=== PATIENT | male | born 1980 | race Caucasian/White ===

== ENCOUNTER 2017-04-23 15:14 | Inpatient (IN) | payer SELFPAY ==
[~2017-04-23] VITALS: Ht 182.9 cm; Wt 106.6 kg
[2017-04-23] VITALS (19 sets, daily range): BP systolic 96–175; BP diastolic 49–75; PULSE 107–134; RESP 25–34; TEMP 98–99.9; O2SAT 85–100
[2017-04-23] MEDS ORDERED: BACT400T PO (15:24)
[2017-04-23] MEDS ORDERED: CLIN300C5 PO (15:24)
[2017-04-23] MEDS ORDERED: PROPOFOL 1000 MG/100 ML INJ 100 ML ONE (15:38)
[2017-04-23] MEDS: PROPOFOL 1000 MG/100 ML INJ 100 ML IV PRN ×4 (15:44→22:41)
[2017-04-23] MEDS ORDERED: SUCCINYLCHOLINE CHLORIDE 100 MG/5 ML SYRINGE IV PUSH ONE (15:45)
[2017-04-23] MEDS ORDERED: ETOMIDATE 20 MG/10 ML VIAL IV PUSH ONE (15:45)
[2017-04-23] MEDS ORDERED: SODIUM CHLOR 0.9% 1000 ML INJ 1,000 ML IV ONE ×4 (15:45→17:00)
[2017-04-23] MEDS ORDERED: VANCOMYCIN INJ 1,300 MG in SODIUM CHLORID 0.9% 500 ML INJ 500 ML IV ONE (15:45)
[2017-04-23] MEDS ORDERED: PIPERACIL-TAZO 3.375 GM PREMIX 50 ML IV ONE (15:45)
--- NOTE | 2017-04-23 16:02 | PD ---
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 Pt is very tachypneic and saturating at mid 80s on 100% nonrebreather. 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 Pt has been having abdominal pain as well with fever, vomiting. Has been having bilateral lower extremity edema for 2 weeks. Pt has been on bactrim and clindamycin for a foot infection. [facility] Social History Alcohol Use: Yes Tobacco Use: Yes Substance Use: Yes Allergies-Medications (Allergen,Severity, Reaction): Coded Allergies: No Known Allergies (Unverified , 04/23/17) Reported Meds & Prescriptions Reported Meds & Active Scripts Active Reported Bactrim (Sulfamethoxazole-Trimethoprim) 400-80 Mg Tab 1 Tab PO BID Clindamycin (Clindamycin HCl) 300 Mg Cap 300 Mg PO Q6H Review of Systems ROS Limitations: Clinical Condition Physical Exam Narrative GENERAL: 36yo in severe distress. SKIN: Focused skin assessment warm/dry. HEAD: Atraumatic. Normocephalic. EYES: Pupils equal and round. No scleral icterus. No injection or drainage. ENT: No nasal bleeding or discharge. Mucous membranes pink and moist. NECK: Trachea midline. No JVD. CARDIOVASCULAR: Regular rate and rhythm. No murmur appreciated. RESPIRATORY: + accessory muscle use. Slight end inspiratory wheezing. GASTROINTESTINAL: Abdomen soft, non-tender, nondistended. MUSCULOSKELETAL: +Bilateral lower extremity edema. NEUROLOGICAL: Awake and alert but in severe distress. Data Data Last Documented VS Vital Signs Date Time Temp Pulse Resp B/P (MAP) Pulse Ox O2 Delivery O2 Flow Rate FiO2 04/23/17 17:05 126 133/60 (84) 97 Ventilator 04/23/17 16:24 100 04/23/17 15:19 98.0 Orders Orders Propofol 1000 Mg/100 Ml Inj (Diprivan 10 (04/23/17 15:38) Chest, Single Ap (04/23/17 ) Blood Culture (04/23/17 15:36) Complete Blood Count With Diff (04/23/17 15:36) Comprehensive Metabolic Panel (04/23/17 15:36) Prothrombin Time / Inr (Pt) (04/23/17 15:36) Act Partial Throm Time (Ptt) (04/23/17 15:36) Troponin I (04/23/17 15:36) Propofol 1000 Mg/100 Ml Inj (Diprivan 10 (04/23/17 15:45) ^ Infusion (04/23/17 15:36) RASS (04/23/17 15:36) Neurological Rass Scale BESS.Q2H (04/23/17 15:36) Etomidate Inj (Amidate Inj) (04/23/17 15:45) Succinylcholine Inj (Quelicin Inj) (04/23/17 15:45) Urinary Catheter Insert/Apply (04/23/17 15:36) Lactic Acid Sepsis Protocol (04/23/17 15:36) Sodium Chlor 0.9% 1000 Ml Inj (Ns 1000 M (04/23/17 15:45) Vancomycin Inj (Vancomycin Inj) (04/23/17 15:45) Piperacil-Tazo 3.375 Gm Premix (Zosyn 3. (04/23/17 15:45) Arterial Blood Gas (Abg) (04/23/17 ) Precautions (04/23/17 16:02) Us Leg Venous Doppler Bilat (04/23/17 ) Neurological Rass Scale Q30MX2,Q2HX4,Q4H (04/23/17 16:25) Fentanyl Drip (Fentanyl Drip) (04/23/17 16:30) Fentanyl Drip (Fentanyl Drip) (04/23/17 16:39) Sodium Chlor 0.9% 1000 Ml Inj (Ns 1000 M (04/23/17 17:00) Sodium Chlor 0.9% 1000 Ml Inj (Ns 1000 M (04/23/17 17:00) Sodium Chlor 0.9% 1000 Ml Inj (Ns 1000 M (04/23/17 17:00) Elevate Head Of Bed (04/23/17 17:10) Chlorhexidine 0.12% Liq (Peridex 0.12% L (04/23/17 20:00) Resp Ventilation- Pressure (04/23/17 ) Restraints Non-Violent BESS.Q3H (04/23/17 17:10) Ventilator Weaning Readiness BESS.DAILY@0800 (04/23/17 17:10) Resp Spont Breath Trial (Sbt) (04/23/17 ) Propofol 1000 Mg/100 Ml Inj (Diprivan 10 (04/23/17 17:15) Neurological Rass Scale Q30MX2,Q2HX4,Q4H (04/23/17 17:10) Midazolam 100 Mg/100 Ml Inj (Versed Inj) (04/23/17 17:15) Neurological Rass Scale Q30MX2,Q2HX4,Q4H (04/23/17 17:10) Neurological Rass Scale Q30MX2,Q2HX4,Q4H (04/23/17 17:10) Fentanyl Drip (Fentanyl Drip) (04/23/17 17:15) Urinalysis - C+S If Indicated (04/23/17 17:14) Admit Order (Ed Use Only) (04/23/17 17:15) Labs Laboratory Tests Test 04/23/17 08:30 04/23/17 15:45 04/23/17 16:13 Nasal Screen MRSA (PCR) MRSA NOT DETECTED White Blood Count 37.5 TH/MM3 Red Blood Count 3.83 MIL/MM3 Hemoglobin 9.9 GM/DL Hematocrit 31.8 % Mean Corpuscular Volume 83.2 FL Mean Corpuscular Hemoglobin 25.9 PG Mean Corpuscular Hemoglobin Concent 31.1 % Red Cell Distribution Width 16.2 % Platelet Count 206 TH/MM3 Mean Platelet Volume 10.1 FL Neutrophils (%) (Auto) 83.6 % Lymphocytes (%) (Auto) 10.8 % Monocytes (%) (Auto) 4.6 % Eosinophils (%) (Auto) 0.2 % Basophils (%) (Auto) 0.8 % Neutrophils # (Auto) 31.4 TH/MM3 Lymphocytes # (Auto) 4.1 TH/MM3 Monocytes # (Auto) 1.7 TH/MM3 Eosinophils # (Auto) 0.1 TH/MM3 Basophils # (Auto) 0.3 TH/MM3 CBC Comment AUTO DIFF Differential Total Cells Counted 100 Neutrophils % (Manual) 83 % Band Neutrophils % 2 % Lymphocytes % 10 % Monocytes % 3 % Neutrophils # (Manual) 32.6 TH/MM3 Myelocytes 2 % Nucleated Red Blood Cells 1 /100 WBC Differential Comment FINAL DIFF MANUAL Platelet Estimate NORMAL Platelet Morphology Comment NORMAL Fabian Cells 1+ Keratocytes 1+ Prothrombin Time 20.7 SEC Prothromb Time International Ratio 1.8 RATIO Activated Partial Thromboplast Time 29.6 SEC Fibrinogen 59 mg/dL Urine Color YELLOW Urine Turbidity HAZY Urine pH 5.0 Urine Specific [place] 1.018 Urine Protein 30 mg/dL Urine Glucose (UA) 70 mg/dL Urine Ketones NEG mg/dL Urine Occult Blood MOD Urine Nitrite NEG Urine Bilirubin NEG Urine Urobilinogen LESS THAN 2.0 MG/DL Urine Leukocyte Esterase NEG Urine WBC 1 /hpf Urine Amorphous Sediment RARE Urine Bacteria RARE /hpf Urine Hyaline Casts 4 /lpf Urine Granular Casts 9 /lpf Urine Mucus FEW /lpf Microscopic Urinalysis Comment CULT NOT INDICATED Urine Eosinophils NONE SEEN /HPF Urine Random Creatinine 123.5 MG/DL Urine Random Sodium 7 MEQ/L Lactic Acid Level 13.7 mmol/L Blood Gas Puncture Site LT RADIAL Blood Gas Patient Temperature 98.6 Blood Gas HCO3 11 mmol/L Blood Gas Base Excess -15.7 mmol/L Blood Gas Oxygen Saturation 97 % Arterial Blood pH 7.19 Arterial Blood Partial Pressure CO2 30 mmHg Arterial Blood Partial Pressure O2 184 mmHG Arterial Blood Oxygen Content 13.0 Vol % Arterial Blood Carboxyhemoglobin 0.9 % Arterial Blood Methemoglobin 0.4 % Blood Gas Hemoglobin 9.2 G/DL Oxygen Delivery Device VENTILATOR Blood Gas Ventilator Setting AC 14/550/5+ Blood Gas Inspired Oxygen 100 % [facility] Medical Decision Making Medical Screen Exam Complete: Yes Emergency Medical Condition: Yes Differential Diagnosis PCP pneumonia vs. Septic emboli vs. Tuberculosis vs. ARDS Narrative Course 36yo M with history of IVDA was in severe respiratory distress and saturating at 80s on 100% nonrebreather. Unable to obtain access we emergently placed a right femoral central line placed and was able to give medication for intubation. Labs reviewed, leukocytosis at 37.5. H/H low at 9.9/31.8 likely secondary to severe sepsis. CMP was a recollect and has not resulted yet. Lactic acid elevated at 13.7. Pt received NS IVF and vancomycin and zosyn. CXR showed bihilar airspace infiltrates which can be seen in pulmonary edema, pneumonia (especially aspiration), or some inhalation injury. ET tube above ayaz. Bilateral lower ext without DVT. CT pulmonary was changed to CT chest with IV contrast to look for septic emboli. CTa/p also pending. Will not give contrast without creatinine result as pt is in severe sepsis. Discussed with Dr. Lemons and accepted to his service. Critical Care Narrative Aggregate critical care time was 50 minutes. Time to perform other separately billable procedures was not included in the critical care time. My time did not include minutes spent treating any other patients simultaneously or on activities that did not directly contribute to the patient's treatment. The services I provided to this patient were to treat and/or prevent clinically significant deterioration that could result in: respiratory distress and . I provided critical care services requiring my management, as noted below: Chart data review, documentation time, medication orders and management, vital sign assessments/reviewing monitor data, ordering and reviewing lab tests, ordering and interpreting/reviewing x-rays and diagnostic studies, care of the patient and discussion of the patient with the admitting physicians. Procedures Procedure Narrative The patient was put in optimal position for the procedure. Rapid sequence intubation was initiated by me using 20 milligrams of etomidate IV and 100 milligrams of succinylcholine IV. The patient was intubated with a 7.5 cuffed endotracheal tube. Tube placement was confirmed by visualization of the tube and balloon passing through the cords, capnometry and subsequent chest x-ray. Breath sounds were equal and well aerated bilaterally postintubation. No breath sounds over stomach. Patient tolerated procedure well. CENTRAL VENOUS LINE: The site was prepped with chlorhexidine and sterily draped. The deep vein was cannulated using normal Seldinger technique. A triple lumen central line was placed in the right femoral site and secured with simple interrupted suture. The site was sterilely dressed. The patient tolerated the procedure well. Diagnosis Primary Impression: Acute respiratory failure with hypoxia Admitting Information Admitting Physician Requests: Jenifer Rob DO Apr 23, 2017 16:01
--- NOTE | 2017-04-23 16:04 | RADRPT ---
EXAM DATE/TIME: 04/23/2017 15:43 [facility] COMPARISON: No previous studies available for comparison. INDICATIONS : Shortness of breath. MEDICAL HISTORY : Unobtainable. SURGICAL HISTORY : Unobtainable. ENCOUNTER: Initial ACUITY: 1 day PAIN SCORE: Non-responsive. LOCATION: Bilateral chest FINDINGS: A single view of the chest demonstrates bihilar infiltrates. Endotracheal tube is identified at the t horacic inlet. Nasogastric tube enters the stomach and extends off the inferior aspect of the image. Heart size is normal. Osseous structures are intact. CONCLUSION: 1. Bihilar airspace infiltrates which can be seen in pulmonary edema, pneumonia (especially aspiratio n) or some inhalation injuries. 2. Endotracheal tube appropriately positioned above the ayaz. Nasogastric tube enters the stomach a nd extends off the inferior aspect of the image Nam Amaya MD on April 23, 2017 at 15:58 Board Certified Radiologist. This report was verified electronically.
[2017-04-23 16:10] LABS: AUTOMATED NEUTROPHIL # 31.4 TH/MM3 (1.8-7.7); BASOPHIL # 0.3 TH/MM3 (0-0.2); BASOPHIL % 0.8 % (0.0-2.0); EOSINOPHIL # 0.1 TH/MM3 (0-0.4); EOSINOPHIL % 0.2 % (0.0-4.0); HEMATOCRIT 31.8 % (39.0-51.0); LYMPH % 10.8 % (9.0-44.0); LYMPHOCYTE # 4.1 TH/MM3 (1.0-4.8); MEAN CELL VOLUME 83.2 FL (80.0-100.0); MEAN CORPUSCULAR HEMOGLOBIN 25.9 PG (27.0-34.0); MEAN CORPUSCULAR HGB CONC 31.1 % (32.0-36.0); MONO % 4.6 % (0.0-8.0); NEUT % 83.6 % (16.0-70.0); PLATELET COUNT 206 TH/MM3 (150-450); RED BLOOD COUNT 3.83 MIL/MM3 (4.50-5.90); RED CELL DISTRIBUTION WIDTH 16.2 % (11.6-17.2); WHITE BLOOD COUNT 37.5 TH/MM3 (4.0-11.0)
[2017-04-23 16:14] LABS: HEMO FLAGS AUTO DIFF
[2017-04-23 16:18] LABS: BLOOD GAS BASE EXCESS -15.7 mmol/L (-2-2); BLOOD GAS CARBOXYHEMOGLOBIN 0.9 % (0-4); BLOOD GAS HCO3 11 mmol/L (22-26); BLOOD GAS METHEMOGLOBIN 0.4 % (0-2); BLOOD GAS O2 HGB SATURATION 97 % (90-100); BLOOD GAS PCO2 30 mmHg (38-42); BLOOD GAS PO2 184 mmHG (61-120); BLOOD GAS TOTAL HGB 9.2 G/DL (12.0-16.0); CRITICAL VALUE YES; OXYGEN DEVICE VENTILATOR; TEMP CORR TO 98.6
[2017-04-23 16:19] LABS: DRAW SITE LT RADIAL; FIO2 100 %; NUMBER OF ARTERIAL PUNCTURES 1; STAT YES; ULNAR PULSE PRESENT; VENT SETTINGS AC 14/550/5+
[2017-04-23 16:23] LABS: APTT (PATIENT) 29.6 SEC (24.3-30.1); INTERNATIONAL NORMALIZED RATIO 1.8 RATIO; PROTHROMBIN TIME - PATIENT 20.7 SEC (9.8-11.6)
[2017-04-23] MEDS ORDERED: fentaNYL DRIP 250 ML IV PRN (16:30)
[2017-04-23] MEDS ORDERED: fentaNYL DRIP 250 ML ONE (16:39)
--- NOTE | 2017-04-23 17:02 | RADRPT ---
EXAM DATE/TIME: 04/23/2017 16:26 [facility] COMPARISON: No previous studies available for comparison. INDICATIONS : Bilateral leg swelling. MEDICAL HISTORY : Alcohol use. Substance use. Tobacco use. SURGICAL HISTORY : None. ENCOUNTER: Initial ACUITY: 1 day PAIN SCORE: Non-responsive LOCATION: Bilateral legs. TECHNIQUE: Venous ultrasound of the left and right leg was performed from the inguinal ligament to the proximal calf. Real-time, color Doppler and spectral tracing, compression and augmentation techniques were us ed. FINDINGS: RIGHT LEG: There is normal compressibility of the deep venous system from the inguinal region to the proximal ca lf. No echogenic clot is seen in the lumen of the common femoral, femoral, popliteal, and posterior tibial veins. There is a normal response of the venous system to proximal and distal augmentation an d respiration. LEFT LEG: There is normal compressibility of the deep venous system from the inguinal region to the proximal ca lf. No echogenic clot is seen in the lumen of the common femoral, femoral, popliteal, and posterior tibial veins. There is a normal response of the venous system to proximal and distal augmentation an d respiration. CONCLUSION: No DVT is identified within either lower extremity. Lucian Cai MD on April 23, 2017 at 17:00 Board Certified Radiologist. This report was verified electronically.
[2017-04-23 17:08] LABS: BANDS 2 % (0-6); CORRECTED NUCLEATED RBC 1 /100 WBC (0-0); MYELOCYTES 2 % (0-0); NEUTROPHIL # MANUAL DIFF 32.6 TH/MM3 (1.8-7.7); POLYS (SEG NEUTROPHILS) 83 % (16-70); WBC DIFF SAMPLE 100
[2017-04-23 17:09] LABS: BURR CELLS 1+ (NORMAL); KERATOCYTES 1+ (NORMAL)
[2017-04-23 17:10] LABS: PLATELET ESTIMATE SMEAR NORMAL (NORMAL); PLATELET MORPHOLOGY NORMAL (NORMAL); SCAN/DIFF FINAL DIFF MANUAL
[2017-04-23] MEDS ORDERED: SODIUM CHLORIDE 0.9% FLUSH 10 ML FLUSH IV FLUSH PRN ×2 (17:15→17:30)
[2017-04-23] MEDS ORDERED: CHLORHEXIDINE GLUCONATE 2 % 1 PACK (2 CLOTHS) TOP PRN ×2 (17:15→17:30)
[2017-04-23] MEDS ORDERED: Vancomycin Consult Pharmacy 1 EA OTHER SCH (17:15)
[2017-04-23] MEDS ORDERED: MISCELLANEOUS NURSING INFORMATION XX SCH ×2 (17:15→17:30)
[2017-04-23] MEDS ORDERED: SODIUM CHLOR 0.9% 1000 ML INJ 1,000 ML IV SCH (17:19)
[2017-04-23] MEDS ORDERED: BISACODYL 10 MG SUPP RECTAL PRN (17:30)
[2017-04-23] MEDS ORDERED: SENNOSIDES 8.6 MG TAB PO PRN (17:30)
[2017-04-23] MEDS ORDERED: RESP: ALBUTEROL 2.5 MG/3 ML NEB (PRN) INH (17:30)
[2017-04-23] MEDS ORDERED: ACETAMINOPHEN 325 MG TAB PO PRN (17:30)
[2017-04-23] MEDS ORDERED: ONDANSETRON HCL 4 MG/2 ML VIAL IV PUSH PRN (17:30)
[2017-04-23] MEDS ORDERED: MAGNESIUM HYDROXIDE SUSP 30 ML CUP PO PRN (17:30)
[2017-04-23] MEDS ORDERED: LACTULOSE SYRUP 20 GM/30 ML CUP PO PRN (17:30)
[2017-04-23] MEDS ORDERED: MIDAZOLAM 100 MG/100 ML INJ 100 ML ONE (17:39)
--- NOTE | 2017-04-23 17:55 | HHI.HP ---
[facility] Critical Care Medicine Primary Care Physician No Primary Care Physician Admission Diagnosis Hypoxic respiratory failure Diagnosis: (1) Acute hypercapnic respiratory failure Diagnosis: Principal (2) IV drug abuse Diagnosis: Principal (3) Lactic acid acidosis Diagnosis: Principal (4) Anemia Diagnosis: Principal (5) Leukocytosis Diagnosis: Principal (6) Elevated troponin Diagnosis: Principal (7) Transaminitis Diagnosis: Principal (8) Hyponatremia Diagnosis: Principal (9) Hypoalbuminemia Diagnosis: Principal (10) Acute kidney injury Diagnosis: Principal (11) Hyperkalemia Diagnosis: Principal (12) Elevated INR Diagnosis: Principal Chief Complaint: Presents to [place] of acutely short of breath, nausea and vomiting Travel History International Travel<30 Days: No Contact w/Intl Traveler <30 Da: No Traveled to Known Affected Are: No History of Present Illness This is a 36-year-old male. He admission 04/23/2017. Past mesentery history is defined as prior IV drug use, Mycobacterium diagnosis untreated and bilateral lower extremity cellulitis. Today he presents to [place] ED in acute hypercapnic hypoxic respiratory distress. According to records, prior to intubation patient was on nonrebreather with saturations in the mid 80s. 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 Pt has been having abdominal pain as well with fever, vomiting. Has been having bilateral lower extremity edema for 2 weeks. Pt has been on Bactrim and clindamycin for a foot infection. Patient was intubated with a 7.5 ET tube after receiving 20 mg etomidate 100 mg succinylcholine. Patient has significant respiratory and anion gap metabolic acidosis on his ABG. Chest x-ray showed bilateral upper lobe infiltrates versus pneumonia versus edema versus other. Ultrasound bilateral lower extremities revealed no DVT. CT thorax currently ordered along with head, abdomen and pelvis. Patient had a significant leukocytosis of 37,000. Anemia with a hemoglobin 10. Also pertinent, Patient elevated creatinine around 2.2. Elevated potassium 5.7. Elevated transaminases. With an AST in the 1400s ALT in the 500s. Low sodium. Elevated troponin. EKG and T echocardiogram is currently pending. Patient did received piperacillin/tazobactam and vancomycin in the ED. 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 I attempted to contact me at . Voicemail Review of Systems ROS Limitations: Intubated Past Family Social History Allergies: Coded Allergies: No Known Allergies (Unverified , 04/23/17) Past Medical History IV drug use Past Surgical History None documented Reported Medications Bactrim (Sulfamethoxazole-Trimethoprim) 400-80 Mg Tab 1 Tab PO BID Clindamycin (Clindamycin HCl) 300 Mg Cap 300 Mg PO Q6H Active Ordered Medications Reviewed in EMR Family History Mother and father is currently unobtainable Social History Prior documentation of IV drug use noted. Positive tobacco. No alcohol Physical Exam Vital Signs Vital Signs Date Time Temp Pulse Resp B/P (MAP) Pulse Ox O2 Delivery O2 Flow Rate FiO2 04/23/17 17:34 121 131/63 (85) 100 Ventilator 04/23/17 17:22 100 100 04/23/17 17:05 126 133/60 (84) 97 Ventilator 04/23/17 16:27 124 137/62 (87) 100 Ventilator 04/23/17 16:24 100 100 04/23/17 16:13 129 144/65 (91) 100 Ventilator 04/23/17 15:54 93 100 04/23/17 15:36 124 166/75 (105) 97 Ventilator 04/23/17 15:28 125 161/68 (99) 92 Ventilator 04/23/17 15:27 100 04/23/17 15:19 98.0 134 175/74 (107) 85 Physical Exam GENERAL: 36-year-old male, critically ill currently orotracheally intubated SKIN: Warm and very wet. Well-perfused. HEAD: Atraumatic. Normocephalic. EYES: Pupils equal and round about 2 mm bilaterally and reactive. No scleral icterus. No injection or drainage. ENT: No nasal bleeding or discharge. Mucous membranes pink and moist. Oropharynx without erythema NECK: Trachea midline. No JVD. CARDIOVASCULAR: Tachycardic, RR. S1, S2. No S4. I do not appreciate a murmur RESPIRATORY: Positive accessory muscle use. Rhonchorous breath sounds are appreciated throughout lung. His anterior and posteriorly. GASTROINTESTINAL: Abdomen soft, non-tender, nondistended. Hypoactive bowel sounds appreciated MUSCULOSKELETAL: Extremities with 1+ bilateral lower extremity below the knee edema. No obvious deformities. NEUROLOGICAL: Patient is currently orotracheally intubated on propofol and fentanyl drips. Positive gag. Positive corneal reflex. Mouth is open. Withdraws to pain bilateral upper and lower extremities. Laboratory Laboratory Tests Test 04/23/17 15:45 04/23/17 16:13 04/23/17 17:20 04/23/17 17:31 White Blood Count 37.5 Red Blood Count 3.83 Hemoglobin 9.9 Hematocrit 31.8 Mean Corpuscular Volume 83.2 Mean Corpuscular Hemoglobin 25.9 Mean Corpuscular Hemoglobin Concent 31.1 Red Cell Distribution Width 16.2 Platelet Count 206 Mean Platelet Volume 10.1 Neutrophils (%) (Auto) 83.6 Lymphocytes (%) (Auto) 10.8 Monocytes (%) (Auto) 4.6 Eosinophils (%) (Auto) 0.2 Basophils (%) (Auto) 0.8 Neutrophils # (Auto) 31.4 Lymphocytes # (Auto) 4.1 Monocytes # (Auto) 1.7 Eosinophils # (Auto) 0.1 Basophils # (Auto) 0.3 CBC Comment AUTO DIFF Differential Total Cells Counted 100 Neutrophils % (Manual) 83 Band Neutrophils % 2 Lymphocytes % 10 Monocytes % 3 Neutrophils # (Manual) 32.6 Myelocytes 2 Nucleated Red Blood Cells 1 Differential Comment FINAL DIFF MANUAL Platelet Estimate NORMAL Platelet Morphology Comment NORMAL [place] Cells 1+ Keratocytes 1+ Prothrombin Time 20.7 Prothromb Time International Ratio 1.8 Activated Partial Thromboplast Time 29.6 Lactic Acid Level 13.7 Blood Gas Puncture Site LT RADIAL Blood Gas Patient Temperature 98.6 Blood Gas HCO3 11 Blood Gas Base Excess -15.7 Blood Gas Oxygen Saturation 97 Arterial Blood pH 7.19 Arterial Blood Partial Pressure CO2 30 Arterial Blood Partial Pressure O2 184 Arterial Blood Oxygen Content 13.0 Arterial Blood Carboxyhemoglobin 0.9 Arterial Blood Methemoglobin 0.4 Blood Gas Hemoglobin 9.2 Oxygen Delivery Device VENTILATOR Blood Gas Ventilator Setting AC 14/550/5+ Blood Gas Inspired Oxygen 100 Date/Time Source Procedure Growth Status 04/23/17 15:50 Blood Peripheral Aerobic Blood Culture Pending Received 04/23/17 15:50 Blood Peripheral Anaerobic Blood Culture Pending Received Result Diagram: 04/23/17 1545 Imaging Last Impressions Lower Extremity Ultrasound 04/23/17 0000 Signed Impressions: Service Date/Time: Sunday, April 23, 2017 16:26 - CONCLUSION: No DVT is identified within either lower extremity. Lucian Cai MD Chest X-Ray 04/23/17 0000 Signed Impressions: Service Date/Time: Sunday, April 23, 2017 15:43 - CONCLUSION: 1. Bihilar airspace infiltrates which can be seen in pulmonary edema, pneumonia ( especially aspiration) or some inhalation injuries. 2. Endotracheal tube appropriately positioned above the ayaz. Nasogastric tube enters the stomach and extends off the inferior aspect of the image Nam Amaya MD Septic Shock Reassessment Heart: Other Lungs: Other Skin: Warm, Moist Peripheral Pulses: Weak Right Radial Weak Left Radial Weak Right Popliteal Weak Left Popliteal Weak Right Dorsalis Pedis Weak Left Dorsalis Pedis Weak Right Posterior Tibial Weak Left Posterior Tibial Capillary Refill: Brisk, <2 seconds Caprini VTE Risk Assessment Caprini VTE Risk Assessment: Mod/High Risk (score >= 2) VTE Pharm Contraindication: Coagulopathy,INR elevated Caprini Risk Assessment Model Point Value = 1 Point Value = 2 Point Value = 3 Point Value = 5 Age 41-60 Minor surgery BMI > 25 kg/m2 Swollen legs Varicose veins or History of unexplained or recurrent spontaneous Oral contraceptives or hormone replacement Sepsis (< 1 month) Serious lung disease, including pneumonia (< 1 month) Abnormal pulmonary function Acute myocardial infarction Congestive heart failure (< 1 month) History of inflammatory bowel disease Medical patient at bed rest Age 61-74 Arthroscopic surgery Major open surgery (> 45 min) Laparoscopic surgery (> 45 min) Malignancy Confined to bed (> 72 hours) Immobilizing plaster cast Central venous access Age >= 75 History of VTE Family history of VTE Factor V Leiden Prothrombin [id number] Lupus anticoagulant Anticardiolipin antibodies Elevated serum homocysteine Heparin-induced thrombocytopenia Other congenital or acquired thrombophilia Stroke (< 1 month) Elective arthroplasty Hip, pelvis, or leg fracture Acute spinal cord injury (< 1 month) Prophylaxis Regimen Total Risk Factor Score Risk Level Prophylaxis Regimen 0-1 Low Early ambulation 2 Moderate Order ONE of the following: *Sequential Compression Device (SCD) *Heparin 5000 units SQ BID 3-4 Higher Order ONE of the following medications: *Heparin 5000 units SQ TID *Enoxaparin/Lovenox 40 mg SQ daily (WT < 150 kg, CrCl > 30 mL/min) *Enoxaparin/Lovenox 30 mg SQ daily (WT < 150 kg, CrCl > 10-29 mL/min) *Enoxaparin/Lovenox 30 mg SQ BID (WT < 150 kg, CrCl > 30 mL/min) AND/OR *Sequential Compression Device (SCD) 5 or more Highest Order ONE of the following medications: *Heparin 5000 units SQ TID (Preferred with Epidurals) *Enoxaparin/Lovenox 40 mg SQ daily (WT < 150 kg, CrCl > 30 mL/min) *Enoxaparin/Lovenox 30 mg SQ daily (WT < 150 kg, CrCl > 10-29 mL/min) *Enoxaparin/Lovenox 30 mg SQ BID (WT < 150 kg, CrCl > 30 mL/min) AND *Sequential Compression Device (SCD) Assessment and Plan Assessment and Plan Neuro/Psych: Acute toxic metabolic encephalopathy Patient is currently on propofol/fentanyl and midazolam drips for sedation/ analgesia while intubated Goal of RASS -[address] brain pending Urine drug screen, alcohol, slightly less, acetaminophen all pending Started on thiamine, folate and multivitamin with possible prior history of EtOH use. CV: Sinus tachycardia Severe sepsis with multiorgan failure Lactic acidosis Elevated troponin - likely demand ischemia type II secondary to sepsis Status post 5 L crystalloid in ED Currently normal saline at 84 cc an hour Currently not requiring vasopressors and/or anti-hypertensives Lactate 13.7-9. Trend until cleared Trend troponins every 8 hours 2 until clear. EKG/echo cardiac him to be followed up Resp: Acute hypoxic hypercapnic respiratory failure PRVC 16/500/1/5/100 Ventilator bundle Albuterol/ipratropium aerosols every 6 hours with albuterol aerosols every 2 hours as needed for dyspnea Spontaneous breathing trials when clinically indicated Today's chest x-ray revealed upper lobe infiltrate/pulmonary edema CT thorax pending GI: Elevated transaminases Hypoalbuminemia Patient is currently nothing by mouth Lansoprazole for GI prophylaxis Accurate sodium/senna 1 tablet twice a day for bowel regimen Follow-up on CT abdomen/pelvis rule out hepatic etiologies. CPK and hepatitis panels pending : Hutchins catheter has been placed for accurate I's and O's in a critically ill patient Endo: Sliding-scale insulin with Accu-Cheks to maintain euglycemia Novulon r every 6 hours/low regimen Check TSH Renal: Acute kidney injury Urine sodium, creatinine and eosinophils pending Status post 5 L crystalloid in the ED. CT abdomen/pelvis rule out hydronephrosis. Monitor urine output with Hutchins catheter Accurate I's and O's Heme: Leukocytosis Normocytic anemia Elevated INR Follow CBC daily. Follow trends Vitamin K 10 milligrams IV 1 now. Recheck coags in a.m. and fibrinogen ID: History of Mycobacterium exposure? Severe sepsis with history of IV drug use Patient is currently in vancomycin, cefepime, metronidazole and azithromycin Received 1 dose of vancomycin and piperacillin/tazobactam in ED Blood cultures 2, urine, sputum, influenza and urine pneumococcal and Legionella antigens all pending 2-D acute cardiac him rule out endocarditis Infectious disease was consulted MSK: PT evaluate and treat Dopplers bilateral extremity is negative for DVT FEN: Hyponatremia Hyperkalemia 1 g Calcium gluconate, 10 units insulin/one ampule D50 and Kayexalate 1. Recheck potassium with EKG 3 hours. Currently normal saline at 6 84 cc an hour Access - Utilize right femoral CVL day 1 placed in ED. Prophylaxis -GI -lansoprazole - DVT - SCD/holding pharmacological prophylaxis elevated INR of 1.8 Critical Care: The total critical care time was 35 minutes. Time to perform other separately billable procedures was not included in the critical care time. Code Status Full code Discussed Condition With , ED physician. Attempt to contact Dr. Figueroa at [phone]. No answer. Problem Qualifiers (1) Anemia: Qualified Codes: D64.9 - Anemia, unspecified (2) Leukocytosis: Qualified Codes: D72.829 - Elevated white blood cell count, unspecified Antony Lemons MD Apr 23, 2017 17:55
[2017-04-23] MEDS: ARTIFICIAL TEARS OPTH SOLN 15 ML BTL EACH EYE SCH (18:00)
[2017-04-23 18:01] LABS: LACTIC ACID GHOST NOT REPORTABLE
[2017-04-23 18:12] LABS: CALCIUM-PROTEIN CORRECTED 7.5 MG/DL (8.5-10.1); POTASSIUM 5.6 MEQ/L (3.5-5.1); TOTAL BILIRUBIN ADULT 0.9 MG/DL (0.2-1.0)
[2017-04-23] MEDS ORDERED: DEXTROSE 50% IN WATER 50 ML VIAL(D50) IV PUSH ONE (18:30)
[2017-04-23] MEDS ORDERED: CALCIUM GLUCONATE 10% 1 GM/10 ML VIAL SLOW IVP ONE (18:30)
[2017-04-23] MEDS ORDERED: CHLORHEXIDINE GLUCONATE 2 % 1 PACK (2 CLOTHS)(extra cloths) TOPICAL PRN (18:30)
[2017-04-23] MEDS ORDERED: SODIUM POLYSTYRENE SULFONATE SUSP 15 GM/60 ML CUP PO ONE (18:30)
[2017-04-23] MEDS ORDERED: SODIUM BICARBONATE 8.4% SOLN 50 MEQ/50 ML VIAL SLOW IVP ONE (18:30)
[2017-04-23] MEDS ORDERED: INSULIN HUMAN REGULAR 1,000 UNITS/10 ML VIAL IV PUSH ONE (18:30)
[2017-04-23 18:33] LABS: BACTERIA, URINE RARE /hpf; BLOOD, URINE MOD (NEG); COMMENT (UR) CULT NOT INDICATED; CULTURE IF INDICATED CULT NOT INDICATED; GLUCOSE,URINE 70 mg/dL (NEG); GRANULAR CAST, URINE 9 /lpf; HYALINE CAST, URINE 4 /lpf (RARE); KETONE, URINE NEG (NEG); MUCUS URINE FEW /lpf (OCC); NITRITE,URINE NEG (NEG); URINE COLOR YELLOW (YELLW/STRAW)
[2017-04-23] MEDS ORDERED: GLUCAGON 1 MG/ML VIAL OTHER PRN (18:45)
[2017-04-23] MEDS ORDERED: THIAMINE INJ 100 MG in SODIUM CHLORIDE 0.9% INJ 100 ML IV ONE (18:45)
[2017-04-23] MEDS ORDERED: PHYTONADIONE INJ 10 MG in SODIUM CHLORIDE 0.9% INJ 50 ML IV ONE (19:00)
[2017-04-23] MEDS ORDERED: AZITHROMYCIN INJ 500 MG in SODIUM CHLOR 0.9% 250 ML INJ 250 ML IV SCH (19:00)
[2017-04-23] MEDS ORDERED: PHARMACY ORDERED LAB ONE (19:15)
[2017-04-23] MEDS: fentaNYL DRIP 250 ML IV PRN (19:17)
[2017-04-23] MEDS: MIDAZOLAM 100 MG/100 ML INJ 100 ML IV PRN (19:17)
[2017-04-23 19:40] LABS: LACTIC ACID GHOST NOT REPORTABLE
[2017-04-23] MEDS ORDERED: SODIUM CHLORIDE 0.9% FLUSH 10 ML FLUSH IV FLUSH SCH (21:00)
[2017-04-23] MEDS ORDERED: HEPARIN SODIUM - SQ 10,000 UNITS/ML VIAL SQ SCH (21:00)
[2017-04-23] MEDS: RESP: ALBUTEROL 2.5 MG/IPRATROPIUM 0.5 MG NEB (SCH) INH (21:25)
--- NOTE | 2017-04-23 22:03 | RADRPT ---
EXAM DATE/TIME: 04/23/2017 21:50 [facility] COMPARISON: No previous studies available for comparison. INDICATIONS : Altered mental status. RADIATION DOSE: 62.48 CTDIvol (mGy) ; Tabletop CT Head MEDICAL HISTORY : Non-responsive. SURGICAL HISTORY : Non-responsive. ENCOUNTER: Initial ACUITY: 1 day PAIN SCALE: Non-responsive LOCATION: cranial TECHNIQUE: Multiple contiguous axial images were obtained of the head. Using automated exposure control and adj ustment of the mA and/or kV according to patient size, radiation dose was kept as low as reasonably a chievable to obtain optimal diagnostic quality images. DICOM format image data is available electro nically for review and comparison. FINDINGS: CEREBRUM: Ventricles are normal. There is ill-defined area of low density, likely edema in the left parietal hi gh convexity measuring approximately 2.6 cm. It is primarily in the subcortical white matter but may also involve the aleman matter. Otherwise, no of midline shift, mass lesion, hemorrhage or acute infarc tion. No extra-axial fluid collections are seen. POSTERIOR FOSSA: The cerebellum and brainstem demonstrate no acute finding.. The 4th ventricle is midline. The cereb ellopontine angle is unremarkable. EXTRACRANIAL: Visualized sinuses are clear. SKULL: The calvaria is intact. No evidence of skull fracture. CONCLUSION: Abnormal area of low density in the left parietal high convexity primarily in the subcortical white m atter. It most likely represents an area of vasogenic edema but cytotoxic edema associated with ische tash could have a similar appearance. When patient condition permits consider further characterization with MRI. Lucian Cai MD on April 23, 2017 at 21:57 Board Certified Radiologist. This report was verified electronically.
--- NOTE | 2017-04-23 22:15 | RADRPT ---
EXAM DATE/TIME: 04/23/2017 21:54 [facility] COMPARISON: No previous studies available for comparison. INDICATIONS : Abdominal pain prior to intubation. ORAL CONTRAST: No oral contrast ingested. RADIATION DOSE: 20.32 CTDIvol (mGy) ; Combined studies - Thorax/Abdomen/Pelvis MEDICAL HISTORY : Non-responsive. SURGICAL HISTORY : Non-responsive. ENCOUNTER: Initial ACUITY: 1 day PAIN SCALE: Non-responsive LOCATION: Bilateral abdomen TECHNIQUE: Volumetric scanning of the abdomen and pelvis was performed. Using automated exposure control and ad justment of the mA and/or kV according to patient size, radiation dose was kept as low as reasonably achievable to obtain optimal diagnostic quality images. DICOM format image data is available electro nically for review and comparison. FINDINGS: LOWER LUNGS: Please refer to chest CT report for description of the supradiaphragmatic findings. LIVER: Liver measures 21.3 cm in length. No focal lesion is seen on this noncontrast exam. There is no dilat ion of the biliary tree. No calcified gallstones. SPLEEN: Normal size without lesion. PANCREAS: No gross abnormality. KIDNEYS: Normal in size and shape. There is no mass, stone, or hydronephrosis. ADRENAL GLANDS: Within normal limits. VASCULAR: There is no aortic aneurysm. There is a right common femoral line in place with distal tip in the rig ht common iliac vein. There is a small amount of air within the right common femoral vein. BOWEL/MESENTERY: The stomach, small bowel, and colon demonstrate no acute abnormality. There is no free intraperitone al air or fluid. Nasogastric tube distal tip is in the distal stomach. ABDOMINAL WALL: Within normal limits. RETROPERITONEUM: There is no lymphadenopathy. BLADDER: Hutchins catheter is present within the urinary bladder. Air is present. REPRODUCTIVE: Within normal limits. INGUINAL: There is no lymphadenopathy or hernia. There is mild inflammation in the right inguinal region adjace nt to the femoral venous line with mild hemorrhage adjacent to the right external iliac vessels. MUSCULOSKELETAL: No acute abnormality. CONCLUSION: 1. No acute finding is identified within the abdomen or pelvis on this noncontrast examination. 2. There are expected changes associated with the right femoral venous line including surrounding inf lammation and mild hemorrhage. 3. Mild hepatomegaly. 4. Please refer to chest CT report for description of the supradiaphragmatic findings. Lucian Cai MD on April 23, 2017 at 22:06 Board Certified Radiologist. This report was verified electronically.
--- NOTE | 2017-04-23 22:23 | RADRPT ---
EXAM DATE/TIME: 04/23/2017 21:54 [facility] COMPARISON: No previous studies available for comparison. INDICATIONS : Respiratory distress. RADIATION DOSE: 20.32 CTDIvol (mGy) ; Combined studies - Thorax/Abdomen/Pelvis MEDICAL HISTORY : Non-responsive. SURGICAL HISTORY : Non-responsive. ENCOUNTER: Initial ACUITY: 1 day PAIN SCALE: Non-responsive LOCATION: chest TECHNIQUE: Volumetric scanning of the chest was performed. Using automated exposure control and adjustment of t he mA and/or kV according to patient size, radiation dose was kept as low as reasonably achievable to obtain optimal diagnostic quality images. DICOM format image data is available electronically for r eview and comparison. Follow-up recommendations for detected pulmonary nodules are based at a minimum on nodule size and pa tient risk factors according to Fleischner Society Guidelines. FINDINGS: LUNGS: There is severe airspace consolidation bilaterally in a batwing type configuration involving both the upper and lower lung zones. There are also areas of since new septal thickening and groundglass atte nuation. Atelectasis is present in both lower lobes adjacent to the pleural effusions. No pneumothora x is present. PLEURAE: There is a moderate size right and small left simple appearing pleural effusion. MEDIASTINUM: The heart and great vessels demonstrate no acute abnormality on this noncontrast examination. There is no mediastinal or hilar lymphadenopathy. AXILLAE: Within normal limits. No lymphadenopathy. MUSCULOSKELETAL: No acute abnormality. MISCELLANEOUS: Please refer to abdomen and pelvis CT report for description of the subdiaphragmatic findings. CONCLUSION: 1. Severe airspace consolidation bilaterally in a distribution favoring severe pulmonary edema as the etiology. 2. Moderate size right and small left pleural effusion. Lucian Cai MD on April 23, 2017 at 22:19 Board Certified Radiologist. This report was verified electronically.
[2017-04-23] MEDS: CHLORHEXIDINE 0.12% (ORAL KIT) 15 ML CUP MT SCH (22:39)
[2017-04-23] MEDS: metroNIDAZOLE 500 MG INJ 100 ML IV SCH (22:39)
[2017-04-23] MEDS: SODIUM CHLORIDE 0.9% FLUSH 10 ML FLUSH IV FLUSH SCH (22:40)
[2017-04-23] MEDS: DOCUSATE SODIUM 50 MG/SENNA 8.6 MG TAB PO SCH (22:40)
[2017-04-23 22:44] LABS: POTASSIUM 5.4 MEQ/L (3.5-5.1)
[2017-04-23 22:50] LABS: MAGNESIUM 2.6 MG/DL (1.5-2.5)
[2017-04-23] MEDS: CEFEPIME INJ 2,000 MG in SODIUM CHLORIDE 0.9% INJ 100 ML IV SCH (23:04)
[2017-04-23 23:20] LABS: CKMB 15.7 NG/ML (0.5-3.6)
[2017-04-24] VITALS (26 sets, daily range): BP systolic 76–150; BP diastolic 28–70; PULSE 104–116; RESP 24–31; TEMP 99–101; O2SAT 91–100
[2017-04-24] MEDS: RESP: ALBUTEROL 2.5 MG/IPRATROPIUM 0.5 MG NEB (SCH) INH ×6 (00:45→20:00)
[2017-04-24 01:14] LABS: ACETAMINOPHEN LESS THAN 2.0 MCG/ML (10.0-30.0); ALCOHOL LESS THAN 3 MG/DL (0-5); AMYLASE 136 U/L (25-115); BETA-HYDROXYBUTYRATE 0.16 MMOL/L (0.00-0.39)
[2017-04-24] MEDS ORDERED: SODIUM BICARBONATE 8.4% INJ 150 MEQ in DEXTROSE 5% IN WATE 1000ML INJ 1,000 ML IV SCH ×2 (02:00)
[2017-04-24] MEDS: CHLORHEXIDINE GLUCONATE 2 % 1 PACK (2 CLOTHS)(taper/protocol) TOPICAL SCH (02:29)
[2017-04-24] MEDS: CHLORHEXIDINE GLUCONATE 2 % 1 PACK (2 CLOTHS) TOP SCH (02:29)
[2017-04-24] MEDS: CEFEPIME INJ 2,000 MG in SODIUM CHLORIDE 0.9% INJ 100 ML IV SCH ×3 (03:22→21:15)
[2017-04-24] MEDS: metroNIDAZOLE 500 MG INJ 100 ML IV SCH (03:23)
[2017-04-24] MEDS ORDERED: CHLORHEXIDINE GLUCONATE 2 % 1 PACK (2 CLOTHS) TOP SCH (04:00)
[2017-04-24] MEDS ORDERED: VANCOMYCIN INJ 1,800 MG in SODIUM CHLORID 0.9% 500 ML INJ 500 ML IV SCH (04:00)
[2017-04-24 04:30] LABS: BASOPHIL # 0.1 TH/MM3 (0-0.2); BASOPHIL % 0.3 % (0.0-2.0); HEMATOCRIT 24.7 % (39.0-51.0); LYMPH % 7.6 % (9.0-44.0); LYMPHOCYTE # 1.8 TH/MM3 (1.0-4.8); MEAN CELL VOLUME 82.1 FL (80.0-100.0); MEAN CORPUSCULAR HEMOGLOBIN 26.5 PG (27.0-34.0); MEAN CORPUSCULAR HGB CONC 32.3 % (32.0-36.0); MONO % 5.9 % (0.0-8.0); NEUT % 86.2 % (16.0-70.0); PLATELET COUNT 135 TH/MM3 (150-450); RED BLOOD COUNT 3.01 MIL/MM3 (4.50-5.90); WHITE BLOOD COUNT 23.3 TH/MM3 (4.0-11.0)
[2017-04-24 04:46] LABS: HEMO FLAGS AUTO DIFF
[2017-04-24 04:52] LABS: INTERNATIONAL NORMALIZED RATIO 2.4 RATIO; PROTHROMBIN TIME - PATIENT 27.1 SEC (9.8-11.6)
[2017-04-24] MEDS: PROPOFOL 1000 MG/100 ML INJ 100 ML IV PRN ×3 (05:06→21:25)
[2017-04-24 05:34] LABS: BLOOD GAS BASE EXCESS -18.6 mmol/L (-2-2); BLOOD GAS CARBOXYHEMOGLOBIN 0.4 % (0-4); BLOOD GAS HCO3 8 mmol/L (22-26); BLOOD GAS METHEMOGLOBIN 1.2 % (0-2); BLOOD GAS O2 HGB SATURATION 95 % (90-100); BLOOD GAS OXYGEN CONTENT 11.5 Vol % (12.0-20.0); BLOOD GAS PCO2 21 mmHg (38-42); BLOOD GAS PO2 134 mmHg (61-120); BLOOD GAS TOTAL HGB 8.4 G/DL (12.0-16.0); TEMP CORR TO 98.6
[2017-04-24 05:35] LABS: CRITICAL VALUE YES; OXYGEN DEVICE VENTILATOR
[2017-04-24 05:36] LABS: BICARBONATE 14.6 MEQ/L (21.0-32.0); MAGNESIUM 2.4 MG/DL (1.5-2.5); POTASSIUM 6.3 MEQ/L (3.5-5.1); TOTAL BILIRUBIN ADULT 1.3 MG/DL (0.2-1.0)
[2017-04-24 05:36] LABS: DRAW SITE RT FEMORAL; FIO2 40 %; NUMBER OF ARTERIAL PUNCTURES 1; STAT NO; VENT SETTINGS PRVC/AC
[2017-04-24] MEDS: INSULIN NovoLIN REGULAR SUPPLEMENTAL SCALE SQ SCH ×4 (05:44→17:46)
[2017-04-24 05:45] LABS: BANDS 2 % (0-6); MYELOCYTES 3 % (0-0); NEUTROPHIL # MANUAL DIFF 21.7 TH/MM3 (1.8-7.7); POLYS (SEG NEUTROPHILS) 88 % (16-70); WBC DIFF SAMPLE 100
[2017-04-24 05:46] LABS: BURR CELLS 1+ (NORMAL); OVALOCYTES 1+ (NORMAL); PLATELET ESTIMATE SMEAR LOW (NORMAL); PLATELET MORPHOLOGY NORMAL (NORMAL); SCAN/DIFF FINAL DIFF MANUAL
[2017-04-24] MEDS: DEXTROSE 50% IN WATER 50 ML VIAL(D50) IV PUSH PRN ×2 (05:51→06:22)
[2017-04-24 05:53] LABS: CALCIUM-PROTEIN CORRECTED 6.6 MG/DL (8.5-10.1)
[2017-04-24] MEDS ORDERED: SODIUM CHLOR 0.9% 1000 ML INJ 2,000 ML IV ONE (06:00)
[2017-04-24] MEDS: NOREPINEPHRINE 4 MG/D5W 250 ML IV PRN ×2 (06:17→16:09)
[2017-04-24] MEDS ORDERED: CALCIUM CHLORIDE 10% SOLN 1 GRAM/10 ML SYR CENTRAL ONE ×2 (06:45→12:30)
[2017-04-24] MEDS ORDERED: SODIUM BICARBONATE 8.4% SOLN 50 MEQ/50 ML VIAL SLOW IVP ONE ×2 (06:45→12:30)
[2017-04-24] MEDS ORDERED: SODIUM POLYSTYRENE SULFONATE SUSP 15 GM/60 ML CUP PO ONE ×2 (06:45→12:30)
[2017-04-24] MEDS ORDERED: DEXTROSE 50% IN WATER 50 ML VIAL(D50) IV PUSH ONE ×2 (06:45→12:30)
[2017-04-24] MEDS ORDERED: INSULIN HUMAN REGULAR 1,000 UNITS/10 ML VIAL IV PUSH ONE ×2 (06:45→12:30)
[2017-04-24] MEDS ORDERED: PHYTONADIONE INJ 10 MG in SODIUM CHLORIDE 0.9% INJ 50 ML IV ONE (07:15)
[2017-04-24] MEDS ORDERED: PROTHROMBIN COMPLEX CONC INJ 2,500 UNITS in SYRINGE/BAG 1 EA IV ONE (07:30)
[2017-04-24] MEDS: CHLORHEXIDINE 0.12% (ORAL KIT) 15 ML CUP MT SCH ×2 (07:32→23:42)
[2017-04-24] MEDS: SODIUM BICARBONATE 8.4% INJ 150 MEQ in WATER STERILE FOR INJ 850 ML IV SCH ×3 (07:55→21:14)
[2017-04-24] MEDS: THIAMINE INJ 100 MG in SODIUM CHLORIDE 0.9% INJ 100 ML IV SCH (08:48)
[2017-04-24] MEDS: FOLIC ACID 1 MG TAB PO SCH (08:48)
[2017-04-24] MEDS: LANSOPRAZOLE SOLUTAB 30 MG TAB G-TUBE SCH (08:48)
[2017-04-24] MEDS: ARTIFICIAL TEARS OPTH SOLN 15 ML BTL EACH EYE SCH ×3 (08:48→17:45)
[2017-04-24] MEDS: SODIUM CHLORIDE 0.9% FLUSH 10 ML FLUSH IV FLUSH SCH ×2 (08:48→21:15)
[2017-04-24] MEDS: MULTIVITAMIN TAB PO SCH (08:48)
[2017-04-24] MEDS: DOCUSATE SODIUM 50 MG/SENNA 8.6 MG TAB PO SCH ×2 (08:48→21:15)
--- NOTE | 2017-04-24 10:16 | PD.ID.CON ---
History of Present Illness Service ID Consult Requested By Reason for Consult Evaluation and Mment of Septic Shock, Staph bacteremia, Endocarditis. 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 Patient was admitted to the hospital on 04/23/2017, also father reported prior IV drug use. Today he presents to [place] ED in acute hypercapnic hypoxic respiratory distress. According to records, prior to intubation patient was on nonrebreather with saturations in the mid 80s. 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 Pt has been having abdominal pain as well with fever, vomiting. Has been having bilateral lower extremity edema for 2 weeks. Patient was intubated in the ED for respiratory distress. Patient has significant respiratory and anion gap metabolic acidosis on his ABG. Chest x- ray showed bilateral upper lobe infiltrates versus pneumonia versus edema. Ultrasound bilateral lower extremities revealed no DVT. CT thorax currently ordered along with head, abdomen and pelvis. Patient had a significant leukocytosis of 37,000. Anemia with a hemoglobin 10, elevated creatinine around 2.2. Elevated potassium 5.7. Elevated transaminases. With an AST in the 1400s ALT in the 500s. Low sodium. Elevated troponin. ECHO with prelim read of aortic valve endocarditis. Sepsis workup initiated and patient received Zosyn IV and Vanco IV in ED. CT brain with left side infarct and some right side edema. MRI brain done with multiple emboli. Left side with septic emboli possible abscess based on my read. Right side with significant changes plus edema and midline shift minimal. Reviewed imaging with and RN. At the time of my evaluation, patient is in the [facility] unit intubated sedated, on Levophed, UO none. Despite being intubated patient appears tachypneic. ID has been consulted for evaluation and Mment of Septic shock, staph aortic valve endocarditis. Review of Systems ROS Limitations: Intubated, Altered Mental Status Past Family Social History Allergies: Coded Allergies: No Known Allergies (Unverified , 04/23/17) Past Medical History IV drug use No prior known h/o endocarditis or other infections. Past Surgical History None documented. Reported Medications Reported Meds & Active Scripts Active Reported Bactrim (Sulfamethoxazole-Trimethoprim) 400-80 Mg Tab 1 Tab PO BID Clindamycin (Clindamycin HCl) 300 Mg Cap 300 Mg PO Q6H Active Ordered Medications Current Medications Medications (Trade) Dose Ordered Sig/Elda Route Start Time Stop Time Status Last Admin (Peridex 0.12% Liq) 15 ml BID@08,20 MT 04/23/17 20:00 04/24/17 07:32 Propofol 100 ml @ 2.55 mls/hr TITRATE PRN IV 04/23/17 17:15 04/24/17 11:07 Midazolam HCl 100 ml @ 2 mls/hr TITRATE PRN IV 04/23/17 17:15 04/24/17 11:08 Fentanyl Citrate 250 ml @ 5 mls/hr TITRATE PRN IV 04/23/17 17:15 04/24/17 11:08 Cefepime HCl 2000 mg/Sodium Chloride 100 ml @ 200 mls/hr Q8H IV 04/23/17 20:00 04/24/17 03:22 (NS Flush) 2 ml UNSCH PRN IV FLUSH 04/23/17 17:30 (NS Flush) 2 ml BID IV FLUSH 04/23/17 21:00 04/24/17 08:48 (Tylenol) 650 mg Q6H PRN PO 04/23/17 17:30 (Prevacid Odt) 30 mg DAILY G-TUBE 04/24/17 09:00 04/24/17 08:48 (Tears Naturale Opth Soln) 1 drop TID EACH EYE 04/23/17 18:00 04/24/17 08:48 (Zofran Inj) 4 mg Q6H PRN IV PUSH 04/23/17 17:30 (Duoneb Neb) 1 ampule Q4HR NEB INH 04/23/17 20:00 04/24/17 08:31 (Albuterol Neb) 2.5 mg Q2HR NEB PRN INH 04/23/17 17:30 Miscellaneous Information 1 Q361D XX 04/23/17 17:30 04/23/17 17:30 (Chlorhexidine 2% Cloth) 3 pack Taper DAILY@04 TOP 04/24/17 04:00 04/20/18 03:59 (Chlorhexidine 2% Cloth) 3 pack UNSCH PRN TOP 04/23/17 17:30 (Lu-Colace) 1 tab BID PO 04/23/17 21:00 04/24/17 08:48 (Milk Of Magnesia Liq) 30 ml Q12H PRN PO 04/23/17 17:30 (Senokot) 17.2 mg Q12H PRN PO 04/23/17 17:30 (Dulcolax Supp) 10 mg DAILY PRN RECTAL 04/23/17 17:30 (Lactulose Liq) 30 ml DAILY PRN PO 04/23/17 17:30 (Chlorhexidine 2% Cloth) 3 pack DAILY@04 TOPICAL 04/24/17 04:00 04/28/17 04:01 (D50w (Vial) Inj) 50 ml UNSCH PRN IV PUSH 04/23/17 18:45 04/24/17 06:22 (Glucagon Inj) 1 mg UNSCH PRN OTHER 04/23/17 18:45 (NovoLIN R SUPPLEMENTAL SCALE) 1 Q6HR SQ 04/24/17 00:00 Thiamine HCl 100 mg/Sodium Chloride 101 ml @ 101 mls/hr DAILY IV 04/24/17 09:00 04/24/17 08:48 (Theragran) 1 tab DAILY PO 04/24/17 09:00 04/24/17 08:48 (Folate) 1 mg DAILY PO 04/24/17 09:00 04/24/17 08:48 Norepinephrine Bitartrate 250 ml @ 18.75 mls/ hr TITRATE PRN IV 04/24/17 06:00 04/24/17 06:17 Sodium Bicarbonate 150 meq/Sterile Water 1,000 ml @ 150 mls/hr Q6H40M IV 04/24/17 07:00 04/24/17 07:55 Ceftaroline Fosamil 600 mg/ Sodium Chloride 100 ml @ 100 mls/hr Q12H IV 04/24/17 10:30 UNV Family History Mother and father is currently unobtainable. Social History IV drug abuse with opiates and amphetamines. No alcohol. No smoking. Physical Exam Vital Signs Vital Signs Date Time Temp Pulse Resp B/P (MAP) Pulse Ox O2 Delivery O2 Flow Rate FiO2 04/24/17 09:00 113 25 119/56 (77) 91 143/39 (73) 04/24/17 08:31 99 40 04/24/17 08:00 115 04/24/17 08:00 99.2 115 26 124/60 (81) 93 145/37 (73) 04/24/17 08:00 40 04/24/17 07:40 113 124/34 04/24/17 07:30 116 130/36 04/24/17 07:15 109 110/31 04/24/17 06:17 108 81/46 04/24/17 06:00 104 04/24/17 04:00 99.8 107 31 76/36 (49) 100 04/24/17 04:00 50 04/24/17 04:00 107 04/24/17 03:56 100 40 04/24/17 02:00 106 04/24/17 00:45 100 40 04/24/17 00:00 99.9 108 24 88/50 (63) 99 04/24/17 00:00 50 04/24/17 00:00 108 04/23/17 22:32 100 100 04/23/17 22:00 109 04/23/17 21:25 100 40 04/23/17 20:00 109 04/23/17 20:00 50 04/23/17 20:00 99.3 109 25 97/49 (65) 100 04/23/17 19:04 04/23/17 19:00 107 33 96/56 (69) 99 04/23/17 18:33 100 40 04/23/17 18:20 99.9 112 34 108/51 (70) 99 04/23/17 18:20 112 04/23/17 18:20 50 04/23/17 18:05 125 134/74 (94) 100 Ventilator 04/23/17 18:00 100 100 04/23/17 17:34 121 131/63 (85) 100 Ventilator 04/23/17 17:22 100 100 04/23/17 17:05 126 133/60 (84) 97 Ventilator 04/23/17 16:27 124 137/62 (87) 100 Ventilator 04/23/17 16:24 100 100 04/23/17 16:13 129 144/65 (91) 100 Ventilator 04/23/17 16:05 82 100 Ventilator 04/23/17 15:54 93 100 04/23/17 15:36 124 166/75 (105) 97 Ventilator 04/23/17 15:28 125 161/68 (99) 92 Ventilator 04/23/17 15:27 100 04/23/17 15:19 98.0 134 175/74 (107) 85 Physical Exam GENERAL: This is a well-nourished, well-developed patient, in no apparent distress. SKIN: Petechial hemorrhages on bilateral feet and some noted on upper extremities. HEAD: Atraumatic. Normocephalic. No temporal or scalp tenderness. EYES: Pupils equal round and reactive. No scleral icterus. No injection or drainage. ENT: Intubated. NECK: Trachea midline. CARDIOVASCULAR: Regular rate and rhythm. RESPIRATORY: Clear to auscultation. Breath sounds equal bilaterally. GASTROINTESTINAL: Abdomen soft, non-tender, nondistended. MUSCULOSKELETAL: Extremities without clubbing, cyanosis, or edema. NEUROLOGICAL: Sedated. Psych cooperative. IV line sites with no e.o infection. Laboratory Laboratory Tests Test 04/23/17 15:45 04/23/17 16:13 04/23/17 17:20 04/23/17 17:31 White Blood Count 37.5 Red Blood Count 3.83 Hemoglobin 9.9 Hematocrit 31.8 Mean Corpuscular Volume 83.2 Mean Corpuscular Hemoglobin 25.9 Mean Corpuscular Hemoglobin Concent 31.1 Red Cell Distribution Width 16.2 Platelet Count 206 Mean Platelet Volume 10.1 Neutrophils (%) (Auto) 83.6 Lymphocytes (%) (Auto) 10.8 Monocytes (%) (Auto) 4.6 Eosinophils (%) (Auto) 0.2 Basophils (%) (Auto) 0.8 Neutrophils # (Auto) 31.4 Lymphocytes # (Auto) 4.1 Monocytes # (Auto) 1.7 Eosinophils # (Auto) 0.1 Basophils # (Auto) 0.3 CBC Comment AUTO DIFF Differential Total Cells Counted 100 Neutrophils % (Manual) 83 Band Neutrophils % 2 Lymphocytes % 10 Monocytes % 3 Neutrophils # (Manual) 32.6 Myelocytes 2 Nucleated Red Blood Cells 1 Differential Comment FINAL DIFF MANUAL Platelet Estimate NORMAL Platelet Morphology Comment NORMAL Fabian Cells 1+ Keratocytes 1+ Prothrombin Time 20.7 Prothromb Time International Ratio 1.8 Activated Partial Thromboplast Time 29.6 Fibrinogen 59 Urine Color YELLOW Urine Turbidity HAZY Urine pH 5.0 Urine Specific [place] 1.018 Urine Protein 30 Urine Glucose (UA) 70 Urine Ketones NEG Urine Occult Blood MOD Urine Nitrite NEG Urine Bilirubin NEG Urine Urobilinogen LESS THAN 2.0 Urine Leukocyte Esterase NEG Urine WBC 1 Urine Amorphous Sediment RARE Urine Bacteria RARE Urine Hyaline Casts 4 Urine Granular Casts 9 Urine Mucus FEW Microscopic Urinalysis Comment CULT NOT INDICATED Urine Eosinophils NONE SEEN Urine Random Creatinine 123.5 Urine Random Sodium 7 Lactic Acid Level 13.7 9.0 Blood Gas Puncture Site LT RADIAL Blood Gas Patient Temperature 98.6 Blood Gas HCO3 11 Blood Gas Base Excess -15.7 Blood Gas Oxygen Saturation 97 Arterial Blood pH 7.19 Arterial Blood Partial Pressure CO2 30 Arterial Blood Partial Pressure O2 184 Arterial Blood Oxygen Content 13.0 Arterial Blood Carboxyhemoglobin 0.9 Arterial Blood Methemoglobin 0.4 Blood Gas Hemoglobin 9.2 Oxygen Delivery Device VENTILATOR Blood Gas Ventilator Setting AC 14/550/5+ Blood Gas Inspired Oxygen 100 Blood Urea Nitrogen 35 Creatinine 2.25 Random Glucose 105 Total Protein 6.8 Albumin 1.8 Calcium Level 7.3 Alkaline Phosphatase 139 Aspartate Amino Transf (AST/SGOT) 1455 Alanine Aminotransferase (ALT/SGPT) 493 Total Bilirubin 0.9 Sodium Level 127 Potassium Level 5.6 Chloride Level 93 Carbon Dioxide Level 16.0 Anion Gap 18 Estimat Glomerular Filtration Rate 33 Protein Corrected Calcium 7.5 Troponin I 5.29 Salicylates Level LESS THAN 1.7 Test 04/23/17 20:30 04/23/17 22:15 04/24/17 04:00 04/24/17 05:20 Lactic Acid Level 7.2 12.7 Urine Opiates Screen POS Urine Barbiturates Screen NEG Urine Amphetamines Screen POS Urine Benzodiazepines Screen POS Urine Cocaine Screen NEG Urine Cannabinoids Screen NEG Potassium Level 5.4 6.3 Phosphorus Level 8.2 9.0 Magnesium Level 2.6 2.4 Ammonia 19 Total Creatine Kinase 1689 Creatine Kinase MB 15.7 Creatine Kinase MB % 0.9 Troponin I 4.60 4.28 Amylase Level 136 Lipase 181 Thyroid Stimulating Hormone 3rd Gen 0.854 Acetaminophen Level LESS THAN 2.0 Ethyl Alcohol Level LESS THAN 3 B-Hydroxybutyrate 0.16 White Blood Count 23.3 Red Blood Count 3.01 Hemoglobin 8.0 Hematocrit 24.7 Mean Corpuscular Volume 82.1 Mean Corpuscular Hemoglobin 26.5 Mean Corpuscular Hemoglobin Concent 32.3 Red Cell Distribution Width 16.0 Platelet Count 135 Mean Platelet Volume 9.6 Neutrophils (%) (Auto) 86.2 Lymphocytes (%) (Auto) 7.6 Monocytes (%) (Auto) 5.9 Eosinophils (%) (Auto) 0.0 Basophils (%) (Auto) 0.3 Neutrophils # (Auto) 20.0 Lymphocytes # (Auto) 1.8 Monocytes # (Auto) 1.4 Eosinophils # (Auto) 0.0 Basophils # (Auto) 0.1 CBC Comment AUTO DIFF Differential Total Cells Counted 100 Neutrophils % (Manual) 88 Band Neutrophils % 2 Lymphocytes % 3 Monocytes % 4 Neutrophils # (Manual) 21.7 Myelocytes 3 Differential Comment FINAL DIFF MANUAL Platelet Estimate LOW Platelet Morphology Comment NORMAL Ovalocytes 1+ [place] Cells 1+ Prothrombin Time 27.1 Prothromb Time International Ratio 2.4 Activated Partial Thromboplast Time 38.0 Blood Urea Nitrogen 47 Creatinine 3.09 Random Glucose 78 Total Protein 5.0 Albumin 1.2 Calcium Level 5.7 Alkaline Phosphatase 103 Aspartate Amino Transf (AST/SGOT) 5358 Alanine Aminotransferase (ALT/SGPT) 1668 Total Bilirubin 1.3 Sodium Level 134 Chloride Level 99 Carbon Dioxide Level 14.6 Anion Gap 20 Estimat Glomerular Filtration Rate 23 Protein Corrected Calcium 6.6 Blood Gas Puncture Site RT FEMORAL Blood Gas Patient Temperature 98.6 Blood Gas HCO3 8 Blood Gas Base Excess -18.6 Blood Gas Oxygen Saturation 95 Arterial Blood pH 7.21 Arterial Blood Partial Pressure CO2 21 Arterial Blood Partial Pressure O2 134 Arterial Blood Oxygen Content 11.5 Arterial Blood Carboxyhemoglobin 0.4 Arterial Blood Methemoglobin 1.2 Blood Gas Hemoglobin 8.4 Oxygen Delivery Device VENTILATOR Blood Gas Ventilator Setting PRVC/AC Blood Gas Inspired Oxygen 40 Test 04/24/17 09:30 Potassium Level 5.7 Date/Time Source Procedure Growth Status 04/23/17 15:50 Blood Peripheral Aerobic Blood Culture - Preliminary Gram Positive Cocci Resulted 04/23/17 15:50 Anaerobic Blood Culture - Preliminary Gram Positive Cocci Resulted 04/23/17 22:20 Sputum Endotracheal Gram Stain - Final Resulted 04/23/17 22:20 Sputum Endotracheal Sputum Culture Pending Resulted 04/23/17 20:30 Urine Catheterized Urine Legionella Antigen Pending Received 04/23/17 20:30 Urine Catheterized Urine Streptococcus pneumoniae Antigen (M Pending Received Result Diagram: 04/24/17 0400 04/24/17 0930 Imaging Last Impressions Lower Extremity Ultrasound 04/23/17 0000 Signed Impressions: Service Date/Time: Sunday, April 23, 2017 16:26 - CONCLUSION: No DVT is identified within either lower extremity. Lucian Cai MD Head CT 04/23/17 0000 Signed Impressions: Service Date/Time: Sunday, April 23, 2017 21:50 - CONCLUSION: Abnormal area of low density in the left parietal high convexity primarily in the subcortical white matter. It most likely represents an area of vasogenic edema but cytotoxic edema associated with ischemia could have a similar appearance. When patient condition permits consider further characterization with MRI. Lucian Cai MD Chest X-Ray 04/23/17 Signed Impressions: Service Date/Time: Sunday, April 23, 2017 15:43 - CONCLUSION: 1. Bihilar airspace infiltrates which can be seen in pulmonary edema, pneumonia ( especially aspiration) or some inhalation injuries. 2. Endotracheal tube appropriately positioned above the ayaz. Nasogastric tube enters the stomach and extends off the inferior aspect of the image Nam Amaya MD Chest CT 04/23/17 0000 Signed Impressions: Service Date/Time: Sunday, April 23, 2017 21:54 - CONCLUSION: 1. Severe airspace consolidation bilaterally in a distribution favoring severe pulmonary edema as the etiology. 2. Moderate size right and small left pleural effusion. Lucian Cai MD Abdomen/Pelvis CT 04/23/17 0000 Signed Impressions: Service Date/Time: Sunday, April 23, 2017 21:54 - CONCLUSION: 1. No acute finding is identified within the abdomen or pelvis on this noncontrast examination. 2. There are expected changes associated with the right femoral venous line including surrounding inflammation and mild hemorrhage. 3. Mild hepatomegaly. 4. Please refer to chest CT report for description of the supradiaphragmatic findings. Lucian Cai MD Assessment and Plan Assessment and Plan Septic Shock with Multi Organ dysfunction syndrome (MODS) Gram positive bacteremia with Endocarditis of aortic valve. Pulm septic emboli, aspiration Pneumonia. Cerebral, Cerebellar septic emboli with some midline shift noted. Left Cerebral septic emboli could be area of cerebritis and abscess. 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 Acute renal failure:sepsis may end up needing HD as is oliguric with high K. Acute metabolic encephalopathy: sepsis, meningitis, infarcts. Elevated liver enzymes: Shock liver, sepsis. Elevated lactic acid. Recs: DC Vanco IV (due to ARF oliguric) Start Teflaro IV (for possible MRSA endocarditis pending cultures) Continue Cefepime IV (for empiric PSAE coverage) Continue flagyl change to oral (for empiric aspiration PNA coverage) repeat blood cultures stat HIV antibody screen Reviewed imaging with Prognosis guarded. At risk for seizures as patient on 2 beta lactams and significant neurological findings. d/w . Critical thinking and decision making. Case d.w Patients father in detail in presence of . Reviewed verigene testing info: AEROBIC BLOOD CULTURE Preliminary 04/24/17 CULTURE GROWING ENTEROCOCCUS FAECALIS BY VERIGENE NUCLEIC ACID TEST. SUSCEPTIBILITY TO FOLLOW. NEGATIVE FOR THE FOLLOWING ORGANISMS BY NUCLEIC ACID TEST: STAPHYLOCOCCUS SPECIES STAPH AUREUS STAPH EPIDERMIDIS STAPH LUGDUNENSIS STREP SPECIES STREP PNEUMONIAE STREP PYOGENES STREP AGALACTIAE STREP ANGINOSUS GRP ENTEROCOCCUS FAECIUM LISTERIA SPECIES AEROBIC BLOOD CULTURE Preliminary (changed) 04/24/17 CULTURE GROWING GRAM POSITIVE COCCI IN PAIRS AND CHAINS ID AND SUSCEPTIBILITY TO FOLLOW Results called with read-back confirmation to GONZALEZ JIM by CORINA DICKINSON at 0921 ANAEROBIC BLOOD CULTURE Preliminary 04/24/17 CULTURE GROWING GRAM POSITIVE COCCI IN PAIRS AND CHAINS ID AND SUSCEPTIBILITY TO FOLLOW Results called with read-back confirmation to GONZALEZ JIM by CORINA DICKINSON at 0921 d/w Clinical pharmacist: possible polymicrobial infection empiric coverage for PSAE, MRSA, VRE, E.faecalis and anaerobes needed. Start Dapto IV (dosed at 10 mg/kg IV every 24 hours) Check CK levels. ASP criteria: possible polymicrobial infection empiric coverage for PSAE, MRSA, VRE, E.faecalis and anaerobes needed.. Platelets decreasing cannot use Zyvox IV Continue Cefepime IV Continue Teflaro IV Continue Flagyl oral francisco Pringle Clinical ID pharmacist. francisco Melendez in IV room. Kristi Red MD Apr 24, 2017 10:16
[2017-04-24] MEDS: fentaNYL DRIP 250 ML IV PRN ×2 (11:08→11:20)
[2017-04-24] MEDS: MIDAZOLAM 100 MG/100 ML INJ 100 ML IV PRN (11:08)
--- NOTE | 2017-04-24 11:11 | RADRPT ---
EXAM DATE/TIME: 04/24/2017 10:27 [facility] COMPARISON: CT BRAIN W/O CONTRAST, April 23, 2017, 21:50. INDICATIONS : Unresponsive. MEDICAL HISTORY : IVDA. TB. SURGICAL HISTORY : None. ENCOUNTER: Initial ACUITY: 2 day PAIN SCORE: 0/10 LOCATION: cranial TECHNIQUE: Multiplanar, multisequence MRI of the brain was performed without contrast. FINDINGS: Loss of normal signal flow void is identified in the right carotid siphon characteristic of occlusion . This has resulted in extensive restricted diffusion throughout the right cerebral hemisphere with s ome sparing of the parasagittal frontal and occipital lobes. Susceptibility weighted imaging demonstr ates venous engorgement and stasis throughout the area of restricted diffusion characteristic of a va scular occlusive process. Restricted diffusion is also evident in the left parietal lobe which contains punctate areas of susce ptibility indicative of petechial hemorrhage. Small areas of restricted diffusion are identified in the left frontal white matter involving both oreilly bcortical and deep white matter tracks. Focal areas of restricted diffusion are also seen in the left cerebellar hemisphere. Mild mass effect is seen throughout the right cerebral hemisphere with mild right to left shift of 4 mm. CONCLUSION: 1. 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 2. Left parietal lobe infarct containing petechial hemorrhage 3. Scattered deep white matter infarcts in the left frontal lobe. 4. Peripheral left cerebellar infarct 5. Right cerebral mass effect with mild shift. Jd Covington MD on April 24, 2017 at 10:56 Board Certified Radiologist. This report was verified electronically.
--- NOTE | 2017-04-24 12:22 | HHI.CCPN ---
Subjective Remarks/Hospital Course This is a 36-year-old male. He admission 04/23/2017. Past mesentery history is defined as prior IV drug use, Mycobacterium diagnosis untreated and bilateral lower extremity cellulitis. Today he presents to [facility] ED in acute hypercapnic hypoxic respiratory distress. According to records, prior to intubation patient was on nonrebreather with saturations in the mid 80s. 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 Pt has been having abdominal pain as well with fever, vomiting. Has been having bilateral lower extremity edema for 2 weeks. Pt has been on Bactrim and clindamycin for a foot infection. Patient was intubated with a 7.5 ET tube after receiving 20 mg etomidate 100 mg succinylcholine. Patient has significant respiratory and anion gap metabolic acidosis on his ABG. Chest x-ray showed bilateral upper lobe infiltrates versus pneumonia versus edema versus other. Ultrasound bilateral lower extremities revealed no DVT. CT thorax currently ordered along with head, abdomen and pelvis. Patient had a significant leukocytosis of 37,000. Anemia with a hemoglobin 10. Also pertinent, Patient elevated creatinine around 2.2. Elevated potassium 5.7. Elevated transaminases. With an AST in the 1400s ALT in the 500s. Low sodium. Elevated troponin. EKG and T echocardiogram is currently pending. Patient did received piperacillin/tazobactam and vancomycin in the ED. Subjective 04/24: Noted imaging overnight. MRI brain today revealed right ICA occlusion, right parietal lobe mass/abscess with hemorrhage, right frontal locate right cerebellar and right triple masses noted. There is a 4 mm shift right to left due to edema. Patient also likely has valvular endocarditis, lactic acidosis, acute kidney injury currently oliguric and acute liver failure. 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 Discussed with Dr. Gautam. Objective Vital Signs Date Time Temp Pulse Resp B/P (MAP) Pulse Ox O2 Delivery O2 Flow Rate FiO2 04/24/17 10:00 112 112/55 (74) 91 134/39 (70) 04/24/17 09:00 25 04/24/17 08:31 40 04/24/17 08:00 99.2 04/23/17 18:05 Ventilator Intake and Output 04/24/17 04/24/17 04/25/17 08:00 16:00 00:00 Intake Total 2697 ml 100 ml Output Total 859 ml 20 ml Balance 1838 ml 80 ml Result Diagram: 04/24/17 0400 04/24/17 0930 Other Results Microbiology Date/Time Source Procedure Growth Status 04/24/17 11:51 Blood Peripheral Aerobic Blood Culture Pending Received 04/24/17 11:51 Blood Peripheral Anaerobic Blood Culture Pending Received 04/23/17 22:20 Sputum Endotracheal Gram Stain - Final Resulted 04/23/17 22:20 Sputum Endotracheal Sputum Culture Pending Resulted 04/23/17 20:30 Urine Catheterized Urine Legionella Antigen - Final PRESUMPTIVE NEGATIVE FOR LEGIONELLA P... Complete 04/23/17 20:30 Urine Catheterized Urine Streptococcus pneumoniae Antigen (M - Final PRESUMPTIVE NEGATIVE FOR STREPTOCOCCU... Complete Imaging Last Impressions Lower Extremity Ultrasound 04/23/17 0000 Signed Impressions: Service Date/Time: Sunday, April 23, 2017 16:26 - CONCLUSION: No DVT is identified within either lower extremity. Lucian Cai MD Head CT 04/23/17 0000 Signed Impressions: Service Date/Time: Sunday, April 23, 2017 21:50 - CONCLUSION: Abnormal area of low density in the left parietal high convexity primarily in the subcortical white matter. It most likely represents an area of vasogenic edema but cytotoxic edema associated with ischemia could have a similar appearance. When patient condition permits consider further characterization with MRI. Lucian Cai MD Chest X-Ray 04/23/17 0000 Signed Impressions: Service Date/Time: Sunday, April 23, 2017 15:43 - CONCLUSION: 1. Bihilar airspace infiltrates which can be seen in pulmonary edema, pneumonia ( especially aspiration) or some inhalation injuries. 2. Endotracheal tube appropriately positioned above the ayaz. Nasogastric tube enters the stomach and extends off the inferior aspect of the image Nam Amaya MD Chest CT 04/23/17 0000 Signed Impressions: Service Date/Time: Sunday, April 23, 2017 21:54 - CONCLUSION: 1. Severe airspace consolidation bilaterally in a distribution favoring severe pulmonary edema as the etiology. 2. Moderate size right and small left pleural effusion. Lucian Cai MD Abdomen/Pelvis CT 04/23/17 0000 Signed Impressions: Service Date/Time: Sunday, April 23, 2017 21:54 - CONCLUSION: 1. No acute finding is identified within the abdomen or pelvis on this noncontrast examination. 2. There are expected changes associated with the right femoral venous line including surrounding inflammation and mild hemorrhage. 3. Mild hepatomegaly. 4. Please refer to chest CT report for description of the supradiaphragmatic findings. Lucian Cai MD Objective Remarks GENERAL: 36-year-old male, critically ill currently orotracheally intubated SKIN: Cool left lower extremity. Signs of septic emboli with petechial hemorrhage bilateral feet left greater than right. HEAD: Atraumatic. Normocephalic. EYES: Pupils equal and round about 2 mm bilaterally and reactive. No scleral icterus. No injection or drainage. ENT: No nasal bleeding or discharge. Mucous membranes pink and moist. Oropharynx without erythema NECK: Trachea midline. No JVD. CARDIOVASCULAR: Tachycardic, RR. S1, S2. No S4. I do not appreciate a murmur likely due to rhonchorous breath sounds RESPIRATORY: Positive accessory muscle use. Rhonchorous breath sounds are appreciated throughout lung. These are appreciated anterior and posteriorly. GASTROINTESTINAL: Abdomen soft, non-tender, nondistended. Hypoactive bowel sounds appreciated MUSCULOSKELETAL: Extremities with 1+ bilateral lower extremity below the knee edema. No obvious deformities. Noted septic emboli changes bilateral lower extremities/livedo reticularis NEUROLOGICAL: Patient is currently orotracheally intubated on propofol, midazolam and fentanyl drips. Positive gag. Positive corneal reflex. Currently not withdrawing to pain to deep noxious stimuli A/P Assessment and Plan Neuro/Psych: Acute toxic metabolic encephalopathy Right ICA occlusion Left parietal lobe mass Patient is currently on propofol at 30 mcg/kg per minute/fentanyl drip at 150 g an hour and midazolam drips at 6 mg an hour for sedation/analgesia while intubated Goal of RASS -[address] brain revealed cerebral edema in the left parietal lobe. MRI brain revealed right ICA occlusion with a 4 mm shift right to left, left parietal lobe hemorrhage/abscess/infarct with changes likely embolic infarcts in the left frontal lobe and left cerebellar and right cerebral regions. Neurosurgery consulted. Will evaluate for possible intervention if goals of care to be aggressive We'll start on levetiracetam 250 mg IV twice a day.. There are no optimal medications for seizure prophylaxis with hepatic and renal failure Urine drug screen, revealed positive amphetamines, opiates and benzodiazepines however on fentanyl drip and Versed drip when drawn. Started on thiamine, folate and multivitamin with possible prior history of EtOH use. 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 Official results pending. Dr. Scwhartz today Resp: Acute hypoxic hypercapnic respiratory failure PRVC 16/500/06/17/39 Ventilator bundle Albuterol/ipratropium aerosols every 6 hours with albuterol aerosols every 2 hours as needed for dyspnea Spontaneous breathing trials when clinically indicated CT thorax revealed bilateral upper lobe greater than lower lobe infiltrates with groundglass opacities. Reorder chest x-ray/ABG in a.m. 04/25 GI: Elevated transaminases Hypoalbuminemia Patient is currently nothing by mouth. OG tube to LIWS Lansoprazole for GI prophylaxis Docusate sodium/senna 1 tablet twice a day for bowel regimen Follow-up on CT abdomen/pelvis revealed a liver 21.3 cm. Otherwise no acute intra-abdominal findings : Hutchins catheter has been placed for accurate I's and O's in a critically ill patient Endo: Sliding-scale insulin with Accu-Cheks to maintain euglycemia Novulon r every 6 hours/low regimen TSH was normal Renal: Acute kidney injury currently oliguric Urine sodium was 7. Urine Creatinine elevated 120. Eosinophils negative. Status post 5 L crystalloid in the ED. CT abdomen/pelvis no hydronephrosis Monitor urine output with Hutchins catheter Accurate I's and O's Nephrology consulted for possible CVVH And is currently 3.0 Heme: Leukocytosis Normocytic anemia Elevated INR Low fibrinogen Likely all secondary to severe sepsis/hepatic failure Follow CBC daily. Follow trends Vitamin K 10 milligrams IV 1 now. Kcentra 2500 units now and cryoprecipitate 1 now. ID: History of Mycobacterium exposure? Severe sepsis with history of IV drug use Gram-positive cocci bacteremia Patient is currently in vancomycin, cefepime, metronidazole and azithromycin Received 1 dose of vancomycin and piperacillin/tazobactam in ED Await ID consult for antibiotic changes Blood cultures 2, urine, sputum, influenza and urine pneumococcal and Legionella antigens all pending 2-D echocardiogram revealed likely occurs. Official Results pending MSK: PT evaluate and treat Dopplers bilateral extremity is negative for DVT these are likely embolic from valvular FEN: Hyperkalemia Hyperphosphatemia Hypocalcemia 1 g Calcium gluconate, 10 units insulin/one ampule D50 and Kayexalate 1. Recheck potassium with EKG 3 hours. Continue bicarbonate drip as above Access - Utilize right femoral CVL day 2 placed in ED. Prophylaxis -GI -lansoprazole - DVT - SCD/holding pharmacological prophylaxis elevated INR of 1.8 Critical Care: The total critical care time was 35 minutes. Time to perform other separately billable procedures was not included in the critical care time. Discussed with Dr. Gautam at length with Dr. Red. Discussed with Antony Bridges MD Apr 24, 2017 12:22
[2017-04-24] MEDS: VASOPRESSIN INJ 40 UNITS in DEXTROSE 5% IN WATER 100ML INJ 98 ML IV SCH ×2 (12:26)
--- NOTE | 2017-04-24 12:52 | EKG ---
Date Performed: 04/23/2017 Time Performed: 20:11:01 PTAGE: 36 years EKG: SINUS TACHYCARDIA POSSIBLE LEFT ATRIAL ENLARGEMENT INDETERMINATE AXIS INCOMPLETE RIGHT BUND LE BRANCH BLOCK LEFT ANTERIOR FASCICULAR BLOCK MODERATE ST DEPRESSION ABNORMAL ECG NO PREVIOUS TRACING DOCTOR: Callum Mcgowan Interpretating Date/Time 04/24/2017 12:50:46
[2017-04-24] MEDS ORDERED: levETIRAcetam INJ 250 MG in SODIUM CHLORIDE 0.9% INJ 100 ML IV SCH (13:00)
[2017-04-24 13:08] LABS: BLOOD GAS BASE EXCESS -9.2 mmol/L (-2-2); BLOOD GAS HCO3 15 mmol/L (22-26); BLOOD GAS METHEMOGLOBIN 1.1 % (0-2); BLOOD GAS O2 HGB SATURATION 92 % (90-100); BLOOD GAS OXYGEN CONTENT 11.6 Vol % (12.0-20.0); BLOOD GAS PCO2 27 mmHg (38-42); BLOOD GAS PO2 81 mmHg (61-120); BLOOD GAS TOTAL HGB 8.9 G/DL (12.0-16.0); CRITICAL VALUE YES; OXYGEN DEVICE VENTILATOR; TEMP CORR TO 98.6
[2017-04-24 13:09] LABS: DRAW SITE ART LINE; FIO2 40 %; STAT NO; VENT SETTINGS PRVC/AC 550/20
--- NOTE | 2017-04-24 13:15 | PD.CONS ---
HPI Consult Requested By Primary Care Physician No Primary Care Physician History of Present Illness Consulted to see this 36-year-old gentleman with history of IVDA who was admitted with sepsis and respiratory failure who is now unresponsive. CT scan and subsequent MRI of the brain performed on admission and I reviewed the studies. MRI examination shows occluded right internal carotid artery with developing massive right hemisphere infarct. Multiple left-sided emboliolic/ ischemic lesions as well as cerebellar ischemic lesions. Chest x-ray showing bilateral upper lobe infiltrates. Patient developing metabolic acidosis and multisystem organ failure with severe hepatic and renal chemistry abnormalities and coagulopathy. Past Family Social History Allergies: Coded Allergies: No Known Allergies (Unverified , 04/23/17) Past Medical History IV drug use No prior known h/o endocarditis or other infections. Reported Medications Bactrim (Sulfamethoxazole-Trimethoprim) 400-80 Mg Tab 1 Tab PO BID Clindamycin (Clindamycin HCl) 300 Mg Cap 300 Mg PO Q6H Social History IV drug abuse with opiates and amphetamines. No alcohol. No smoking. Physical Exam Vital Signs Vital Signs Date Time Temp Pulse Resp B/P (MAP) Pulse Ox O2 Delivery O2 Flow Rate FiO2 04/24/17 12:14 94 40 04/24/17 12:11 100.2 109 27 115/34 95 04/24/17 10:00 112 112/55 (74) 91 134/39 (70) 04/24/17 10:00 112 04/24/17 09:00 113 25 119/56 (77) 91 143/39 (73) 04/24/17 08:31 99 40 04/24/17 08:00 115 04/24/17 08:00 99.2 115 26 124/60 (81) 93 145/37 (73) 04/24/17 08:00 40 04/24/17 07:40 113 124/34 04/24/17 07:30 116 130/36 04/24/17 07:15 109 110/31 04/24/17 06:17 108 81/46 04/24/17 06:00 104 04/24/17 04:00 99.8 107 31 76/36 (49) 100 04/24/17 04:00 50 04/24/17 04:00 107 04/24/17 03:56 100 40 04/24/17 02:00 106 04/24/17 00:45 100 40 04/24/17 00:00 99.9 108 24 88/50 (63) 99 04/24/17 00:00 50 04/24/17 00:00 108 04/23/17 22:32 100 100 04/23/17 22:00 109 04/23/17 21:25 100 40 04/23/17 20:00 109 04/23/17 20:00 50 04/23/17 20:00 99.3 109 25 97/49 (65) 100 04/23/17 19:04 04/23/17 19:00 107 33 96/56 (69) 99 04/23/17 18:33 100 40 04/23/17 18:20 99.9 112 34 108/51 (70) 99 04/23/17 18:20 112 04/23/17 18:20 50 04/23/17 18:05 125 134/74 (94) 100 Ventilator 04/23/17 18:00 100 100 04/23/17 17:34 121 131/63 (85) 100 Ventilator 04/23/17 17:22 100 100 04/23/17 17:05 126 133/60 (84) 97 Ventilator 04/23/17 16:27 124 137/62 (87) 100 Ventilator 04/23/17 16:24 100 100 04/23/17 16:13 129 144/65 (91) 100 Ventilator 04/23/17 16:05 82 100 Ventilator 04/23/17 15:54 93 100 04/23/17 15:36 124 166/75 (105) 97 Ventilator 04/23/17 15:28 125 161/68 (99) 92 Ventilator 04/23/17 15:27 100 04/23/17 15:19 98.0 134 175/74 (107) 85 Physical Exam Gen.: Well-developed well-nourished male intubated. I have stopped his sedation for this examination. Neurological: Patient is unresponsive to deep painful stimulation. Pupils are 2 mm with questionable reactivity. Negative corneal sign. Negative doll's sign. Negative cough and gag reflex on manipulation of the T-tube. Patient is breathing over the ventilator settings. Laboratory Laboratory Tests Test 04/23/17 15:45 04/23/17 16:13 04/23/17 17:20 04/23/17 17:31 White Blood Count 37.5 Red Blood Count 3.83 Hemoglobin 9.9 Hematocrit 31.8 Mean Corpuscular Volume 83.2 Mean Corpuscular Hemoglobin 25.9 Mean Corpuscular Hemoglobin Concent 31.1 Red Cell Distribution Width 16.2 Platelet Count 206 Mean Platelet Volume 10.1 Neutrophils (%) (Auto) 83.6 Lymphocytes (%) (Auto) 10.8 Monocytes (%) (Auto) 4.6 Eosinophils (%) (Auto) 0.2 Basophils (%) (Auto) 0.8 Neutrophils # (Auto) 31.4 Lymphocytes # (Auto) 4.1 Monocytes # (Auto) 1.7 Eosinophils # (Auto) 0.1 Basophils # (Auto) 0.3 CBC Comment AUTO DIFF Differential Total Cells Counted 100 Neutrophils % (Manual) 83 Band Neutrophils % 2 Lymphocytes % 10 Monocytes % 3 Neutrophils # (Manual) 32.6 Myelocytes 2 Nucleated Red Blood Cells 1 Differential Comment FINAL DIFF MANUAL Platelet Estimate NORMAL Platelet Morphology Comment NORMAL [place] Cells 1+ Keratocytes 1+ Prothrombin Time 20.7 Prothromb Time International Ratio 1.8 Activated Partial Thromboplast Time 29.6 Fibrinogen 59 Urine Color YELLOW Urine Turbidity HAZY Urine pH 5.0 Urine Specific [place] 1.018 Urine Protein 30 Urine Glucose (UA) 70 Urine Ketones NEG Urine Occult Blood MOD Urine Nitrite NEG Urine Bilirubin NEG Urine Urobilinogen LESS THAN 2.0 Urine Leukocyte Esterase NEG Urine WBC 1 Urine Amorphous Sediment RARE Urine Bacteria RARE Urine Hyaline Casts 4 Urine Granular Casts 9 Urine Mucus FEW Microscopic Urinalysis Comment CULT NOT INDICATED Urine Eosinophils NONE SEEN Urine Random Creatinine 123.5 Urine Random Sodium 7 Lactic Acid Level 13.7 9.0 Blood Gas Puncture Site LT RADIAL Blood Gas Patient Temperature 98.6 Blood Gas HCO3 11 Blood Gas Base Excess -15.7 Blood Gas Oxygen Saturation 97 Arterial Blood pH 7.19 Arterial Blood Partial Pressure CO2 30 Arterial Blood Partial Pressure O2 184 Arterial Blood Oxygen Content 13.0 Arterial Blood Carboxyhemoglobin 0.9 Arterial Blood Methemoglobin 0.4 Blood Gas Hemoglobin 9.2 Oxygen Delivery Device VENTILATOR Blood Gas Ventilator Setting AC 14/550/5+ Blood Gas Inspired Oxygen 100 Blood Urea Nitrogen 35 Creatinine 2.25 Random Glucose 105 Total Protein 6.8 Albumin 1.8 Calcium Level 7.3 Alkaline Phosphatase 139 Aspartate Amino Transf (AST/SGOT) 1455 Alanine Aminotransferase (ALT/SGPT) 493 Total Bilirubin 0.9 Sodium Level 127 Potassium Level 5.6 Chloride Level 93 Carbon Dioxide Level 16.0 Anion Gap 18 Estimat Glomerular Filtration Rate 33 Protein Corrected Calcium 7.5 Troponin I 5.29 Salicylates Level LESS THAN 1.7 Test 04/23/17 20:30 04/23/17 22:15 04/24/17 04:00 04/24/17 05:20 Lactic Acid Level 7.2 12.7 Urine Opiates Screen POS Urine Barbiturates Screen NEG Urine Amphetamines Screen POS Urine Benzodiazepines Screen POS Urine Cocaine Screen NEG Urine Cannabinoids Screen NEG Potassium Level 5.4 6.3 Phosphorus Level 8.2 9.0 Magnesium Level 2.6 2.4 Ammonia 19 Total Creatine Kinase 1689 Creatine Kinase MB 15.7 Creatine Kinase MB % 0.9 Troponin I 4.60 4.28 Amylase Level 136 Lipase 181 Thyroid Stimulating Hormone 3rd Gen 0.854 Acetaminophen Level LESS THAN 2.0 Ethyl Alcohol Level LESS THAN 3 B-Hydroxybutyrate 0.16 White Blood Count 23.3 Red Blood Count 3.01 Hemoglobin 8.0 Hematocrit 24.7 Mean Corpuscular Volume 82.1 Mean Corpuscular Hemoglobin 26.5 Mean Corpuscular Hemoglobin Concent 32.3 Red Cell Distribution Width 16.0 Platelet Count 135 Mean Platelet Volume 9.6 Neutrophils (%) (Auto) 86.2 Lymphocytes (%) (Auto) 7.6 Monocytes (%) (Auto) 5.9 Eosinophils (%) (Auto) 0.0 Basophils (%) (Auto) 0.3 Neutrophils # (Auto) 20.0 Lymphocytes # (Auto) 1.8 Monocytes # (Auto) 1.4 Eosinophils # (Auto) 0.0 Basophils # (Auto) 0.1 CBC Comment AUTO DIFF Differential Total Cells Counted 100 Neutrophils % (Manual) 88 Band Neutrophils % 2 Lymphocytes % 3 Monocytes % 4 Neutrophils # (Manual) 21.7 Myelocytes 3 Differential Comment FINAL DIFF MANUAL Platelet Estimate LOW Platelet Morphology Comment NORMAL [place]ocytes 1+ [place] Cells 1+ Prothrombin Time 27.1 Prothromb Time International Ratio 2.4 Activated Partial Thromboplast Time 38.0 Blood Urea Nitrogen 47 Creatinine 3.09 Random Glucose 78 Total Protein 5.0 Albumin 1.2 Calcium Level 5.7 Alkaline Phosphatase 103 Aspartate Amino Transf (AST/SGOT) 5358 Alanine Aminotransferase (ALT/SGPT) 1668 Total Bilirubin 1.3 Sodium Level 134 Chloride Level 99 Carbon Dioxide Level 14.6 Anion Gap 20 Estimat Glomerular Filtration Rate 23 Protein Corrected Calcium 6.6 Blood Gas Puncture Site RT FEMORAL Blood Gas Patient Temperature 98.6 Blood Gas HCO3 8 Blood Gas Base Excess -18.6 Blood Gas Oxygen Saturation 95 Arterial Blood pH 7.21 Arterial Blood Partial Pressure CO2 21 Arterial Blood Partial Pressure O2 134 Arterial Blood Oxygen Content 11.5 Arterial Blood Carboxyhemoglobin 0.4 Arterial Blood Methemoglobin 1.2 Blood Gas Hemoglobin 8.4 Oxygen Delivery Device VENTILATOR Blood Gas Ventilator Setting PRVC/AC Blood Gas Inspired Oxygen 40 Test 04/24/17 09:30 04/24/17 13:00 Potassium Level 5.7 Procalcitonin 21.44 Date/Time Source Procedure Growth Status 04/24/17 11:51 Blood Peripheral Aerobic Blood Culture Pending Received 04/24/17 11:51 Blood Peripheral Anaerobic Blood Culture Pending Received 04/23/17 22:20 Sputum Endotracheal Gram Stain - Final Resulted 04/23/17 22:20 Sputum Endotracheal Sputum Culture Pending Resulted 04/23/17 20:30 Urine Catheterized Urine Legionella Antigen - Final PRESUMPTIVE NEGATIVE FOR LEGIONELLA P... Complete 04/23/17 20:30 Urine Catheterized Urine Streptococcus pneumoniae Antigen (M - Final PRESUMPTIVE NEGATIVE FOR STREPTOCOCCU... Complete Result Diagram: 04/24/17 0400 04/24/17 0930 Imaging MRI of the brain was reviewed. Results as stated in history of present illness. There is occlusion of the right carotid artery from the petrous portion distally. Large evolving right hemispheric infarct with 4 mm of midline shift at present. 3 cm left parietal ischemic/hemorrhagic lesion consistent with infarct or developing abscess/cerebritis. Multiple areas in the left cerebral and cerebellar hemisphere consistent with ischemic emboli. Assessment and Plan Assessment and Plan 36-year-old male with history of IVDA and now sepsis and multisystem organ failure. Possible meningitis/encephalitis. Right carotid occlusion with developing large right hemispheric infarct which is likely to be fatal without decompression. With surgical decompression he may survive the infarct but it will likely become hemorrhagic given his coagulopathy and the prognosis for ultimate survival is extremely poor given the multisystem organ failure. Recommendations: I have requested anesthesia consultation for an assessment of operative morbidity and mortality. I discussed the option of decompressive hemicraniectomy with Dr. Figueroa, the patient's father. Given the poor prognosis with or without surgery at this point he is wanting to withhold aggressive neurosurgical treatment. I will continue to follow on the case in the event that there is a change in family decision. Rizwan Arteaga MD Apr 24, 2017 13:15
--- NOTE | 2017-04-24 13:18 | RADRPT ---
EXAM DATE/TIME: 04/24/2017 12:33 [facility] COMPARISON: No previous studies available for comparison. INDICATIONS : Stenosis. MEDICAL HISTORY : Cellulitis. Respiratory distress. Alcohol use. IV drug use. Tobacco use. SURGICAL HISTORY : ET tube. ENCOUNTER: Initial ACUITY: 1 day PAIN SCORE: Nonresponsive. LOCATION: Bilateral neck PEAK SYSTOLIC VELOCITIES (cm/sec): ICA/CCA RATIO: Right: 0.8 Left: 0.8 ICA: Right: 115 Left: 153 CCA: Right: 142 Left: 192 ECA: Right: 170 Left: 89 VERTEBRAL: Right: 92 antegrade Left: 105 antegrade Elevated flow velocities and ICA/CCA ratios have been found to correlate with increased degrees of vessel stenosis, calculated as percentage of diameter relative to a normal segment of distal ICA/CCA FINDINGS: RIGHT CAROTID: No significant stenosis is visualized. However, the ICA waveform show high resistance. LEFT CAROTID: No significant stenosis is visualized. However, the ICA waveform shows high resistance VERTEBRAL ARTERIES: Antegrade flow is seen in both vertebral arteries. MISCELLANEOUS: None. CONCLUSION: 1. No sonographic or Doppler findings of a hemodynamically significant stenosis in the cervical vesse ls. No significant plaquing. 2. However, both internal carotid and vertebral artery waveforms show high resistance. This can be se en with distal occlusion or increased intracranial pressures. CTA of the cervical vessels could be p erformed for further characterization. Nam Amaya MD on April 24, 2017 at 13:12 Board Certified Radiologist. This report was verified electronically.
[2017-04-24] MEDS ORDERED: Custom Consult Pharmacy 1 EA OTHER SCH (13:30)
[2017-04-24 13:33] LABS: APTT (PATIENT) 35.9 SEC (24.3-30.1); INTERNATIONAL NORMALIZED RATIO 2.1 RATIO; PROTHROMBIN TIME - PATIENT 24.1 SEC (9.8-11.6)
[2017-04-24] MEDS ORDERED: SODIUM CHLORIDE 0.9% FLUSH 10 ML FLUSH IV FLUSH PRN ×2 (13:45→14:45)
[2017-04-24] MEDS ORDERED: HEPARIN SODIUM - IV 2,000 UNITS/2 ML VIAL IV FLUSH PRN (13:45)
--- NOTE | 2017-04-24 13:46 | PD.PROCEDR ---
Procedure Note Procedure DATE: 04/24/2017 HEMODIALYSIS LINE PLACEMENT: Right Internal vein. Ultrasound-guided INDICATION: Hemodialysis access CONSENT Informed consent for procedure was obtained from father Lotus. DESCRIPTION OF THE PROCEDURE The patient was placed in supine position. The skin was cleansed with Chloraprep. Additional barrier precautions included large sterile drape, sterile gloves, sterile gown, face mask, and hat. 1 % lidocaine was used for local anesthesia. Under direct ultrasound guidance and on initial attempt, the vein was accessed with an introducer needle. The guide wire was advanced and the tract was dilated 3. Using Seldinger technique a 14 [place] 20 cm Schlon hemodialysis catheter was advanced to a depth of 16 centimeters. The guide wire was removed. All ports had good return of dark venous blood and flushed easily with saline. The central line was secured with 2.0 silk. A sterile dressing with antibiotic disc was applied. ESTIMATED BLOOD LOSS: Minimal COMPLICATIONS: No apparent complications. STAT chest x-ray pending at time of dictation Antony Lemons MD Apr 24, 2017 13:46
--- NOTE | 2017-04-24 14:51 | PD.CONS ---
HPI Service Nephrology Consult Requested By Dr. 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 Review of Systems ROS Limitations: Clinical Condition Past Family Social History Allergies: Coded Allergies: No Known Allergies (Unverified , 04/23/17) Past Medical History History of IVDA Narcotic abuse Past Surgical History Not known Reported Medications Reported Meds & Active Scripts Active Reported Bactrim (Sulfamethoxazole-Trimethoprim) 400-80 Mg Tab 1 Tab PO BID Clindamycin (Clindamycin HCl) 300 Mg Cap 300 Mg PO Q6H Active Ordered Medications Current Medications Medications (Trade) Dose Ordered Sig/Elda Route Start Time Stop Time Status Last Admin (Peridex 0.12% Liq) 15 ml BID@08,20 MT 04/23/17 20:00 04/24/17 07:32 Propofol 100 ml @ 2.55 mls/hr TITRATE PRN IV 04/23/17 17:15 04/24/17 11:07 Midazolam HCl 100 ml @ 2 mls/hr TITRATE PRN IV 04/23/17 17:15 04/24/17 11:08 Fentanyl Citrate 250 ml @ 5 mls/hr TITRATE PRN IV 04/23/17 17:15 04/24/17 11:20 Cefepime HCl 2000 mg/Sodium Chloride 100 ml @ 200 mls/hr Q8H IV 04/23/17 20:00 04/24/17 11:54 (NS Flush) 2 ml UNSCH PRN IV FLUSH 04/23/17 17:30 (NS Flush) 2 ml BID IV FLUSH 04/23/17 21:00 04/24/17 08:48 (Tylenol) 650 mg Q6H PRN PO 04/23/17 17:30 (Prevacid Odt) 30 mg DAILY G-TUBE 04/24/17 09:00 04/24/17 08:48 (Tears Naturale Opth Soln) 1 drop TID EACH EYE 04/23/17 18:00 04/24/17 11:55 (Zofran Inj) 4 mg Q6H PRN IV PUSH 04/23/17 17:30 (Duoneb Neb) 1 ampule Q4HR NEB INH 04/23/17 20:00 04/24/17 12:14 (Albuterol Neb) 2.5 mg Q2HR NEB PRN INH 04/23/17 17:30 Miscellaneous Information 1 Q361D XX 04/23/17 17:30 04/23/17 17:30 (Chlorhexidine 2% Cloth) 3 pack Taper DAILY@04 TOP 04/24/17 04:00 04/20/18 03:59 (Chlorhexidine 2% Cloth) 3 pack UNSCH PRN TOP 04/23/17 17:30 (Lu-Colace) 1 tab BID PO 04/23/17 21:00 04/24/17 08:48 (Milk Of Magnesia Liq) 30 ml Q12H PRN PO 04/23/17 17:30 (Senokot) 17.2 mg Q12H PRN PO 04/23/17 17:30 (Dulcolax Supp) 10 mg DAILY PRN RECTAL 04/23/17 17:30 (Lactulose Liq) 30 ml DAILY PRN PO 04/23/17 17:30 (Chlorhexidine 2% Cloth) 3 pack DAILY@04 TOPICAL 04/24/17 04:00 04/28/17 04:01 (D50w (Vial) Inj) 50 ml UNSCH PRN IV PUSH 04/23/17 18:45 04/24/17 06:22 (Glucagon Inj) 1 mg UNSCH PRN OTHER 04/23/17 18:45 (NovoLIN R SUPPLEMENTAL SCALE) 1 Q6HR SQ 04/24/17 00:00 04/24/17 11:54 Thiamine HCl 100 mg/Sodium Chloride 101 ml @ 101 mls/hr DAILY IV 04/24/17 09:00 04/24/17 08:48 (Theragran) 1 tab DAILY PO 04/24/17 09:00 04/24/17 08:48 (Folate) 1 mg DAILY PO 04/24/17 09:00 04/24/17 08:48 Norepinephrine Bitartrate 250 ml @ 18.75 mls/ hr TITRATE PRN IV 04/24/17 06:00 04/24/17 06:17 Sodium Bicarbonate 150 meq/Sterile Water 1,000 ml @ 150 mls/hr Q6H40M IV 04/24/17 07:00 04/24/17 07:55 Ceftaroline Fosamil 600 mg/ Sodium Chloride 100 ml @ 100 mls/hr Q12H IV 04/24/17 13:00 Vasopressin 40 units/Dextrose 100 ml @ 6 mls/hr [id number] IV 04/24/17 12:26 Levetriacetam 250 mg/Sodium Chloride 102.5 ml @ 420 mls/hr Q12HR IV 04/24/17 13:00 Daptomycin 980 mg/ Sodium Chloride 100 ml @ 200 mls/hr Q48H IV 04/24/17 13:15 UNV Pharmacy Profile Note 0 ml @ 0 mls/hr UNSCH OTHER 04/24/17 13:30 UNV (NS Flush) UNSCH PRN IV FLUSH 04/24/17 13:45 UNV (Heparin Inj) UNSCH PRN IV FLUSH 04/24/17 13:45 UNV (NS Flush) DAILY IV FLUSH 04/25/17 09:00 UNV (NS Flush) UNSCH PRN IV FLUSH 04/24/17 14:45 UNV Family History Not obtained Social History History of IVDA Physical Exam Vital Signs Vital Signs Date Time Temp Pulse Resp B/P (MAP) Pulse Ox O2 Delivery O2 Flow Rate FiO2 04/24/17 13:00 113 120/54 (76) 94 128/41 (70) 04/24/17 12:26 99.0 111 28 111/34 95 04/24/17 12:14 94 40 04/24/17 12:11 100.2 109 27 115/34 95 04/24/17 12:00 40 04/24/17 12:00 100.2 109 112/35 (60) 97 04/24/17 12:00 109 04/24/17 11:00 116 94 04/24/17 10:00 112 112/55 (74) 91 134/39 (70) 04/24/17 10:00 112 04/24/17 09:00 113 25 119/56 (77) 91 143/39 (73) 04/24/17 08:31 99 40 04/24/17 08:00 115 04/24/17 08:00 99.2 115 26 124/60 (81) 93 145/37 (73) 04/24/17 08:00 40 04/24/17 07:40 113 124/34 04/24/17 07:30 116 130/36 04/24/17 07:15 109 110/31 04/24/17 06:17 108 81/46 04/24/17 06:00 104 04/24/17 04:00 99.8 107 31 76/36 (49) 100 04/24/17 04:00 50 04/24/17 04:00 107 04/24/17 03:56 100 40 04/24/17 02:00 106 04/24/17 00:45 100 40 04/24/17 00:00 99.9 108 24 88/50 (63) 99 04/24/17 00:00 50 04/24/17 00:00 108 04/23/17 22:32 100 100 04/23/17 22:00 109 04/23/17 21:25 100 40 04/23/17 20:00 109 04/23/17 20:00 50 04/23/17 20:00 99.3 109 25 97/49 (65) 100 04/23/17 19:04 04/23/17 19:00 107 33 96/56 (69) 99 04/23/17 18:33 100 40 04/23/17 18:20 99.9 112 34 108/51 (70) 99 04/23/17 18:20 112 04/23/17 18:20 50 04/23/17 18:05 125 134/74 (94) 100 Ventilator 04/23/17 18:00 100 100 04/23/17 17:34 121 131/63 (85) 100 Ventilator 04/23/17 17:22 100 100 04/23/17 17:05 126 133/60 (84) 97 Ventilator 04/23/17 16:27 124 137/62 (87) 100 Ventilator 04/23/17 16:24 100 100 04/23/17 16:13 129 144/65 (91) 100 Ventilator 04/23/17 16:05 82 100 Ventilator 04/23/17 15:54 93 100 04/23/17 15:36 124 166/75 (105) 97 Ventilator 04/23/17 15:28 125 161/68 (99) 92 Ventilator 04/23/17 15:27 100 04/23/17 15:19 98.0 134 175/74 (107) 85 Physical Exam GENERAL: Well-nourished, intubated patient. SKIN: Warm and dry. HEAD: Normocephalic. EYES: No scleral icterus. No injection or drainage. NECK: Supple, trachea midline. No JVD or lymphadenopathy. CARDIOVASCULAR: Tachycardia. RESPIRATORY: Breath sounds equal bilaterally. No accessory muscle use. GASTROINTESTINAL: Abdomen soft, non-tender, nondistended. EXTREMITIES: No cyanosis, or edema. Embolic phenomenon seen in the NEUROLOGICAL: Intubated sedated Laboratory Laboratory Tests Test 04/23/17 15:45 04/23/17 16:13 04/23/17 17:20 04/23/17 17:31 White Blood Count 37.5 Red Blood Count 3.83 Hemoglobin 9.9 Hematocrit 31.8 Mean Corpuscular Volume 83.2 Mean Corpuscular Hemoglobin 25.9 Mean Corpuscular Hemoglobin Concent 31.1 Red Cell Distribution Width 16.2 Platelet Count 206 Mean Platelet Volume 10.1 Neutrophils (%) (Auto) 83.6 Lymphocytes (%) (Auto) 10.8 Monocytes (%) (Auto) 4.6 Eosinophils (%) (Auto) 0.2 Basophils (%) (Auto) 0.8 Neutrophils # (Auto) 31.4 Lymphocytes # (Auto) 4.1 Monocytes # (Auto) 1.7 Eosinophils # (Auto) 0.1 Basophils # (Auto) 0.3 CBC Comment AUTO DIFF Differential Total Cells Counted 100 Neutrophils % (Manual) 83 Band Neutrophils % 2 Lymphocytes % 10 Monocytes % 3 Neutrophils # (Manual) 32.6 Myelocytes 2 Nucleated Red Blood Cells 1 Differential Comment FINAL DIFF MANUAL Platelet Estimate NORMAL Platelet Morphology Comment NORMAL Fabian Cells 1+ Keratocytes 1+ Prothrombin Time 20.7 Prothromb Time International Ratio 1.8 Activated Partial Thromboplast Time 29.6 Fibrinogen 59 Urine Color YELLOW Urine Turbidity HAZY Urine pH 5.0 Urine Specific [place] 1.018 Urine Protein 30 Urine Glucose (UA) 70 Urine Ketones NEG Urine Occult Blood MOD Urine Nitrite NEG Urine Bilirubin NEG Urine Urobilinogen LESS THAN 2.0 Urine Leukocyte Esterase NEG Urine WBC 1 Urine Amorphous Sediment RARE Urine Bacteria RARE Urine Hyaline Casts 4 Urine Granular Casts 9 Urine Mucus FEW Microscopic Urinalysis Comment CULT NOT INDICATED Urine Eosinophils NONE SEEN Urine Random Creatinine 123.5 Urine Random Sodium 7 Lactic Acid Level 13.7 9.0 Blood Gas Puncture Site LT RADIAL Blood Gas Patient Temperature 98.6 Blood Gas HCO3 11 Blood Gas Base Excess -15.7 Blood Gas Oxygen Saturation 97 Arterial Blood pH 7.19 Arterial Blood Partial Pressure CO2 30 Arterial Blood Partial Pressure O2 184 Arterial Blood Oxygen Content 13.0 Arterial Blood Carboxyhemoglobin 0.9 Arterial Blood Methemoglobin 0.4 Blood Gas Hemoglobin 9.2 Oxygen Delivery Device VENTILATOR Blood Gas Ventilator Setting AC 14/550/5+ Blood Gas Inspired Oxygen 100 Blood Urea Nitrogen 35 Creatinine 2.25 Random Glucose 105 Total Protein 6.8 Albumin 1.8 Calcium Level 7.3 Alkaline Phosphatase 139 Aspartate Amino Transf (AST/SGOT) 1455 Alanine Aminotransferase (ALT/SGPT) 493 Total Bilirubin 0.9 Sodium Level 127 Potassium Level 5.6 Chloride Level 93 Carbon Dioxide Level 16.0 Anion Gap 18 Estimat Glomerular Filtration Rate 33 Protein Corrected Calcium 7.5 Troponin I 5.29 Salicylates Level LESS THAN 1.7 Test 04/23/17 20:30 04/23/17 22:15 04/24/17 04:00 04/24/17 05:20 Lactic Acid Level 7.2 12.7 Urine Opiates Screen POS Urine Barbiturates Screen NEG Urine Amphetamines Screen POS Urine Benzodiazepines Screen POS Urine Cocaine Screen NEG Urine Cannabinoids Screen NEG Potassium Level 5.4 6.3 Phosphorus Level 8.2 9.0 Magnesium Level 2.6 2.4 Ammonia 19 Total Creatine Kinase 1689 Creatine Kinase MB 15.7 Creatine Kinase MB % 0.9 Troponin I 4.60 4.28 Amylase Level 136 Lipase 181 Thyroid Stimulating Hormone 3rd Gen 0.854 Acetaminophen Level LESS THAN 2.0 Ethyl Alcohol Level LESS THAN 3 B-Hydroxybutyrate 0.16 White Blood Count 23.3 Red Blood Count 3.01 Hemoglobin 8.0 Hematocrit 24.7 Mean Corpuscular Volume 82.1 Mean Corpuscular Hemoglobin 26.5 Mean Corpuscular Hemoglobin Concent 32.3 Red Cell Distribution Width 16.0 Platelet Count 135 Mean Platelet Volume 9.6 Neutrophils (%) (Auto) 86.2 Lymphocytes (%) (Auto) 7.6 Monocytes (%) (Auto) 5.9 Eosinophils (%) (Auto) 0.0 Basophils (%) (Auto) 0.3 Neutrophils # (Auto) 20.0 Lymphocytes # (Auto) 1.8 Monocytes # (Auto) 1.4 Eosinophils # (Auto) 0.0 Basophils # (Auto) 0.1 CBC Comment AUTO DIFF Differential Total Cells Counted 100 Neutrophils % (Manual) 88 Band Neutrophils % 2 Lymphocytes % 3 Monocytes % 4 Neutrophils # (Manual) 21.7 Myelocytes 3 Differential Comment FINAL DIFF MANUAL Platelet Estimate LOW Platelet Morphology Comment NORMAL Ovalocytes 1+ Fabian Cells 1+ Prothrombin Time 27.1 Prothromb Time International Ratio 2.4 Activated Partial Thromboplast Time 38.0 Blood Urea Nitrogen 47 Creatinine 3.09 Random Glucose 78 Total Protein 5.0 Albumin 1.2 Calcium Level 5.7 Alkaline Phosphatase 103 Aspartate Amino Transf (AST/SGOT) 5358 Alanine Aminotransferase (ALT/SGPT) 1668 Total Bilirubin 1.3 Sodium Level 134 Chloride Level 99 Carbon Dioxide Level 14.6 Anion Gap 20 Estimat Glomerular Filtration Rate 23 Protein Corrected Calcium 6.6 Blood Gas Puncture Site RT FEMORAL Blood Gas Patient Temperature 98.6 Blood Gas HCO3 8 Blood Gas Base Excess -18.6 Blood Gas Oxygen Saturation 95 Arterial Blood pH 7.21 Arterial Blood Partial Pressure CO2 21 Arterial Blood Partial Pressure O2 134 Arterial Blood Oxygen Content 11.5 Arterial Blood Carboxyhemoglobin 0.4 Arterial Blood Methemoglobin 1.2 Blood Gas Hemoglobin 8.4 Oxygen Delivery Device VENTILATOR Blood Gas Ventilator Setting PRVC/AC Blood Gas Inspired Oxygen 40 Test 04/24/17 09:30 04/24/17 12:00 04/24/17 13:00 Potassium Level 5.7 Procalcitonin 21.44 Prothrombin Time 24.1 Prothromb Time International Ratio 2.1 Activated Partial Thromboplast Time 35.9 Fibrinogen 177 Blood Gas Puncture Site ART LINE Blood Gas Patient Temperature 98.6 Blood Gas HCO3 15 Blood Gas Base Excess -9.2 Blood Gas Oxygen Saturation 92 Arterial Blood pH 7.37 Arterial Blood Partial Pressure CO2 27 Arterial Blood Partial Pressure O2 81 Arterial Blood Oxygen Content 11.6 Arterial Blood Carboxyhemoglobin 1.0 Arterial Blood Methemoglobin 1.1 Blood Gas Hemoglobin 8.9 Oxygen Delivery Device VENTILATOR Blood Gas Ventilator Setting PRVC/AC 550/20 Blood Gas Inspired Oxygen 40 Date/Time Source Procedure Growth Status 04/24/17 11:51 Blood Peripheral Aerobic Blood Culture Pending Received 04/24/17 11:51 Blood Peripheral Anaerobic Blood Culture Pending Received 04/24/17 12:00 Sputum Endotracheal Acid Fast Stain Pending Received 04/24/17 12:00 Sputum Endotracheal Mycobacterial Culture Pending Received 04/23/17 20:30 Urine Catheterized Urine Legionella Antigen - Final PRESUMPTIVE NEGATIVE FOR LEGIONELLA P... Complete 04/23/17 20:30 Urine Catheterized Urine Streptococcus pneumoniae Antigen (M - Final PRESUMPTIVE NEGATIVE FOR STREPTOCOCCU... Complete Result Diagram: 04/24/17 0400 04/24/17 0930 Imaging Last Impressions Carotid Artery Ultrasound 04/24/17 0000 Signed Impressions: Service Date/Time: Monday, April 24, 2017 12:33 - CONCLUSION: 1. No sonographic or Doppler findings of a hemodynamically significant stenosis in the cervical vessels. No significant plaquing. 2. However, both internal carotid and vertebral artery waveforms show high resistance. This can be seen with distal occlusion or increased intracranial pressures. CTA of the cervical vessels could be performed for further characterization. Nam Amaya MD Brain MRI 04/24/17 0000 Signed Impressions: Service Date/Time: Monday, April 24, 2017 10:27 - CONCLUSION: 1. 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 2. Left parietal lobe infarct containing petechial hemorrhage 3. Scattered deep white matter infarcts in the left frontal lobe. 4. Peripheral left cerebellar infarct 5. Right cerebral mass effect with mild shift. Jd Covington MD Lower Extremity Ultrasound 04/23/17 0000 Signed Impressions: Service Date/Time: Sunday, April 23, 2017 16:26 - CONCLUSION: No DVT is identified within either lower extremity. Lucian Cai MD Head CT 04/23/17 0000 Signed Impressions: Service Date/Time: Sunday, April 23, 2017 21:50 - CONCLUSION: Abnormal area of low density in the left parietal high convexity primarily in the subcortical white matter. It most likely represents an area of vasogenic edema but cytotoxic edema associated with ischemia could have a similar appearance. When patient condition permits consider further characterization with MRI. Lucian Cai MD Chest X-Ray 04/23/17 0000 Signed Impressions: Service Date/Time: Sunday, April 23, 2017 15:43 - CONCLUSION: 1. Bihilar airspace infiltrates which can be seen in pulmonary edema, pneumonia ( especially aspiration) or some inhalation injuries. 2. Endotracheal tube appropriately positioned above the ayaz. Nasogastric tube enters the stomach and extends off the inferior aspect of the image Nam Amaya MD Chest CT 04/23/17 0000 Signed Impressions: Service Date/Time: Sunday, April 23, 2017 21:54 - CONCLUSION: 1. Severe airspace consolidation bilaterally in a distribution favoring severe pulmonary edema as the etiology. 2. Moderate size right and small left pleural effusion. Lucian Cai MD Abdomen/Pelvis CT 04/23/17 0000 Signed Impressions: Service Date/Time: Sunday, April 23, 2017 21:54 - CONCLUSION: 1. No acute finding is identified within the abdomen or pelvis on this noncontrast examination. 2. There are expected changes associated with the right femoral venous line including surrounding inflammation and mild hemorrhage. 3. Mild hepatomegaly. 4. Please refer to chest CT report for description of the supradiaphragmatic findings. Lucian Cai MD Assessment and Plan Problem List: (1) Acute kidney injury ICD Codes: N17.9 - Acute kidney failure, unspecified Status: Acute Plan: This is likely due to acute tubular necrosis from septic shock Discuss with Dr. Lemons Plan to start CRRT this afternoon Continue to observe His prognosis is poor due to multiple strokes of concern is the right massive ischemic stroke with occlusion of right internal carotid artery (2) Septic shock ICD Codes: A41.9 - Sepsis, unspecified organism; R65.21 - Severe sepsis with septic shock Plan: Patient is co-managed with critical care (3) Hyperkalemia ICD Codes: E87.5 - Hyperkalemia Plan: CRRT planned (4) Lactic acid acidosis ICD Codes: E87.2 - Acidosis Plan: As above (5) Transaminitis ICD Codes: R74.0 - Nonspecific elevation of levels of transaminase and lactic acid dehydrogenase [LDH] Plan: Due to shock/ sepsis Chelsea Jaimes MD Apr 24, 2017 14:51
--- NOTE | 2017-04-24 15:00 | RADRPT ---
EXAM DATE/TIME: 04/24/2017 13:56 [facility] COMPARISON: CHEST SINGLE AP, April 23, 2017, 15:43. INDICATIONS : Central line placement. MEDICAL HISTORY : None. SURGICAL HISTORY : None. ENCOUNTER: Initial ACUITY: 1 day PAIN SCORE: Non-responsive. LOCATION: Bilateral chest FINDINGS: A single view of the chest demonstrates a worsening bilateral airspace disease in a configuration daniel racteristic of pulmonary edema or possible inhalation injury. There appears to be a developing right- sided effusion. Endotracheal and nasogastric tubes are unchanged in position. Interval placement of a large bore right IJ's intravenous catheter with the tip projecting over the central venous system. N o pneumothorax. CONCLUSION: 1. Interval placement of a large bore right IJ central venous catheter with the tip projecting over t he central venous system. No pneumothorax. 2. Worsening bilateral airspace disease in a pattern characteristic of pulmonary edema or inhalation injury. Possible developing right-sided effusion as well. 3. Stable position of the endotracheal and nasogastric tubes. Nam Amaya MD on April 24, 2017 at 14:52 Board Certified Radiologist. This report was verified electronically.
--- NOTE | 2017-04-24 15:00 | ECHRPT ---
Indication: POSS SEPSIS, R/O ENDOCARDITIS CONCLUSIONS Normal left ventricular size. Wall thickness is normal. The left ventricular systolic function is normal with an estimated ejection fraction in the range of 55-60%. The left atrial size is moderately dilated. Mild mitral valve regurgitation. Severe aortic valve regurgitation. Findings consistent with vegetation on the aortic valve. BP: 124 / 34 HR: Rhythm: Sinus MEASUREMENTS (Male / Female) Normal Values Technical Quality:Fair 2D ECHO LVOT Diameter 2.1 cm Aortic Root Diameter 2.7 cm M-MODE AV Cusp Separation MM 2.2 cm DOPPLER AV Peak Velocity 150.0 cm/s AV Peak Gradient 9.0 mmHg AV Mean Gradient 5.0 mmHg AV Velocity Time Integral 24.1 cm AI Peak Velocity 377.0 cm/s AI Peak Gradient 56.9 mmHg AI Pressure Half Time 127.5 ms LVOT Peak Velocity 71.2 cm/s LVOT Peak Gradient 2.0 mmHg LVOT Velocity Time Integral 11.6 cm AV Area Cont Eq vti 1.7 cm AV Area Cont Eq pk 1.6 cm Mitral E Point Velocity 99.7 cm/s LV E' Lateral Velocity 14.4 cm/s Mitral E to LV E' Lateral Ratio 6.9 LV E' Septal Velocity 8.4 cm/s Mitral E to LV E' Septal Ratio 11.9 PV Peak Velocity 58.7 cm/s PV Peak Gradient 1.4 mmHg FINDINGS LEFT VENTRICLE Normal left ventricular size. Wall thickness is normal. The left ventricular systolic function is normal with an estimated ejection fraction in the range of 55-60%. RIGHT VENTRICLE Normal right ventricular size and systolic function. LEFT ATRIUM The left atrial size is moderately dilated. RIGHT ATRIUM The right atrial size is normal. ATRIAL SEPTUM Normal atrial septal thickness without atrial level shunting by limited color doppler interrogation. AORTA The aortic root and proximal ascending aorta are normal in size on limited imaging. MITRAL VALVE Mild mitral valve regurgitation. AORTIC VALVE [id number] aortic valve regurgitation. Findings consistent with vegetation on the aortic valve. TRICUSPID VALVE Structurally normal tricuspid valve. No tricuspid valve stenosis or regurgitation. PULMONARY VALVE The pulmonary valve is not well visualized. VESSELS The inferior vena cava is normal in size. PERICARDIUM No pericardial effusion. Christ Munoz MD (Electronically Signed) Final Date:24 April 2017 14:58
[2017-04-24] MEDS ORDERED: HEPARIN-D5W 25,000 U/250 ML 250 ML IV PRN (16:00)
[2017-04-24] MEDS ORDERED: KCL/AQUEOUS SOLN Dialysate additive PRN (16:00)
--- NOTE | 2017-04-24 16:00 | RADRPT ---
EXAM DATE/TIME: 04/24/2017 15:44 [facility] COMPARISON: CHEST SINGLE AP, April 24, 2017, 13:56. INDICATIONS : Left IJ CVL placement. MEDICAL HISTORY : None. SURGICAL HISTORY : None. ENCOUNTER: Initial ACUITY: 1 day PAIN SCORE: 0/10 LOCATION: Bilateral chest FINDINGS: A single view of the chest demonstrates continued worsening of bilateral airspace disease. Possible a ssociated effusion on the right. Interval placement of a left IJ central venous catheter with the tip projecting over the central venous system. No pneumothorax. Remaining life support tubes are stable in position. CONCLUSION: 1. Continued worsening in bilateral airspace disease. Possible worsening right-sided effusion. 2. Interval placement of a left IJ central venous catheter with the tip projecting over the central v enous system. No pneumothorax. 3. Stable position of the remaining right support tubes Nam Amaya MD on April 24, 2017 at 15:56 Board Certified Radiologist. This report was verified electronically.
[2017-04-24] MEDS: levETIRAcetam INJ 250 MG in SODIUM CHLORIDE 0.9% INJ 100 ML IV SCH (16:08)
[2017-04-24] MEDS: CEFTAROLINE INJ 600 MG in SODIUM CHLORIDE 0.9% INJ 100 ML IV SCH (16:21)
[2017-04-24] MEDS ORDERED: PROTAMINE SULFATE IV PRN (16:30)
[2017-04-24] MEDS ORDERED: SODIUM CHLOR 0.9% IV PRN (16:30)
--- NOTE | 2017-04-24 16:33 | OTSOAPIP ---
TIME SESSION COMPLETED: PM TREATMENT TIME: 0 MINS. CHART REVIEWED. ATTEMPTED TO SEE FOR OT EVALUATION, ASKED TO HOLD PER DR. YE AND SEE TOMORROW. Therapist: KENNETH FENG OT/L Signature on file
[2017-04-24 16:44] LABS: HEMATOCRIT 25.2 % (39.0-51.0); MEAN CORPUSCULAR HEMOGLOBIN 26.2 PG (27.0-34.0); MEAN CORPUSCULAR HGB CONC 32.8 % (32.0-36.0); PLATELET COUNT 109 TH/MM3 (150-450); RED BLOOD COUNT 3.16 MIL/MM3 (4.50-5.90); RED CELL DISTRIBUTION WIDTH 15.7 % (11.6-17.2); REVIEW FLAG FINAL; WHITE BLOOD COUNT 24.7 TH/MM3 (4.0-11.0)
[2017-04-24 16:51] LABS: INTERNATIONAL NORMALIZED RATIO 2.2 RATIO; PROTHROMBIN TIME - PATIENT 24.9 SEC (9.8-11.6)
[2017-04-24 16:57] LABS: BICARBONATE 20.2 MEQ/L (21.0-32.0); MAGNESIUM 2.6 MG/DL (1.5-2.5); POTASSIUM 5.2 MEQ/L (3.5-5.1)
[2017-04-24] MEDS ORDERED: FACTOR VIIA (RECOMB) 1 MG VIAL IV PUSH ONE (17:00)
[2017-04-24] MEDS: SODIUM BICARBONATE 8.4% INJ 75 MEQ in SODIUM CHLOR 0.45% 1000 ML INJ 1,000 ML OTHER SCH ×6 (17:00→23:42)
[2017-04-24 17:14] LABS: M. TUBERCULOSIS PCR NOT DETECTED (NOT DETECT)
[2017-04-24] MEDS ORDERED: FACTOR VIIA (RECOMB) 5 MG VIAL IV PUSH ONE (17:15)
[2017-04-24] MEDS ORDERED: FACTOR VIIA (RECOMB) 2 MG VIAL IV PUSH ONE (17:15)
[2017-04-24 17:23] LABS: CALCIUM-PROTEIN CORRECTED 6.6 MG/DL (8.5-10.1)
[2017-04-24] MEDS ORDERED: SODIUM CHLORIDE 0.9% IV SCH (18:00)
[2017-04-24] MEDS ORDERED: CALCIUM CHLORIDE INJ 1 GM in SODIUM CHLORIDE 0.9% INJ 100 ML IV ONE (18:00)
[2017-04-24] MEDS ORDERED: DAPTOMYCIN IV SCH (18:00)
--- NOTE | 2017-04-24 18:02 | PD.PROCEDR ---
Procedure Note Procedure DATE: 04/24/2017 PROCEDURE: Right femoral arterial catheter placement INDICATION: Hemodynamic access DETAILS OF PROCEDURE The patient was placed in supine position. The skin was cleansed with Chloraprep. Additional barrier precautions included large sterile drape, sterile gloves, sterile gown, face mask, and hat. 1% lidocaine was used for local anesthesia. Under direct ultrasound guidance and on the initial attempt, the artery was accessed with an introducer needle. The guide wire was advanced. Using Seldinger technique 20 gauge arterial catheter was placed. The guide wire was removed. The catheter was connected to a transducer line and flushed with saline. The video monitor displayed normal arterial wave forms. The catheter was secured with 2-0 silk. A sterile dressing with antibiotic disc was applied. ESTIMATED BLOOD LOSS: minimal COMPLICATIONS: None Antony Lemons MD Apr 24, 2017 18:02
[2017-04-24 18:48] LABS: APTT (PATIENT) 36.3 SEC (24.3-30.1)
[2017-04-24 18:52] LABS: APTT (PATIENT) 37.3 SEC (24.3-30.1)
[2017-04-24] MEDS ORDERED: 3% SALINE INJ 500 ML IV SCH (20:30)
[2017-04-24] MEDS: MANNITOL 12.5 GM/50 ML VIAL IV SCH (21:26)
[2017-04-24 22:01] LABS: APTT (PATIENT) 34.5 SEC (24.3-30.1)
[2017-04-24 23:54] LABS: APTT (PATIENT) 41.8 SEC (24.3-30.1); APTT (PATIENT) 47.4 SEC (24.3-30.1)
[2017-04-25] VITALS (18 sets, daily range): BP systolic 108–156; BP diastolic 41–60; PULSE 92–110; RESP 20–28; TEMP 97.4–102.6; O2SAT 95–100
[2017-04-25] MEDS: CEFTAROLINE INJ 600 MG in SODIUM CHLORIDE 0.9% INJ 100 ML IV SCH (00:25)
[2017-04-25] MEDS: NOREPINEPHRINE 4 MG/D5W 250 ML IV PRN ×3 (00:26→22:58)
[2017-04-25] MEDS: RESP: ALBUTEROL 2.5 MG/IPRATROPIUM 0.5 MG NEB (SCH) INH ×6 (00:32→20:08)
[2017-04-25 02:05] LABS: AUTOMATED NEUTROPHIL # 19.9 TH/MM3 (1.8-7.7); BASOPHIL % 0.2 % (0.0-2.0); HEMATOCRIT 24.3 % (39.0-51.0); LYMPHOCYTE # 1.1 TH/MM3 (1.0-4.8); MEAN CELL VOLUME 79.5 FL (80.0-100.0); MEAN CORPUSCULAR HEMOGLOBIN 25.5 PG (27.0-34.0); MEAN CORPUSCULAR HGB CONC 32.1 % (32.0-36.0); MONO % 4.4 % (0.0-8.0); NEUT % 90.4 % (16.0-70.0); PLATELET COUNT 109 TH/MM3 (150-450); RED BLOOD COUNT 3.06 MIL/MM3 (4.50-5.90); RED CELL DISTRIBUTION WIDTH 15.7 % (11.6-17.2); WHITE BLOOD COUNT 22.1 TH/MM3 (4.0-11.0)
[2017-04-25 02:08] LABS: HEMO FLAGS AUTO DIFF
[2017-04-25 02:15] LABS: APTT (PATIENT) 41.1 SEC (24.3-30.1); INTERNATIONAL NORMALIZED RATIO 2.3 RATIO; PROTHROMBIN TIME - PATIENT 26.1 SEC (9.8-11.6)
[2017-04-25 02:15] LABS: APTT (PATIENT) 47.8 SEC (24.3-30.1)
[2017-04-25 02:39] LABS: SCAN/DIFF AUTO DIFF CONFIRMED
[2017-04-25 02:52] LABS: BLOOD UREA NITROGEN 58 MG/DL (7-18); GLOMERULAR FILTRATION RATE 17 ML/MIN (>89)
[2017-04-25 02:53] LABS: ALKALINE PHOSPHATASE 176 U/L (45-117); MAGNESIUM 2.2 MG/DL (1.5-2.5)
[2017-04-25 02:54] LABS: ALT (GPT) 4685 U/L (12-78); ANION GAP 22 MEQ/L (5-15); CHLORIDE 92 MEQ/L (98-107); POTASSIUM 4.3 MEQ/L (3.5-5.1); SODIUM (NA) 137 MEQ/L (136-145); TOTAL BILIRUBIN ADULT 3.1 MG/DL (0.2-1.0)
[2017-04-25] MEDS: SODIUM BICARBONATE 8.4% INJ 150 MEQ in WATER STERILE FOR INJ 850 ML IV SCH (03:00)
[2017-04-25] MEDS: fentaNYL DRIP 250 ML IV PRN (03:03)
[2017-04-25] MEDS: MIDAZOLAM 100 MG/100 ML INJ 100 ML IV PRN (03:03)
[2017-04-25] MEDS: PROPOFOL 1000 MG/100 ML INJ 100 ML IV PRN ×2 (03:04→05:57)
[2017-04-25] MEDS: SODIUM BICARBONATE 8.4% INJ 75 MEQ in SODIUM CHLOR 0.45% 1000 ML INJ 1,000 ML OTHER SCH ×13 (03:05→14:40)
[2017-04-25 03:07] LABS: AST (GOT) 17978 U/L (15-37)
[2017-04-25 03:10] LABS: CALCIUM-PROTEIN CORRECTED 5.6 MG/DL (8.5-10.1)
[2017-04-25] MEDS: CHLORHEXIDINE GLUCONATE 2 % 1 PACK (2 CLOTHS)(taper/protocol) TOPICAL SCH (04:00)
[2017-04-25] MEDS: CHLORHEXIDINE GLUCONATE 2 % 1 PACK (2 CLOTHS) TOP SCH (04:00)
[2017-04-25] MEDS: CEFEPIME INJ 2,000 MG in SODIUM CHLORIDE 0.9% INJ 100 ML IV SCH ×2 (04:05→11:25)
[2017-04-25] MEDS: MANNITOL 12.5 GM/50 ML VIAL IV SCH ×3 (04:05→22:29)
[2017-04-25] MEDS: levETIRAcetam INJ 250 MG in SODIUM CHLORIDE 0.9% INJ 100 ML IV SCH ×2 (04:06→18:21)
[2017-04-25] MEDS ORDERED: CALCIUM GLUCONATE INJ 2 GM in DEXTROSE 5% IN WATER 100ML INJ 100 ML IV ONE ×2 (04:30)
[2017-04-25 05:47] LABS: BLOOD GAS BASE EXCESS -3.9 mmol/L (-2-2); BLOOD GAS CARBOXYHEMOGLOBIN 1.2 % (0-4); BLOOD GAS HCO3 19 mmol/L (22-26); BLOOD GAS METHEMOGLOBIN 1.4 % (0-2); BLOOD GAS O2 HGB SATURATION 95 % (90-100); BLOOD GAS OXYGEN CONTENT 11.3 Vol % (12.0-20.0); BLOOD GAS PCO2 28 mmHg (38-42); BLOOD GAS PO2 113 mmHg (61-120); BLOOD GAS TOTAL HGB 8.3 G/DL (12.0-16.0); CRITICAL VALUE NO; OXYGEN DEVICE VENTILATOR; TEMP CORR TO 98.6
[2017-04-25 05:48] LABS: DRAW SITE ART LINE; FIO2 40 %; STAT NO; VENT SETTINGS PRVC/AC
[2017-04-25] MEDS: INSULIN NovoLIN REGULAR SUPPLEMENTAL SCALE SQ SCH ×4 (06:00→18:00)
[2017-04-25 06:05] LABS: APTT (PATIENT) 42.7 SEC (24.3-30.1)
--- NOTE | 2017-04-25 06:14 | RADRPT ---
EXAM DATE/TIME: 04/25/2017 03:57 [facility] COMPARISON: CHEST SINGLE AP, April 24, 2017, 15:44. INDICATIONS : Short of breath. MEDICAL HISTORY : None. SURGICAL HISTORY : None. ENCOUNTER: Subsequent ACUITY: 4 - 6 days PAIN SCORE: 0/10 LOCATION: Bilateral chest FINDINGS: A single view of the chest demonstrates the endotracheal tube, bilateral central lines, and a nasogas tric oral and position. Patchy bilateral diffuse infiltrates have slightly improved. The cardiomedia stinal contours are unremarkable. Osseous structures are intact. CONCLUSION: Some improvement in the aeration of the lungs bilaterally. Donovan Pierce MD on April 25, 2017 at 6:12 Board Certified Radiologist. This report was verified electronically.
--- NOTE | 2017-04-25 08:11 | HHI.CCPN ---
Subjective Remarks/Hospital Course This is a 36-year-old male. He admission 04/23/2017. Past mesentery history is defined as prior IV drug use, Mycobacterium diagnosis untreated and bilateral lower extremity cellulitis. Today he presents to [facility] in acute hypercapnic hypoxic respiratory distress. According to records, prior to intubation patient was on nonrebreather with saturations in the mid 80s. 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 Pt has been having abdominal pain as well with fever, vomiting. Has been having bilateral lower extremity edema for 2 weeks. Pt has been on Bactrim and clindamycin for a foot infection. Patient was intubated with a 7.5 ET tube after receiving 20 mg etomidate 100 mg succinylcholine. Patient has significant respiratory and anion gap metabolic acidosis on his ABG. Chest x-ray showed bilateral upper lobe infiltrates versus pneumonia versus edema versus other. Ultrasound bilateral lower extremities revealed no DVT. CT thorax currently ordered along with head, abdomen and pelvis. Patient had a significant leukocytosis of 37,000. Anemia with a hemoglobin 10. Also pertinent, Patient elevated creatinine around 2.2. Elevated potassium 5.7. Elevated transaminases. With an AST in the 1400s ALT in the 500s. Low sodium. Elevated troponin. EKG and T echocardiogram is currently pending. Patient did received piperacillin/tazobactam and vancomycin in the ED. Subjective 04/24: Noted imaging overnight. MRI brain today revealed right ICA occlusion, right parietal lobe mass/abscess with hemorrhage, right frontal locate right cerebellar and right triple masses noted. There is a 4 mm shift right to left due to edema. Patient also likely has valvular endocarditis, lactic acidosis, acute kidney injury currently oliguric and acute liver failure. 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 Discussed with Dr. Gautam. 04/25 Patient is sedated with Diprivan, Versed and Fentanyl drips, Levophed down 4 mics. On CCRT and bicarb drip. Patient was hypoglycemic this morning with BS 20 given 1 amp D50. He was noted to have unequal pupil size CT brain ordered however after discussion with patient's father Dr. Maza he would like to hold off on it Lactic acid 12.6.. Objective Vital Signs Date Time Temp Pulse Resp B/P (MAP) Pulse Ox O2 Delivery O2 Flow Rate FiO2 04/25/17 04:20 97 40 04/25/17 04:00 97.6 99 108/51 (70) 127/41 (69) 04/25/17 00:00 28 04/23/17 18:05 Ventilator Intake and Output 04/25/17 04/25/17 04/26/17 08:00 16:00 00:00 Intake Total 120 ml Output Total 5 ml Balance 115 ml Result Diagram: 04/25/17 0150 04/25/17 0150 Other Results Laboratory Tests Test 04/24/17 09:30 04/24/17 12:00 04/24/17 13:00 04/24/17 15:00 Potassium Level 5.7 MEQ/L 5.2 MEQ/L Procalcitonin 21.44 ng/mL Prothrombin Time 24.1 SEC 24.9 SEC Prothromb Time International Ratio 2.1 RATIO 2.2 RATIO Activated Partial Thromboplast Time 35.9 SEC 38.0 SEC Fibrinogen 177 mg/dL 200 mg/dL M. tuberculosis Complex DNA (PCR) NOT DETECTED Blood Gas Puncture Site ART LINE Blood Gas Patient Temperature 98.6 Blood Gas HCO3 15 mmol/L Blood Gas Base Excess -9.2 mmol/L Blood Gas Oxygen Saturation 92 % Arterial Blood pH 7.37 Arterial Blood Partial Pressure CO2 27 mmHg Arterial Blood Partial Pressure O2 81 mmHg Arterial Blood Oxygen Content 11.6 Vol % Arterial Blood Carboxyhemoglobin 1.0 % Arterial Blood Methemoglobin 1.1 % Blood Gas Hemoglobin 8.9 G/DL Oxygen Delivery Device VENTILATOR Blood Gas Ventilator Setting PRVC/AC 550/20 Blood Gas Inspired Oxygen 40 % White Blood Count 24.7 TH/MM3 Red Blood Count 3.16 MIL/MM3 Hemoglobin 8.3 GM/DL Hematocrit 25.2 % Mean Corpuscular Volume 80.0 FL Mean Corpuscular Hemoglobin 26.2 PG Mean Corpuscular Hemoglobin Concent 32.8 % Red Cell Distribution Width 15.7 % Platelet Count 109 TH/MM3 Mean Platelet Volume 10.2 FL Blood Urea Nitrogen 63 MG/DL Creatinine 3.92 MG/DL Random Glucose 163 MG/DL Total Protein 5.4 GM/DL Calcium Level 5.9 MG/DL Phosphorus Level 9.1 MG/DL Magnesium Level 2.6 MG/DL Sodium Level 134 MEQ/L Chloride Level 93 MEQ/L Carbon Dioxide Level 20.2 MEQ/L Anion Gap 21 MEQ/L Estimat Glomerular Filtration Rate 18 ML/MIN Protein Corrected Calcium 6.6 MG/DL Test 04/24/17 16:30 04/24/17 18:15 04/24/17 20:00 04/24/17 23:19 Lactic Acid Level 10.5 mmol/L Activated Partial Thromboplast Time 37.3 SEC 42.0 SEC Sodium Level 138 MEQ/L Serum Osmolality 307 MOSM/KG Test 04/24/17 23:30 04/25/17 01:50 04/25/17 01:55 04/25/17 05:00 Activated Partial Thromboplast Time 41.8 SEC 41.1 SEC 47.8 SEC 42.7 SEC White Blood Count 22.1 TH/MM3 Red Blood Count 3.06 MIL/MM3 Hemoglobin 7.8 GM/DL Hematocrit 24.3 % Mean Corpuscular Volume 79.5 FL Mean Corpuscular Hemoglobin 25.5 PG Mean Corpuscular Hemoglobin Concent 32.1 % Red Cell Distribution Width 15.7 % Platelet Count 109 TH/MM3 Mean Platelet Volume 9.6 FL Neutrophils (%) (Auto) 90.4 % Lymphocytes (%) (Auto) 5.0 % Monocytes (%) (Auto) 4.4 % Eosinophils (%) (Auto) 0.0 % Basophils (%) (Auto) 0.2 % Neutrophils # (Auto) 19.9 TH/MM3 Lymphocytes # (Auto) 1.1 TH/MM3 Monocytes # (Auto) 1.0 TH/MM3 Eosinophils # (Auto) 0.0 TH/MM3 Basophils # (Auto) 0.0 TH/MM3 CBC Comment AUTO DIFF Differential Comment AUTO DIFF CONFIRMED Prothrombin Time 26.1 SEC Prothromb Time International Ratio 2.3 RATIO Fibrinogen 133 mg/dL Blood Urea Nitrogen 58 MG/DL Creatinine 3.98 MG/DL Random Glucose 77 MG/DL Total Protein 5.5 GM/DL Albumin 1.7 GM/DL Calcium Level LESS THAN 5.0 MG/DL Phosphorus Level 8.5 MG/DL Magnesium Level 2.2 MG/DL Alkaline Phosphatase 176 U/L Aspartate Amino Transf (AST/SGOT) 68543 U/L Alanine Aminotransferase (ALT/SGPT) 4685 U/L Total Bilirubin 3.1 MG/DL Sodium Level 137 MEQ/L Potassium Level 4.3 MEQ/L Chloride Level 92 MEQ/L Carbon Dioxide Level 23.0 MEQ/L Anion Gap 22 MEQ/L Estimat Glomerular Filtration Rate 17 ML/MIN Serum Osmolality 311 MOSM/KG Lactic Acid Level 12.6 mmol/L Protein Corrected Calcium 5.6 MG/DL Ammonia 34 MCMOL/L Test 04/25/17 05:39 Blood Gas Puncture Site ART LINE Blood Gas Patient Temperature 98.6 Blood Gas HCO3 19 mmol/L Blood Gas Base Excess -3.9 mmol/L Blood Gas Oxygen Saturation 95 % Arterial Blood pH 7.45 Arterial Blood Partial Pressure CO2 28 mmHg Arterial Blood Partial Pressure O2 113 mmHg Arterial Blood Oxygen Content 11.3 Vol % Arterial Blood Carboxyhemoglobin 1.2 % Arterial Blood Methemoglobin 1.4 % Blood Gas Hemoglobin 8.3 G/DL Oxygen Delivery Device VENTILATOR Blood Gas Ventilator Setting PRVC/AC Blood Gas Inspired Oxygen 40 % Imaging Last Impressions Chest X-Ray 04/25/17 0600 Signed Impressions: Service Date/Time: Tuesday, April 25, 2017 03:57 - CONCLUSION: Some improvement in the aeration of the lungs bilaterally. Donovan Pierce MD Carotid Artery Ultrasound 04/24/17 0000 Signed Impressions: Service Date/Time: Monday, April 24, 2017 12:33 - CONCLUSION: 1. No sonographic or Doppler findings of a hemodynamically significant stenosis in the cervical vessels. No significant plaquing. 2. However, both internal carotid and vertebral artery waveforms show high resistance. This can be seen with distal occlusion or increased intracranial pressures. CTA of the cervical vessels could be performed for further characterization. Nam Amaya MD Brain MRI 04/24/17 0000 Signed Impressions: Service Date/Time: Monday, April 24, 2017 10:27 - CONCLUSION: 1. 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 2. Left parietal lobe infarct containing petechial hemorrhage 3. Scattered deep white matter infarcts in the left frontal lobe. 4. Peripheral left cerebellar infarct 5. Right cerebral mass effect with mild shift. Jd Covington MD Lower Extremity Ultrasound 04/23/17 0000 Signed Impressions: Service Date/Time: Sunday, April 23, 2017 16:26 - CONCLUSION: No DVT is identified within either lower extremity. Lucian Cai MD Head CT 04/23/17 0000 Signed Impressions: Service Date/Time: Sunday, April 23, 2017 21:50 - CONCLUSION: Abnormal area of low density in the left parietal high convexity primarily in the subcortical white matter. It most likely represents an area of vasogenic edema but cytotoxic edema associated with ischemia could have a similar appearance. When patient condition permits consider further characterization with MRI. Lucian Cai MD Chest CT 04/23/17 0000 Signed Impressions: Service Date/Time: Sunday, April 23, 2017 21:54 - CONCLUSION: 1. Severe airspace consolidation bilaterally in a distribution favoring severe pulmonary edema as the etiology. 2. Moderate size right and small left pleural effusion. Lucian Cai MD Abdomen/Pelvis CT 04/23/17 0000 Signed Impressions: Service Date/Time: Sunday, April 23, 2017 21:54 - CONCLUSION: 1. No acute finding is identified within the abdomen or pelvis on this noncontrast examination. 2. There are expected changes associated with the right femoral venous line including surrounding inflammation and mild hemorrhage. 3. Mild hepatomegaly. 4. Please refer to chest CT report for description of the supradiaphragmatic findings. Lucian Cai MD Objective Remarks GENERAL: 36-year-old male, critically ill currently orotracheally intubated SKIN: Cool left lower extremity. Signs of septic emboli with petechial hemorrhage bilateral feet left greater than right. HEAD: Atraumatic. Normocephalic. EYES: Pupils equal and round about 2 mm bilaterally and reactive. No scleral icterus. No injection or drainage. ENT: No nasal bleeding or discharge. Mucous membranes pink and moist. Oropharynx without erythema NECK: Trachea midline. No JVD. CARDIOVASCULAR: Tachycardic, RR. S1, S2. No S4. I do not appreciate a murmur likely due to rhonchorous breath sounds RESPIRATORY: Positive accessory muscle use. Rhonchorous breath sounds are appreciated throughout lung. These are appreciated anterior and posteriorly. GASTROINTESTINAL: Abdomen soft, non-tender, nondistended. Hypoactive bowel sounds appreciated MUSCULOSKELETAL: Extremities with 1+ bilateral lower extremity below the knee edema. No obvious deformities. Noted septic emboli changes bilateral lower extremities/livedo reticularis NEUROLOGICAL: Patient is currently orotracheally intubated on propofol, midazolam and fentanyl drips. Positive gag. Positive corneal reflex. Currently not withdrawing to pain to deep noxious stimuli A/P Assessment and Plan Neuro/Psych: Acute toxic metabolic encephalopathy Right ICA occlusion Left parietal lobe mass On Fentanyl, Versed, and Diprivan infusion for sedation Goal of RASS -[address] brain revealed cerebral edema in the left parietal lobe. MRI brain revealed right ICA occlusion with a 4 mm shift right to left, left parietal lobe hemorrhage/abscess/infarct with changes likely embolic infarcts in the left frontal lobe and left cerebellar and right cerebral regions. Neurosurgery is following. Patient's father -Justin Maza wants to hold off on any neurosurgical intervention at this time( decompressive hemicraniectomy) On levetiracetam 250 mg IV twice a day.. There are no optimal medications for seizure prophylaxis with hepatic and renal failure Urine drug screen, revealed positive amphetamines, opiates and benzodiazepines on thiamine, folate and multivitamin with possible prior history of EtOH use. 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 Status post 5 L crystalloid in ED Change IVF D5W+2 amps bicarb @75ml/hr Wean off Levophed currently on 4 mics keep MAP>65mmHg Serial lactic acid trend- Lactic acid 12.6 Trend troponin every 8 hours 2 currently trending downward 4.2 Echo showed EF 55-60%, Vegetations on Aortic valve, Severe AR Resp: Acute hypoxic hypercapnic respiratory failure PRVC 20/550/1//40 Ventilator bundle Albuterol/ipratropium aerosols every 6 hours with albuterol aerosols every 2 hours as needed for dyspnea Spontaneous breathing trials when clinically indicated CXR today some improvements in aerations of lungs b/l GI: Elevated transaminases- davidley 2nd Hepatic shock Hypoalbuminemia Patient is currently nothing by mouth. OG tube to LIWS Lansoprazole for GI prophylaxis Docusate sodium/senna 1 tablet twice a day for bowel regimen Follow-up on CT abdomen/pelvis revealed a liver 21.3 cm. Otherwise no acute intra-abdominal findings Endo: Sliding-scale insulin with Accu-Cheks to maintain euglycemia Novulon r every 6 hours/low regimen TSH was normal Renal: Acute kidney injury currently oliguric Status post 5 L crystalloid in the ED. CT abdomen/pelvis no hydronephrosis Monitor renal function, I/O's, avoid nephrotoxins Nephrology is following. On CRRT. Cr: 3.98 today, UOP: 60 ml in 24 hrs Heme: Leukocytosis Normocytic anemia Elevated INR Low fibrinogen Likely all secondary to severe sepsis/hepatic failure Monitor CBC, coags Vitamin K 10 milligrams IV 1 now. Kcentra 2500 units now and cryoprecipitate 1 04/24. ID: History of Mycobacterium exposure? Severe sepsis with history of IV drug use Enterococcus, GPC bacteremia On Dapto, Cefepime, Teflaro, Flagyl. ID is following. Monitor CK's Received 1 dose of vancomycin and piperacillin/tazobactam in ED urine pneumococcal and Legionella antigens negative Follow up on BC from 04/24. 04/25 MSK: PT evaluate and treat Dopplers bilateral extremity is negative for DVT these are likely embolic from valvular Access - Utilize right femoral CVL placed in ED. Prophylaxis -GI -lansoprazole - DVT - SCD/holding pharmacological prophylaxis elevated INR Discussed with Dr. Warner from Palliative care after meeting with patient's father he elected to stop all blood work, CRRT and if patient survives tonight will likely withdraw in next 24 hrs. Poor prognosis given MODS. Discussed with Dr. Gautam Critical Care: The total critical care time was 35 minutes. Time to perform other separately billable procedures was not included in the critical care time. Maryanne Sy MD Apr 25, 2017 08:11
[2017-04-25] MEDS ORDERED: CALCIUM GLUCONATE INJ 1 GM in DEXTROSE 5% IN WATER 100ML INJ 100 ML IV ONE ×2 (08:15)
[2017-04-25] MEDS: CHLORHEXIDINE 0.12% (ORAL KIT) 15 ML CUP MT SCH ×2 (08:42→22:30)
[2017-04-25] MEDS: FOLIC ACID 1 MG TAB PO SCH (08:58)
[2017-04-25] MEDS: THIAMINE INJ 100 MG in SODIUM CHLORIDE 0.9% INJ 100 ML IV SCH (08:58)
[2017-04-25] MEDS: LANSOPRAZOLE SOLUTAB 30 MG TAB G-TUBE SCH (08:59)
[2017-04-25] MEDS: DOCUSATE SODIUM 50 MG/SENNA 8.6 MG TAB PO SCH ×2 (08:59→22:30)
[2017-04-25] MEDS: ARTIFICIAL TEARS OPTH SOLN 15 ML BTL EACH EYE SCH ×3 (09:06→18:21)
[2017-04-25] MEDS: SODIUM BICARBONATE 8.4% INJ 100 MEQ in DEXTROSE 5% IN WATE 1000ML INJ 1,000 ML IV SCH ×2 (09:07)
[2017-04-25] MEDS: SODIUM CHLORIDE 0.9% FLUSH 10 ML FLUSH IV FLUSH SCH ×3 (09:08→22:31)
[2017-04-25] MEDS: MULTIVITAMIN TAB PO SCH (09:09)
[2017-04-25 09:10] LABS: APTT (PATIENT) 42.5 SEC (24.3-30.1)
[2017-04-25 09:12] LABS: CKMB 30.9 NG/ML (0.5-3.6)
[2017-04-25 10:01] LABS: APTT (PATIENT) 56.5 SEC (24.3-30.1)
[2017-04-25 11:34] LABS: APTT (PATIENT) 42.9 SEC (24.3-30.1)
--- NOTE | 2017-04-25 12:12 | HHI.IDPN ---
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 Patient was admitted to the hospital on 04/23/2017, also father reported prior IV drug use. Today he presents to [place] ED in acute hypercapnic hypoxic respiratory distress. According to records, prior to intubation patient was on nonrebreather with saturations in the mid 80s. 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 Pt has been having abdominal pain as well with fever, vomiting. Has been having bilateral lower extremity edema for 2 weeks. Patient was intubated in the ED for respiratory distress. Patient has significant respiratory and anion gap metabolic acidosis on his ABG. Chest x- ray showed bilateral upper lobe infiltrates versus pneumonia versus edema. Ultrasound bilateral lower extremities revealed no DVT. CT thorax currently ordered along with head, abdomen and pelvis. Patient had a significant leukocytosis of 37,000. Anemia with a hemoglobin 10, elevated creatinine around 2.2. Elevated potassium 5.7. Elevated transaminases. With an AST in the 1400s ALT in the 500s. Low sodium. Elevated troponin. ECHO with prelim read of aortic valve endocarditis. Sepsis workup initiated and patient received Zosyn IV and Vanco IV in ED. CT brain with left side infarct and some right side edema. MRI brain done with multiple emboli. Left side with septic emboli possible abscess based on my read. Right side with significant changes plus edema and midline shift minimal. Reviewed imaging with and RN. At the time of my evaluation, patient is in the [facility] unit intubated sedated, on Levophed, UO none. Despite being intubated patient appears tachypneic. ID has been consulted for evaluation and Mment of Septic shock, staph aortic valve endocarditis. Overnight events reviewed Tmax 101 F Tc normal. No rash. No diarrhea. On Vasopressors Levophed and Vasopressin. On CVVHD UO none Pupils unequal in am plan for repeat CT brain but patients Dad would like to hold off at present time. Antibiotics Cefepime IV Teflaro IV Dapto IV Lines Line sites with no e.o infection. Past Medical History IV drug use No prior known h/o endocarditis or other infections. No documented surgery. Allergies: Coded Allergies: No Known Allergies (Unverified , 04/23/17) Objective . Vital Signs Date Time Temp Pulse Resp B/P (MAP) Pulse Ox O2 Delivery O2 Flow Rate FiO2 04/25/17 11:31 100 40 04/25/17 10:00 97 04/25/17 08:34 99 40 04/25/17 08:00 105 115/54 (74) 97 123/47 (72) 04/25/17 08:00 105 04/25/17 08:00 40 04/25/17 06:00 100 04/25/17 04:20 97 40 04/25/17 04:00 97.6 99 108/51 (70) 100 127/41 (69) 04/25/17 04:00 102 04/25/17 04:00 40 04/25/17 02:00 104 04/25/17 00:40 98 40 04/25/17 00:26 17 112/55 04/25/17 00:00 110 04/25/17 00:00 40 04/25/17 00:00 99.3 108 28 116/58 (77) 97 04/24/17 22:00 110 04/24/17 21:45 96 40 04/24/17 20:00 40 04/24/17 20:00 107 04/24/17 20:00 99.3 107 30 128/58 (81) 100 102/70 (81) 04/24/17 18:48 114/56 04/24/17 18:40 93/37 04/24/17 18:30 106 88/34 04/24/17 18:20 105 71/34 04/24/17 18:10 105 108/44 04/24/17 18:00 107 110/41 04/24/17 18:00 107 04/24/17 17:45 108 99/31 04/24/17 17:00 113 92/55 04/24/17 16:09 120/34 04/24/17 16:04 96 40 04/24/17 16:00 40 04/24/17 16:00 101.0 109 121/28 (59) 96 04/24/17 16:00 109 04/24/17 15:33 101.0 110 26 138/31 94 04/24/17 15:30 111 144/31 04/24/17 15:15 101.0 112 27 148/32 04/24/17 15:00 112 150/29 (69) 100 04/24/17 15:00 112 150/29 04/24/17 14:30 111 142/41 04/24/17 14:00 114 04/24/17 14:00 114 135/35 (68) 99 04/24/17 14:00 114 135/35 04/24/17 13:30 116 142/43 04/24/17 13:00 113 120/54 (76) 94 128/41 (70) 04/24/17 13:00 113 128/41 04/24/17 12:26 99.0 111 28 111/34 95 04/24/17 12:14 94 40 04/24/17 12:11 100.2 109 27 115/34 95 04/25/17 04/25/17 04/26/17 15:00 23:00 07:00 Intake Total 1291 ml Output Total 0 ml Balance 1291 ml Intake IV Total 1171 ml Other 120 ml Output Urine Total 0 ml . Laboratory Tests Test 04/23/17 15:45 04/24/17 04:00 04/24/17 15:00 04/25/17 01:50 White Blood Count 37.5 TH/MM3 23.3 TH/MM3 24.7 TH/MM3 22.1 TH/MM3 Red Blood Count 3.83 MIL/MM3 3.01 MIL/MM3 3.16 MIL/MM3 3.06 MIL/MM3 Hemoglobin 9.9 GM/DL 8.0 GM/DL 8.3 GM/DL 7.8 GM/DL Hematocrit 31.8 % 24.7 % 25.2 % 24.3 % Mean Corpuscular Volume 83.2 FL 82.1 FL 80.0 FL 79.5 FL Mean Corpuscular Hemoglobin 25.9 PG 26.5 PG 26.2 PG 25.5 PG Mean Corpuscular Hemoglobin Concent 31.1 % 32.3 % 32.8 % 32.1 % Red Cell Distribution Width 16.2 % 16.0 % 15.7 % 15.7 % Platelet Count 206 TH/MM3 135 TH/MM3 109 TH/MM3 109 TH/MM3 Mean Platelet Volume 10.1 FL 9.6 FL 10.2 FL 9.6 FL Neutrophils (%) (Auto) 83.6 % 86.2 % 90.4 % Lymphocytes (%) (Auto) 10.8 % 7.6 % 5.0 % Monocytes (%) (Auto) 4.6 % 5.9 % 4.4 % Eosinophils (%) (Auto) 0.2 % 0.0 % 0.0 % Basophils (%) (Auto) 0.8 % 0.3 % 0.2 % Neutrophils # (Auto) 31.4 TH/MM3 20.0 TH/MM3 19.9 TH/MM3 Lymphocytes # (Auto) 4.1 TH/MM3 1.8 TH/MM3 1.1 TH/MM3 Monocytes # (Auto) 1.7 TH/MM3 1.4 TH/MM3 1.0 TH/MM3 Eosinophils # (Auto) 0.1 TH/MM3 0.0 TH/MM3 0.0 TH/MM3 Basophils # (Auto) 0.3 TH/MM3 0.1 TH/MM3 0.0 TH/MM3 CBC Comment AUTO DIFF AUTO DIFF AUTO DIFF Differential Total Cells Counted 100 100 Neutrophils % (Manual) 83 % 88 % Band Neutrophils % 2 % 2 % Lymphocytes % 10 % 3 % Monocytes % 3 % 4 % Neutrophils # (Manual) 32.6 TH/MM3 21.7 TH/MM3 Myelocytes 2 % 3 % Nucleated Red Blood Cells 1 /100 WBC Differential Comment FINAL DIFF MANUAL FINAL DIFF MANUAL AUTO DIFF CONFIRMED Platelet Estimate NORMAL LOW Platelet Morphology Comment NORMAL NORMAL Fabian Cells 1+ 1+ Keratocytes 1+ Ovalocytes 1+ Laboratory Tests Test 04/23/17 15:45 04/23/17 17:20 04/23/17 17:31 04/23/17 20:30 Lactic Acid Level 13.7 mmol/L 9.0 mmol/L 7.2 mmol/L Blood Urea Nitrogen 35 MG/DL Creatinine 2.25 MG/DL Random Glucose 105 MG/DL Total Protein 6.8 GM/DL Albumin 1.8 GM/DL Calcium Level 7.3 MG/DL Alkaline Phosphatase 139 U/L Aspartate Amino Transf (AST/SGOT) 1455 U/L Alanine Aminotransferase (ALT/SGPT) 493 U/L Total Bilirubin 0.9 MG/DL Sodium Level 127 MEQ/L Potassium Level 5.6 MEQ/L Chloride Level 93 MEQ/L Carbon Dioxide Level 16.0 MEQ/L Anion Gap 18 MEQ/L Estimat Glomerular Filtration Rate 33 ML/MIN Protein Corrected Calcium 7.5 MG/DL Troponin I 5.29 NG/ML Test 04/23/17 22:15 04/24/17 04:00 04/24/17 09:30 04/24/17 15:00 Potassium Level 5.4 MEQ/L 6.3 MEQ/L 5.7 MEQ/L 5.2 MEQ/L Phosphorus Level 8.2 MG/DL 9.0 MG/DL 9.1 MG/DL Magnesium Level 2.6 MG/DL 2.4 MG/DL 2.6 MG/DL Ammonia 19 MCMOL/L Total Creatine Kinase 1689 U/L Creatine Kinase MB 15.7 NG/ML Creatine Kinase MB % 0.9 % Troponin I 4.60 NG/ML 4.28 NG/ML Amylase Level 136 U/L Lipase 181 U/L Thyroid Stimulating Hormone 3rd Gen 0.854 uIU/ML Blood Urea Nitrogen 47 MG/DL 63 MG/DL Creatinine 3.09 MG/DL 3.92 MG/DL Random Glucose 78 MG/DL 163 MG/DL Total Protein 5.0 GM/DL 5.4 GM/DL Albumin 1.2 GM/DL Calcium Level 5.7 MG/DL 5.9 MG/DL Alkaline Phosphatase 103 U/L Aspartate Amino Transf (AST/SGOT) 5358 U/L Alanine Aminotransferase (ALT/SGPT) 1668 U/L Total Bilirubin 1.3 MG/DL Sodium Level 134 MEQ/L 134 MEQ/L Chloride Level 99 MEQ/L 93 MEQ/L Carbon Dioxide Level 14.6 MEQ/L 20.2 MEQ/L Anion Gap 20 MEQ/L 21 MEQ/L Estimat Glomerular Filtration Rate 23 ML/MIN 18 ML/MIN Lactic Acid Level 12.7 mmol/L Protein Corrected Calcium 6.6 MG/DL 6.6 MG/DL Procalcitonin 21.44 ng/mL Test 04/24/17 16:30 04/24/17 23:19 04/25/17 01:50 04/25/17 11:30 Lactic Acid Level 10.5 mmol/L 12.6 mmol/L Sodium Level 138 MEQ/L 137 MEQ/L Serum Osmolality 307 MOSM/KG 311 MOSM/KG Blood Urea Nitrogen 58 MG/DL Creatinine 3.98 MG/DL Random Glucose 77 MG/DL Total Protein 5.5 GM/DL Albumin 1.7 GM/DL Calcium Level LESS THAN 5.0 MG/DL Phosphorus Level 8.5 MG/DL Magnesium Level 2.2 MG/DL Alkaline Phosphatase 176 U/L Aspartate Amino Transf (AST/SGOT) 84219 U/L Alanine Aminotransferase (ALT/SGPT) 4685 U/L Total Bilirubin 3.1 MG/DL Potassium Level 4.3 MEQ/L Chloride Level 92 MEQ/L Carbon Dioxide Level 23.0 MEQ/L Anion Gap 22 MEQ/L Estimat Glomerular Filtration Rate 17 ML/MIN Protein Corrected Calcium 5.6 MG/DL Ammonia 34 MCMOL/L Total Creatine Kinase 5015 U/L Creatine Kinase MB 30.9 NG/ML Creatine Kinase MB % 0.6 % Microbiology Date/Time Source Procedure Growth Status 04/25/17 05:30 Blood Peripheral Aerobic Blood Culture Pending Received 04/25/17 05:30 Blood Peripheral Anaerobic Blood Culture Pending Received 04/24/17 11:51 Blood Peripheral Aerobic Blood Culture - Preliminary Gram Positive Cocci Resulted 04/24/17 11:51 Anaerobic Blood Culture - Preliminary Gram Positive Cocci Resulted 04/23/17 15:50 Blood Peripheral Aerobic Blood Culture - Preliminary Gram Positive Cocci Resulted 04/23/17 15:50 Anaerobic Blood Culture - Preliminary Gram Positive Cocci Resulted 04/23/17 15:45 Blood Peripheral Aerobic Blood Culture - Preliminary Enterococcus Faecalis Resulted 04/23/17 15:45 Anaerobic Blood Culture - Preliminary Gram Positive Cocci Resulted 04/24/17 12:00 Sputum Endotracheal Acid Fast Stain Pending Received 04/24/17 12:00 Sputum Endotracheal Mycobacterial Culture Pending Received 04/23/17 22:20 Sputum Endotracheal Gram Stain - Final Complete 04/23/17 22:20 Sputum Endotracheal Sputum Culture - Final MODERATE GROWTH NORMAL RESPIRATORY LUKASZ Complete 04/23/17 20:30 Urine Catheterized Urine Legionella Antigen - Final PRESUMPTIVE NEGATIVE FOR LEGIONELLA P... Complete 04/23/17 20:30 Urine Catheterized Urine Streptococcus pneumoniae Antigen (M - Final PRESUMPTIVE NEGATIVE FOR STREPTOCOCCU... Complete Imaging Last Impressions Chest X-Ray 04/25/17 0600 Signed Impressions: Service Date/Time: Tuesday, April 25, 2017 03:57 - CONCLUSION: Some improvement in the aeration of the lungs bilaterally. Donovan Pierce MD Carotid Artery Ultrasound 04/24/17 0000 Signed Impressions: Service Date/Time: Monday, April 24, 2017 12:33 - CONCLUSION: 1. No sonographic or Doppler findings of a hemodynamically significant stenosis in the cervical vessels. No significant plaquing. 2. However, both internal carotid and vertebral artery waveforms show high resistance. This can be seen with distal occlusion or increased intracranial pressures. CTA of the cervical vessels could be performed for further characterization. Nam Amaya MD Brain MRI 04/24/17 Signed Impressions: Service Date/Time: Monday, April 24, 2017 10:27 - CONCLUSION: 1. 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 2. Left parietal lobe infarct containing petechial hemorrhage 3. Scattered deep white matter infarcts in the left frontal lobe. 4. Peripheral left cerebellar infarct 5. Right cerebral mass effect with mild shift. Jd Covington MD Lower Extremity Ultrasound 04/23/17 Signed Impressions: Service Date/Time: Sunday, April 23, 2017 16:26 - CONCLUSION: No DVT is identified within either lower extremity. Lucian Cai MD Head CT 04/23/17 Signed Impressions: Service Date/Time: Sunday, April 23, 2017 21:50 - CONCLUSION: Abnormal area of low density in the left parietal high convexity primarily in the subcortical white matter. It most likely represents an area of vasogenic edema but cytotoxic edema associated with ischemia could have a similar appearance. When patient condition permits consider further characterization with MRI. Lucian Cai MD Chest CT 04/23/17 Signed Impressions: Service Date/Time: Sunday, April 23, 2017 21:54 - CONCLUSION: 1. Severe airspace consolidation bilaterally in a distribution favoring severe pulmonary edema as the etiology. 2. Moderate size right and small left pleural effusion. Lucian Cai MD Abdomen/Pelvis CT 04/23/17 Signed Impressions: Service Date/Time: Sunday, April 23, 2017 21:54 - CONCLUSION: 1. No acute finding is identified within the abdomen or pelvis on this noncontrast examination. 2. There are expected changes associated with the right femoral venous line including surrounding inflammation and mild hemorrhage. 3. Mild hepatomegaly. 4. Please refer to chest CT report for description of the supradiaphragmatic findings. Lucian Cai MD Physical Exam GENERAL: This is a well-nourished, well-developed patient, in no apparent distress. SKIN: Petechial hemorrhages on bilateral feet and some noted on upper extremities. Mottling of skin noted. HEAD: Atraumatic. Normocephalic. No temporal or scalp tenderness. EYES: Pupils unequal reactive. No scleral icterus. No injection or drainage. ENT: Intubated. NECK: Trachea midline. CARDIOVASCULAR: Regular rate and rhythm. RESPIRATORY: Clear to auscultation. Breath sounds equal bilaterally. GASTROINTESTINAL: Abdomen soft, non-tender, nondistended. MUSCULOSKELETAL: Extremities without clubbing, cyanosis, or edema. NEUROLOGICAL: Sedated. Psych cooperative. IV line sites with no e.o infection. Assessment & Plan Remarks Septic Shock with Multi Organ dysfunction syndrome (MODS) Gram positive bacteremia with Endocarditis of aortic valve. Pulm septic emboli, aspiration Pneumonia. Cerebral, Cerebellar septic emboli with some midline shift noted. Left Cerebral septic emboli could be area of cerebritis and abscess. 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 Acute renal failure:sepsis may end up needing HD as is oliguric with high K. Acute metabolic encephalopathy: sepsis, meningitis, infarcts. Elevated CK: possible rhabdo. Elevated liver enzymes: Shock liver, sepsis. Elevated lactic acid. Recs: DC Teflaro IV (No MRSA identified) Continue Cefepime IV (for empiric PSAE coverage) Continue flagyl change to oral (for empiric aspiration PNA coverage) Continue Dapto IV(ASP: Possible VRE as BCX reported as E.faecalis) Monitor CK while on Dapto Follow cultures Follow clinically Palliative care consulted. Prognosis guarded. Critical thinking and decision making. Kristi Red MD Apr 25, 2017 12:12
[2017-04-25 12:50] LABS: APTT (PATIENT) 43.4 SEC (24.3-30.1)
[2017-04-25 12:51] LABS: APTT (PATIENT) 56.9 SEC (24.3-30.1)
--- NOTE | 2017-04-25 13:41 | PD.CONS ---
Consult Service Palliative Care Consult Requested By Dr. Lemons . Primary Care Physician No Primary Care Physician . Reason for Consultation a. To assist with evaluation and management of symptoms including: Dyspnea , encephalopathy b. To assist medical decision maker(s) with: better understanding of current medical conditions; weighing benefits/burdens of medical treatment options; making medical treatment decisions. . HPI History of Present Illness This 36-year-old male, with a past history of IV opiate abuse as well as reported cavitary lesions in the lung a year ago, presented to the emergency department on 04/23/17 after a couple weeks of abdominal discomfort, being on oral antibiotics for a foot infection, and then worsening dyspnea. Initially, the patient was found to be quite dyspneic, with O2 saturations in the 80s even on 100% via nonrebreather. The patient had a long history of substance abuse, including IV use of opiates. In the emergency department, findings included: * Dyspnea, hypoxia * Temp 98.0, pulse 126, respirations 28, blood pressure 130/60 * White count 37.5, hemoglobin 9.9 * INR 1.8 * Lactic acid 13.7 * Sodium 127, creatinine 2.2 * AST 1455, ALT 493 * Chest x-ray with bihilar airspace disease * Ultrasound of the legs without evidence of DVT * CT of the chest revealed severe bilateral airspace disease, possibly consistent with edema, no cavitary lesions were mentioned. * Abdomen/pelvis CT without acute findings * Urine drug screen positive for opiates, amphetamines, benzodiazepines Cultures were obtained, antibiotics were initiated, and the patient was intubated in the emergency department. He was admitted to intensive care with appropriate sedation. 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 In addition, an echocardiogram was consistent with endocarditis, with vegetations on the aortic valve. The patient's creatinine had risen to over 3. There was fever of 101 on this date. On 04/25/17, the patient was now on CCRT, and creatinine was 3.98. In addition , the hepatic failure was worsening, now with AST 17,978 and ALT 4685. The bilirubin was up to 3.1. Neurosurgery saw the patient and discussed the poor prognosis with the patient' s father. Palliative Care was consulted to assist with symptom management, and to enter into discussions with the family regarding the current illnesses, prognosis, and the benefits and burdens of the various treatment choices now.. . Function/Cognitive Trajectory The patient was functioning independently until the current illness. . Review of Systems ROS Limitations: Clinical Condition (intubated, nonverbal; information from records, nursing staff, and patient's father), Intubated Constitutional: DENIES: Weight loss Endocrine: DENIES: Polyuria Eyes: DENIES: Eye inflammation Ears, nose, mouth, throat: DENIES: Epistaxis Respiratory: COMPLAINS OF: Cough, Shortness of breath Cardiovascular: DENIES: Chest pain, Lower Extremity Edema Gastrointestinal: COMPLAINS OF: Abdominal pain (at the time of admission), DENIES: Constipation, Diarrhea, Vomiting Genitourinary: DENIES: Hematuria Musculoskeletal: DENIES: Joint Swelling Integumentary: DENIES: Rash Hematologic/Lymphatics: DENIES: Lymphadenopathy Immunologic/Allergic: DENIES: Urticaria Neurologic: DENIES: Seizures Psychiatric: DENIES: Hallucinations, Agitation Past Family Social History Coded Allergies: No Known Allergies (Unverified , 04/23/17) Past Medical History * IV opiate abuse * Long history of substance abuse * History of positive PPD and reported cavitary lesion of the lung 2015 * NO PRIOR HISTORY of endocarditis . Reported Medications Reported Meds & Active Scripts Active Reported Bactrim (Sulfamethoxazole-Trimethoprim) 400-80 Mg Tab 1 Tab PO BID Clindamycin (Clindamycin HCl) 300 Mg Cap 300 Mg PO Q6H . Current Medications Medications (Trade) Dose Ordered Sig/Elda Route Start Time Stop Time Status Last Admin (Peridex 0.12% Liq) 15 ml BID@08,20 MT 04/23/17 20:00 04/25/17 08:42 Propofol 100 ml @ 2.55 mls/hr TITRATE PRN IV 04/23/17 17:15 04/25/17 05:57 Midazolam HCl 100 ml @ 2 mls/hr TITRATE PRN IV 04/23/17 17:15 04/25/17 03:03 Fentanyl Citrate 250 ml @ 5 mls/hr TITRATE PRN IV 04/23/17 17:15 04/25/17 03:03 Cefepime HCl 2000 mg/Sodium Chloride 100 ml @ 200 mls/hr Q8H IV 04/23/17 20:00 04/25/17 11:25 (NS Flush) 2 ml UNSCH PRN IV FLUSH 04/23/17 17:30 (NS Flush) 2 ml BID IV FLUSH 04/23/17 21:00 04/25/17 09:08 (Tylenol) 650 mg Q6H PRN PO 04/23/17 17:30 (Prevacid Odt) 30 mg DAILY G-TUBE 04/24/17 09:00 04/25/17 08:59 (Tears Naturale Opth Soln) 1 drop TID EACH EYE 04/23/17 18:00 04/25/17 13:06 (Zofran Inj) 4 mg Q6H PRN IV PUSH 04/23/17 17:30 (Duoneb Neb) 1 ampule Q4HR NEB INH 04/23/17 20:00 04/25/17 11:30 (Albuterol Neb) 2.5 mg Q2HR NEB PRN INH 04/23/17 17:30 Miscellaneous Information 1 Q361D XX 04/23/17 17:30 04/23/17 17:30 (Chlorhexidine 2% Cloth) 3 pack Taper DAILY@04 TOP 04/24/17 04:00 04/20/18 03:59 04/25/17 04:00 (Chlorhexidine 2% Cloth) 3 pack UNSCH PRN TOP 04/23/17 17:30 (Lu-Colace) 1 tab BID PO 04/23/17 21:00 04/25/17 08:59 (Milk Of Magnesia Liq) 30 ml Q12H PRN PO 04/23/17 17:30 (Senokot) 17.2 mg Q12H PRN PO 04/23/17 17:30 (Dulcolax Supp) 10 mg DAILY PRN RECTAL 04/23/17 17:30 (Lactulose Liq) 30 ml DAILY PRN PO 04/23/17 17:30 (Chlorhexidine 2% Cloth) 3 pack DAILY@04 TOPICAL 04/24/17 04:00 04/28/17 04:01 (D50w (Vial) Inj) 50 ml UNSCH PRN IV PUSH 04/23/17 18:45 04/24/17 06:22 (Glucagon Inj) 1 mg UNSCH PRN OTHER 04/23/17 18:45 (NovoLIN R SUPPLEMENTAL SCALE) 1 Q6HR SQ 04/24/17 00:00 04/24/17 11:54 Thiamine HCl 100 mg/Sodium Chloride 101 ml @ 101 mls/hr DAILY IV 04/24/17 09:00 04/25/17 08:58 (Theragran) 1 tab DAILY PO 04/24/17 09:00 04/25/17 09:09 (Folate) 1 mg DAILY PO 04/24/17 09:00 04/25/17 08:58 Norepinephrine Bitartrate 250 ml @ 18.75 mls/ hr TITRATE PRN IV 04/24/17 06:00 04/25/17 00:26 Vasopressin 40 units/Dextrose 100 ml @ 6 mls/hr [id number] IV 04/24/17 12:26 Daptomycin 980 mg/ Sodium Chloride 100 ml @ 200 mls/hr Q48H IV 04/24/17 18:00 04/24/17 17:45 Pharmacy Profile Note 0 ml @ 0 mls/hr UNSCH OTHER 04/24/17 13:30 (NS Flush) UNSCH PRN IV FLUSH 04/24/17 13:45 (Heparin Inj) UNSCH PRN IV FLUSH 04/24/17 13:45 (NS Flush) DAILY IV FLUSH 04/25/17 09:00 04/25/17 09:15 (NS Flush) UNSCH PRN IV FLUSH 04/24/17 14:45 Protamine Sulfate 250 mg/Sodium Chloride 250 ml @ 5 mls/hr TITRATE PRN IV 04/24/17 16:30 04/24/17 17:00 Heparin Sodium/ Dextrose 250 ml @ 5 mls/hr TITRATE PRN IV 04/24/17 16:00 04/24/17 17:00 Levetriacetam 250 mg/Sodium Chloride 102.5 ml @ 420 mls/hr Q12H IV 04/24/17 16:00 04/25/17 04:06 Sodium Chloride 1,000 ml @ 0 mls/hr UNSCH PRN OTHER 04/24/17 16:00 (KCl 40 Meq Premix Inj) Add 1 mEq/ Liter of Dialysate WITH DIALYSIS PRN .XX 04/24/17 16:00 Sodium Bicarbonate 75 meq/Sodium Chloride 1,075 ml @ 1,000 mls/hr Q1H5M OTHER 04/24/17 17:00 04/25/17 12:47 (Mannitol Inj) 12.5 gm Q8H IV 04/24/17 21:00 04/25/17 13:11 Sodium Bicarbonate 100 meq/Dextrose 1,100 ml @ 75 mls/hr [id number] IV 04/25/17 09:00 04/25/17 09:07 Family History The patient's mother of lung cancer. The patient's father and sister are alive and well. . Substance Use Tobacco: Long-term use Alcohol: Long-term use Illicits: IV opiate abuse for several years; drug screen also positive for amphetamines . Psychosocial History The patient was born in [place], [place], but was moved here with his family when he was about 2-year-old. He is spent the rest of his life in this area. He was and , and has a 12-year-old son. The patient's other family includes his father, and emergency physician here at this hospital, as well as his adult sister who is a [place] community relations police lieutenant. \\The patient did graduate from high school and then got an AA degree, but had difficulty keeping jobs. . Spiritual/Cultural Factors The patient has not been spiritual or jehovah's witness. . Living Will: Never completed Health Care Surrogate: Never completed Durable Power of [employer]n [employer]: Never completed Family/friends goals: The patient's father, Dr. Anup Gautam, has a clear understanding of the dismal prognosis, and he has requested that we discontinue the dialysis at this time, stop all of the needle sticks and lab work, and entertain no more specialty consultations. He is considering withdrawal of the ventilator in the upcoming day or 2. . Ethical and Legal Issues There are no ethical issues that would impact his care were decision-making at this time. The patient lacks capacity for decision-making and he will not regain that capacity. The patient is unmarried, has no adult children, and his only living parent is his father; the healthcare proxy decision-maker is thus his father. . Physical Exam Vital Signs Date Time Temp Pulse Resp B/P (MAP) Pulse Ox O2 Delivery O2 Flow Rate FiO2 04/25/17 12:00 97.4 93 20 122/58 (79) 99 150/48 (82) 04/25/17 12:00 40 04/25/17 12:00 93 04/25/17 11:31 100 40 04/25/17 10:00 97 04/25/17 08:34 99 40 04/25/17 08:00 97.6 105 20 115/54 (74) 97 123/47 (72) 04/25/17 08:00 105 04/25/17 08:00 40 04/25/17 06:00 100 04/25/17 04:20 97 40 04/25/17 04:00 97.6 99 108/51 (70) 100 127/41 (69) 04/25/17 04:00 102 04/25/17 04:00 40 04/25/17 02:00 104 04/25/17 00:40 98 40 04/25/17 00:26 17 112/55 04/25/17 00:00 110 04/25/17 00:00 40 04/25/17 00:00 99.3 108 28 116/58 (77) 97 04/24/17 22:00 110 04/24/17 21:45 96 40 04/24/17 20:00 40 04/24/17 20:00 107 04/24/17 20:00 99.3 107 30 128/58 (81) 100 102/70 (81) 04/24/17 18:48 114/56 04/24/17 18:40 93/37 04/24/17 18:30 106 88/34 04/24/17 18:20 105 71/34 04/24/17 18:10 105 108/44 04/24/17 18:00 107 110/41 04/24/17 18:00 107 04/24/17 17:45 108 99/31 04/24/17 17:00 113 92/55 04/24/17 16:09 120/34 04/24/17 16:04 96 40 04/24/17 16:00 40 04/24/17 16:00 101.0 109 121/28 (59) 96 04/24/17 16:00 109 04/24/17 15:33 101.0 110 26 138/31 94 17 15:30 111 144/31 04/24/17 15:15 101.0 112 27 148/32 04/24/17 15:00 112 150/29 (69) 100 04/24/17 15:00 112 150/29 04/24/17 14:30 111 142/41 04/24/17 14:00 114 04/24/17 14:00 114 135/35 (68) 99 04/24/17 14:00 114 135/35 04/24/17 13:30 116 142/43 04/25/17 04/26/17 19:00 07:00 Intake Total 1391 ml Output Total 0 ml Balance 1391 ml Intake IV Total 1271 ml Other 120 ml Output Urine Total 0 ml Exam CONSTITUTIONAL/GENERAL: This is an adequately nourished patient, in no apparent distress; on the ventilator in [facility], sedated.. TUBES/LINES/DRAINS: Endotracheal tube, fast catheter in the right neck, art line SKIN: No jaundice, rashes, or lesions. No wounds seen anteriorly. Skin temperature appropriate. Not diaphoretic. HEAD: Atraumatic. Normocephalic. EYES: Pupils about 3 or 4 mm each, somewhat irregularly-shaped, and not reactive to light. No scleral icterus. No injection or drainage. Fundi not examined. ENT: Nose without bleeding or purulent drainage. NECK: Trachea midline. Supple, nontender. No palpable thyroid enlargement or nodularity. CARDIOVASCULAR: Regular rate and rhythm with grade 2 systolic murmur. No JVD. Peripheral pulses symmetric. RESPIRATORY/CHEST: Symmetric, unlabored respirations. A few scattered rales bilateral. GASTROINTESTINAL: Abdomen soft, nondistended. No hepato-splenomegaly, or palpable masses. No guarding. Bowel sounds present. GENITOURINARY: Without palpable bladder distension. Hutchins catheter in place. MUSCULOSKELETAL: Extremities without clubbing, cyanosis, or edema. No joint tenderness or effusion noted. No calf tenderness. No mottling or clubbing. LYMPHATICS: No palpable cervical or supraclavicular adenopathy. NEUROLOGICAL: Unresponsive to voice, touch, or pain PSYCHIATRIC: Unable to evaluate due to clinical condition . Diagnostic Tests Laboratory Laboratory Tests Test 04/23/17 08:30 04/23/17 15:45 04/23/17 16:13 04/23/17 17:20 Nasal Screen MRSA (PCR) MRSA NOT DETECTED (NOT White Blood Count 37.5 TH/MM3 (4.0-11.0) Red Blood Count 3.83 MIL/MM3 (4.50-5.90) Hemoglobin 9.9 GM/DL (13.0-17.0) Hematocrit 31.8 % (39.0-51.0) Mean Corpuscular Volume 83.2 FL (80.0-100.0) Mean Corpuscular Hemoglobin 25.9 PG (27.0-34.0) Mean Corpuscular Hemoglobin Concent 31.1 % (32.0-36.0) Red Cell Distribution Width 16.2 % (11.6-17.2) Platelet Count 206 TH/MM3 (150-450) Mean Platelet Volume 10.1 FL (7.0-11.0) Neutrophils (%) (Auto) 83.6 % (16.0-70.0) Lymphocytes (%) (Auto) 10.8 % (9.0-44.0) Monocytes (%) (Auto) 4.6 % (0.0-8.0) Eosinophils (%) (Auto) 0.2 % (0.0-4.0) Basophils (%) (Auto) 0.8 % (0.0-2.0) Neutrophils # (Auto) 31.4 TH/MM3 (1.8-7.7) Lymphocytes # (Auto) 4.1 TH/MM3 (1.0-4.8) Monocytes # (Auto) 1.7 TH/MM3 (0-0.9) Eosinophils # (Auto) 0.1 TH/MM3 (0-0.4) Basophils # (Auto) 0.3 TH/MM3 (0-0.2) CBC Comment AUTO DIFF Differential Total Cells Counted 100 Neutrophils % (Manual) 83 % (16-70) Band Neutrophils % 2 % (0-6) Lymphocytes % 10 % (9-44) Monocytes % 3 % (0-8) Neutrophils # (Manual) 32.6 TH/MM3 (1.8-7.7) Myelocytes 2 % (0-0) Nucleated Red Blood Cells 1 /100 WBC (0-0) Differential Comment FINAL DIFF MANUAL Platelet Estimate NORMAL (NORMAL) Platelet Morphology Comment NORMAL (NORMAL) Fabian Cells 1+ (NORMAL) Keratocytes 1+ (NORMAL) Prothrombin Time 20.7 SEC (9.8-11.6) Prothromb Time International Ratio 1.8 RATIO Activated Partial Thromboplast Time 29.6 SEC (24.3-30.1) Fibrinogen 59 mg/dL (227-377) Urine Color YELLOW (YELLW/STRAW) Urine Turbidity HAZY (CLEAR) Urine pH 5.0 (5.0-8.5) Urine Specific [place] 1.018 (1.002-1.035) Urine Protein 30 mg/dL (NEG-TRACE) Urine Glucose (UA) 70 mg/dL (NEG) Urine Ketones NEG mg/dL (NEG) Urine Occult Blood MOD (NEG) Urine Nitrite NEG (NEG) Urine Bilirubin NEG (NEG) Urine Urobilinogen LESS THAN 2.0 MG/DL (LESS Urine Leukocyte Esterase NEG (NEG) Urine WBC 1 /hpf (0-5) Urine Amorphous Sediment RARE Urine Bacteria RARE /hpf (NONE) Urine Hyaline Casts 4 /lpf (RARE) Urine Granular Casts 9 /lpf (NONE) Urine Mucus FEW /lpf (OCC) Microscopic Urinalysis Comment CULT NOT INDICATED Urine Eosinophils NONE SEEN /HPF (NONE SEEN) Urine Random Creatinine 123.5 MG/DL Urine Random Sodium 7 MEQ/L Lactic Acid Level 13.7 mmol/L (0.4-2.0) Blood Gas Puncture Site LT RADIAL Blood Gas Patient Temperature 98.6 Blood Gas HCO3 11 mmol/L (22-26) Blood Gas Base Excess -15.7 mmol/L (-2-2) Blood Gas Oxygen Saturation 97 % (90-100) Arterial Blood pH 7.19 (7.380-7.420) Arterial Blood Partial Pressure CO2 30 mmHg (38-42) Arterial Blood Partial Pressure O2 184 mmHG (61-120) Arterial Blood Oxygen Content 13.0 Vol % (12.0-20.0) Arterial Blood Carboxyhemoglobin 0.9 % (0-4) Arterial Blood Methemoglobin 0.4 % (0-2) Blood Gas Hemoglobin 9.2 G/DL (12.0-16.0) Oxygen Delivery Device VENTILATOR Blood Gas Ventilator Setting AC 14/550/5+ Blood Gas Inspired Oxygen 100 % Blood Urea Nitrogen 35 MG/DL (7-18) Creatinine 2.25 MG/DL (0.60-1.30) Random Glucose 105 MG/DL (74-106) Total Protein 6.8 GM/DL (6.4-8.2) Albumin 1.8 GM/DL (3.4-5.0) Calcium Level 7.3 MG/DL (8.5-10.1) Alkaline Phosphatase 139 U/L (45-117) Aspartate Amino Transf (AST/SGOT) 1455 U/L (15-37) Alanine Aminotransferase (ALT/SGPT) 493 U/L (12-78) Total Bilirubin 0.9 MG/DL (0.2-1.0) Sodium Level 127 MEQ/L (136-145) Potassium Level 5.6 MEQ/L (3.5-5.1) Chloride Level 93 MEQ/L (98-107) Carbon Dioxide Level 16.0 MEQ/L (21.0-32.0) Anion Gap 18 MEQ/L (5-15) Estimat Glomerular Filtration Rate 33 ML/MIN (>89) Protein Corrected Calcium 7.5 MG/DL (8.5-10.1) Troponin I 5.29 NG/ML (0.02-0.05) Salicylates Level LESS THAN 1.7 MG/DL Test 04/23/17 17:31 04/23/17 20:30 04/23/17 22:15 04/24/17 04:00 Lactic Acid Level 9.0 mmol/L (0.4-2.0) 7.2 mmol/L (0.4-2.0) 12.7 mmol/L (0.4-2.0) Urine Opiates Screen POS (NEG) Urine Barbiturates Screen NEG (NEG) Urine Amphetamines Screen POS (NEG) Urine Benzodiazepines Screen POS (NEG) Urine Cocaine Screen NEG (NEG) Urine Cannabinoids Screen NEG (NEG) Potassium Level 5.4 MEQ/L (3.5-5.1) 6.3 MEQ/L (3.5-5.1) Phosphorus Level 8.2 MG/DL (2.5-4.9) 9.0 MG/DL (2.5-4.9) Magnesium Level 2.6 MG/DL (1.5-2.5) 2.4 MG/DL (1.5-2.5) Ammonia 19 MCMOL/L (11-32) Total Creatine Kinase 1689 U/L (39-308) Creatine Kinase MB 15.7 NG/ML (0.5-3.6) Creatine Kinase MB % 0.9 % (0.0-4.0) Troponin I 4.60 NG/ML (0.02-0.05) 4.28 NG/ML (0.02-0.05) Amylase Level 136 U/L (25-115) Lipase 181 U/L (73-393) Thyroid Stimulating Hormone 3rd Gen 0.854 uIU/ML (0.358-3.740) Acetaminophen Level LESS THAN 2.0 MCG/ML Ethyl Alcohol Level LESS THAN 3 MG/DL (0-5) B-Hydroxybutyrate 0.16 MMOL/L (0.00-0.39) White Blood Count 23.3 TH/MM3 (4.0-11.0) Red Blood Count 3.01 MIL/MM3 (4.50-5.90) Hemoglobin 8.0 GM/DL (13.0-17.0) Hematocrit 24.7 % (39.0-51.0) Mean Corpuscular Volume 82.1 FL (80.0-100.0) Mean Corpuscular Hemoglobin 26.5 PG (27.0-34.0) Mean Corpuscular Hemoglobin Concent 32.3 % (32.0-36.0) Red Cell Distribution Width 16.0 % (11.6-17.2) Platelet Count 135 TH/MM3 (150-450) Mean Platelet Volume 9.6 FL (7.0-11.0) Neutrophils (%) (Auto) 86.2 % (16.0-70.0) Lymphocytes (%) (Auto) 7.6 % (9.0-44.0) Monocytes (%) (Auto) 5.9 % (0.0-8.0) Eosinophils (%) (Auto) 0.0 % (0.0-4.0) Basophils (%) (Auto) 0.3 % (0.0-2.0) Neutrophils # (Auto) 20.0 TH/MM3 (1.8-7.7) Lymphocytes # (Auto) 1.8 TH/MM3 (1.0-4.8) Monocytes # (Auto) 1.4 TH/MM3 (0-0.9) Eosinophils # (Auto) 0.0 TH/MM3 (0-0.4) Basophils # (Auto) 0.1 TH/MM3 (0-0.2) CBC Comment AUTO DIFF Differential Total Cells Counted 100 Neutrophils % (Manual) 88 % (16-70) Band Neutrophils % 2 % (0-6) Lymphocytes % 3 % (9-44) Monocytes % 4 % (0-8) Neutrophils # (Manual) 21.7 TH/MM3 (1.8-7.7) Myelocytes 3 % (0-0) Differential Comment FINAL DIFF MANUAL Platelet Estimate LOW (NORMAL) Platelet Morphology Comment NORMAL (NORMAL) Ovalocytes 1+ (NORMAL) Fabian Cells 1+ (NORMAL) Prothrombin Time 27.1 SEC (9.8-11.6) Prothromb Time International Ratio 2.4 RATIO Activated Partial Thromboplast Time 38.0 SEC (24.3-30.1) Blood Urea Nitrogen 47 MG/DL (7-18) Creatinine 3.09 MG/DL (0.60-1.30) Random Glucose 78 MG/DL (74-106) Total Protein 5.0 GM/DL (6.4-8.2) Albumin 1.2 GM/DL (3.4-5.0) Calcium Level 5.7 MG/DL (8.5-10.1) Alkaline Phosphatase 103 U/L (45-117) Aspartate Amino Transf (AST/SGOT) 5358 U/L (15-37) Alanine Aminotransferase (ALT/SGPT) 1668 U/L (12-78) Total Bilirubin 1.3 MG/DL (0.2-1.0) Sodium Level 134 MEQ/L (136-145) Chloride Level 99 MEQ/L (98-107) Carbon Dioxide Level 14.6 MEQ/L (21.0-32.0) Anion Gap 20 MEQ/L (5-15) Estimat Glomerular Filtration Rate 23 ML/MIN (>89) Protein Corrected Calcium 6.6 MG/DL (8.5-10.1) Test 04/24/17 05:20 04/24/17 09:30 04/24/17 12:00 04/24/17 13:00 Blood Gas Puncture Site RT FEMORAL ART LINE Blood Gas Patient Temperature 98.6 98.6 Blood Gas HCO3 8 mmol/L (22-26) 15 mmol/L (22-26) Blood Gas Base Excess -18.6 mmol/L (-2-2) -9.2 mmol/L (-2-2) Blood Gas Oxygen Saturation 95 % (90-100) 92 % (90-100) Arterial Blood pH 7.21 (7.380-7.420) 7.37 (7.380-7.420) Arterial Blood Partial Pressure CO2 21 mmHg (38-42) 27 mmHg (38-42) Arterial Blood Partial Pressure O2 134 mmHg (61-120) 81 mmHg (61-120) Arterial Blood Oxygen Content 11.5 Vol % (12.0-20.0) 11.6 Vol % (12.0-20.0) Arterial Blood Carboxyhemoglobin 0.4 % (0-4) 1.0 % (0-4) Arterial Blood Methemoglobin 1.2 % (0-2) 1.1 % (0-2) Blood Gas Hemoglobin 8.4 G/DL (12.0-16.0) 8.9 G/DL (12.0-16.0) Oxygen Delivery Device VENTILATOR VENTILATOR Blood Gas Ventilator Setting PRVC/AC PRVC/AC 550/20 Blood Gas Inspired Oxygen 40 % 40 % Potassium Level 5.7 MEQ/L (3.5-5.1) Procalcitonin 21.44 ng/mL (0.00-0.08) Prothrombin Time 24.1 SEC (9.8-11.6) Prothromb Time International Ratio 2.1 RATIO Activated Partial Thromboplast Time 35.9 SEC (24.3-30.1) Fibrinogen 177 mg/dL (227-377) M. tuberculosis Complex DNA (PCR) NOT DETECTED (NOT DETECT) Test 04/24/17 15:00 04/24/17 16:30 04/24/17 18:15 04/24/17 20:00 White Blood Count 24.7 TH/MM3 (4.0-11.0) Red Blood Count 3.16 MIL/MM3 (4.50-5.90) Hemoglobin 8.3 GM/DL (13.0-17.0) Hematocrit 25.2 % (39.0-51.0) Mean Corpuscular Volume 80.0 FL (80.0-100.0) Mean Corpuscular Hemoglobin 26.2 PG (27.0-34.0) Mean Corpuscular Hemoglobin Concent 32.8 % (32.0-36.0) Red Cell Distribution Width 15.7 % (11.6-17.2) Platelet Count 109 TH/MM3 (150-450) Mean Platelet Volume 10.2 FL (7.0-11.0) Prothrombin Time 24.9 SEC (9.8-11.6) Prothromb Time International Ratio 2.2 RATIO Activated Partial Thromboplast Time 38.0 SEC (24.3-30.1) 37.3 SEC (24.3-30.1) 42.0 SEC (24.3-30.1) Fibrinogen 200 mg/dL (227-377) Blood Urea Nitrogen 63 MG/DL (7-18) Creatinine 3.92 MG/DL (0.60-1.30) Random Glucose 163 MG/DL (74-106) Total Protein 5.4 GM/DL (6.4-8.2) Calcium Level 5.9 MG/DL (8.5-10.1) Phosphorus Level 9.1 MG/DL (2.5-4.9) Magnesium Level 2.6 MG/DL (1.5-2.5) Sodium Level 134 MEQ/L (136-145) Potassium Level 5.2 MEQ/L (3.5-5.1) Chloride Level 93 MEQ/L (98-107) Carbon Dioxide Level 20.2 MEQ/L (21.0-32.0) Anion Gap 21 MEQ/L (5-15) Estimat Glomerular Filtration Rate 18 ML/MIN (>89) Protein Corrected Calcium 6.6 MG/DL (8.5-10.1) Lactic Acid Level 10.5 mmol/L (0.4-2.0) Test 04/24/17 23:19 04/24/17 23:30 04/25/17 01:50 04/25/17 01:55 Sodium Level 138 MEQ/L (136-145) 137 MEQ/L (136-145) Serum Osmolality 307 MOSM/KG (275-295) 311 MOSM/KG (275-295) Activated Partial Thromboplast Time 41.8 SEC (24.3-30.1) 41.1 SEC (24.3-30.1) 47.8 SEC (24.3-30.1) White Blood Count 22.1 TH/MM3 (4.0-11.0) Red Blood Count 3.06 MIL/MM3 (4.50-5.90) Hemoglobin 7.8 GM/DL (13.0-17.0) Hematocrit 24.3 % (39.0-51.0) Mean Corpuscular Volume 79.5 FL (80.0-100.0) Mean Corpuscular Hemoglobin 25.5 PG (27.0-34.0) Mean Corpuscular Hemoglobin Concent 32.1 % (32.0-36.0) Red Cell Distribution Width 15.7 % (11.6-17.2) Platelet Count 109 TH/MM3 (150-450) Mean Platelet Volume 9.6 FL (7.0-11.0) Neutrophils (%) (Auto) 90.4 % (16.0-70.0) Lymphocytes (%) (Auto) 5.0 % (9.0-44.0) Monocytes (%) (Auto) 4.4 % (0.0-8.0) Eosinophils (%) (Auto) 0.0 % (0.0-4.0) Basophils (%) (Auto) 0.2 % (0.0-2.0) Neutrophils # (Auto) 19.9 TH/MM3 (1.8-7.7) Lymphocytes # (Auto) 1.1 TH/MM3 (1.0-4.8) Monocytes # (Auto) 1.0 TH/MM3 (0-0.9) Eosinophils # (Auto) 0.0 TH/MM3 (0-0.4) Basophils # (Auto) 0.0 TH/MM3 (0-0.2) CBC Comment AUTO DIFF Differential Comment AUTO DIFF CONFIRMED Prothrombin Time 26.1 SEC (9.8-11.6) Prothromb Time International Ratio 2.3 RATIO Fibrinogen 133 mg/dL (227-377) Blood Urea Nitrogen 58 MG/DL (7-18) Creatinine 3.98 MG/DL (0.60-1.30) Random Glucose 77 MG/DL (74-106) Total Protein 5.5 GM/DL (6.4-8.2) Albumin 1.7 GM/DL (3.4-5.0) Calcium Level LESS THAN 5.0 MG/DL Phosphorus Level 8.5 MG/DL (2.5-4.9) Magnesium Level 2.2 MG/DL (1.5-2.5) Alkaline Phosphatase 176 U/L (45-117) Aspartate Amino Transf (AST/SGOT) 63851 U/L (15-37) Alanine Aminotransferase (ALT/SGPT) 4685 U/L (12-78) Total Bilirubin 3.1 MG/DL (0.2-1.0) Potassium Level 4.3 MEQ/L (3.5-5.1) Chloride Level 92 MEQ/L (98-107) Carbon Dioxide Level 23.0 MEQ/L (21.0-32.0) Anion Gap 22 MEQ/L (5-15) Estimat Glomerular Filtration Rate 17 ML/MIN (>89) Lactic Acid Level 12.6 mmol/L (0.4-2.0) Protein Corrected Calcium 5.6 MG/DL (8.5-10.1) Ammonia 34 MCMOL/L (11-32) Total Creatine Kinase 5015 U/L (39-308) Creatine Kinase MB 30.9 NG/ML (0.5-3.6) Creatine Kinase MB % 0.6 % (0.0-4.0) Test 04/25/17 05:00 04/25/17 05:39 04/25/17 08:10 04/25/17 09:00 Activated Partial Thromboplast Time 42.7 SEC (24.3-30.1) 42.5 SEC (24.3-30.1) 56.5 SEC (24.3-30.1) Blood Gas Puncture Site ART LINE Blood Gas Patient Temperature 98.6 Blood Gas HCO3 19 mmol/L (22-26) Blood Gas Base Excess -3.9 mmol/L (-2-2) Blood Gas Oxygen Saturation 95 % (90-100) Arterial Blood pH 7.45 (7.380-7.420) Arterial Blood Partial Pressure CO2 28 mmHg (38-42) Arterial Blood Partial Pressure O2 113 mmHg (61-120) Arterial Blood Oxygen Content 11.3 Vol % (12.0-20.0) Arterial Blood Carboxyhemoglobin 1.2 % (0-4) Arterial Blood Methemoglobin 1.4 % (0-2) Blood Gas Hemoglobin 8.3 G/DL (12.0-16.0) Oxygen Delivery Device VENTILATOR Blood Gas Ventilator Setting [facility]/AC Blood Gas Inspired Oxygen 40 % Test 04/25/17 10:00 04/25/17 11:00 04/25/17 11:30 04/25/17 12:12 Activated Partial Thromboplast Time 42.9 SEC (24.3-30.1) 43.4 SEC (24.3-30.1) 56.9 SEC (24.3-30.1) Result Diagram: 04/25/17 0150 04/25/17 0150 Microbiology Microbiology Date/Time Source Procedure Growth Status 04/25/17 05:30 Blood Peripheral Aerobic Blood Culture Pending Received 04/25/17 05:30 Blood Peripheral Anaerobic Blood Culture Pending Received 04/24/17 11:51 Blood Peripheral Aerobic Blood Culture - Preliminary Gram Positive Cocci Resulted 04/24/17 11:51 Anaerobic Blood Culture - Preliminary Gram Positive Cocci Resulted 04/23/17 15:50 Blood Peripheral Aerobic Blood Culture - Final Enterococcus Faecalis Complete 04/23/17 15:50 Anaerobic Blood Culture - Final Enterococcus Faecalis Complete 04/23/17 15:45 Blood Peripheral Aerobic Blood Culture - Preliminary Enterococcus Faecalis Resulted 04/23/17 15:45 Anaerobic Blood Culture - Preliminary Enterococcus Faecalis Resulted 04/24/17 12:00 Sputum Endotracheal Acid Fast Stain Pending Received 04/24/17 12:00 Sputum Endotracheal Mycobacterial Culture Pending Received 04/23/17 22:20 Sputum Endotracheal Gram Stain - Final Complete 04/23/17 22:20 Sputum Endotracheal Sputum Culture - Final MODERATE GROWTH NORMAL RESPIRATORY LUKASZ Complete 04/23/17 20:30 Urine Catheterized Urine Legionella Antigen - Final PRESUMPTIVE NEGATIVE FOR LEGIONELLA P... Complete 04/23/17 20:30 Urine Catheterized Urine Streptococcus pneumoniae Antigen (M - Final PRESUMPTIVE NEGATIVE FOR STREPTOCOCCU... Complete Imaging Last Impressions Chest X-Ray 04/25/17 0600 Signed Impressions: Service Date/Time: Tuesday, April 25, 2017 03:57 - CONCLUSION: Some improvement in the aeration of the lungs bilaterally. Donovan Pierce MD Carotid Artery Ultrasound 04/24/17 0000 Signed Impressions: Service Date/Time: Monday, April 24, 2017 12:33 - CONCLUSION: 1. No sonographic or Doppler findings of a hemodynamically significant stenosis in the cervical vessels. No significant plaquing. 2. However, both internal carotid and vertebral artery waveforms show high resistance. This can be seen with distal occlusion or increased intracranial pressures. CTA of the cervical vessels could be performed for further characterization. Nam Amaya MD Brain MRI 04/24/17 0000 Signed Impressions: Service Date/Time: Monday, April 24, 2017 10:27 - CONCLUSION: 1. 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 2. Left parietal lobe infarct containing petechial hemorrhage 3. Scattered deep white matter infarcts in the left frontal lobe. 4. Peripheral left cerebellar infarct 5. Right cerebral mass effect with mild shift. Jd Covington MD Lower Extremity Ultrasound 04/23/17 0000 Signed Impressions: Service Date/Time: Sunday, April 23, 2017 16:26 - CONCLUSION: No DVT is identified within either lower extremity. Lucian Cai MD Head CT 04/23/17 0000 Signed Impressions: Service Date/Time: Sunday, April 23, 2017 21:50 - CONCLUSION: Abnormal area of low density in the left parietal high convexity primarily in the subcortical white matter. It most likely represents an area of vasogenic edema but cytotoxic edema associated with ischemia could have a similar appearance. When patient condition permits consider further characterization with MRI. Lucian Cai MD Chest CT 04/23/17 0000 Signed Impressions: Service Date/Time: Sunday, April 23, 2017 21:54 - CONCLUSION: 1. Severe airspace consolidation bilaterally in a distribution favoring severe pulmonary edema as the etiology. 2. Moderate size right and small left pleural effusion. Lucian Cai MD Abdomen/Pelvis CT 04/23/17 0000 Signed Impressions: Service Date/Time: Sunday, April 23, 2017 21:54 - CONCLUSION: 1. No acute finding is identified within the abdomen or pelvis on this noncontrast examination. 2. There are expected changes associated with the right femoral venous line including surrounding inflammation and mild hemorrhage. 3. Mild hepatomegaly. 4. Please refer to chest CT report for description of the supradiaphragmatic findings. Lucian Cai MD Procedures INTUBATION 04/23/17 Vas catheter 04/24/17 . Patient/Family Conference Present at Family Conference: The patient's father, Dr. Anup Gautam . Family Conference Time (mins): 44 Family Conference Location: Consult Room Issues Discussed: * Palliative care role, purpose, approach * Additional medical, psychosocial, and spiritual history * Patients general health, functional status, and cognitive changes in the months leading up to the current hospitalization * Patient/family understanding of the current medical problems * Patient/family understanding of prognosis * Patients goals of care as best understood from advance directives and/or conversations and/or values * Current medical treatment options and benefits/burdens of those options * Likely scenarios comparing ongoing aggressive care with a transition to comfort measures only * Questions answered to the best of my ability * Palliative care contact information provided The patient's father, Dr. Anup Gautam, has a clear understanding of the dismal prognosis, and he has requested that we discontinue the dialysis at this time, stop all of the needle sticks and lab work, and entertain no more specialty consultations. He is considering withdrawal of the ventilator in the upcoming day or 2. . Assessment and Plan Disease Oriented Problem List: (1) multisystem organ failure (neurologic, respiratory, hepatic, renal) (2) multiple ischemic strokes (3) endocarditis, aortic valve, with apparent emboli (4) history of IV drug abuse (5) history of positive PPD and cavitary lung lesion, not visible on current CT scan (6) sepsis (7) anemia Symptom Scale: (1) pain 0-10 Scale: Unable to quantify (2) encephalopathy 0-10 Scale: Unable to quantify Pertinent Non-Medical Issues Psychosocial: Born in [place], grew up here, IV substance abuse much of his life. , one 12-year-old son. Spiritual: He is not spiritual or jehovah's witness Legal: The patient lacks capacity for decision-making and he will not regain that capacity. The patient is unmarried, has no adult children, and his only living parent is his father; the healthcare proxy decision-maker is thus his father. Ethical issues impacting care: None . Important Contacts Father: Dr. Anup Gautam [phone] . Prognosis This patient is terminal, with devastating brain injury as well as failure of lungs, liver, kidneys. . Code Status: No Code Plan * DO NOT RESUSCITATE * DECISION-MAKING: The patient is unmarried, has no adult children, and his only living parent is his father; the healthcare proxy decision-maker is thus his father. * GOALS: The patient's father, Dr. Anup Gautam, has a clear understanding of the dismal prognosis, and he has requested that we discontinue the dialysis at this time, stop all of the needle sticks and lab work, and entertain no more specialty consultations. He is considering withdrawal of the ventilator in the upcoming day or 2. * SYMPTOMS: The patient's encephalopathy is profound and not treatable. It is difficult to say if the patient has any pain or discomfort at this time, but he does remain on appropriate sedation in the [facility]. * Discussed with Dr. Sy, who will initiate the cessation of dialysis and any needle sticks/lab work. * Palliative Care will continue to follow the patient during this hospitalization. . Time Spent Total Floor Time (mins): 79 Face to Face Time (mins): 22 >50% Counseling/Coord of Care: Yes (d/w Dr. Sy and w RN) Thank you for the opportunity to participate in the care of Mr. Gautam. Attestation To help prompt me to consider important information that might be impacting today's encounter and assessment, information from prior notes written by myself or my colleagues may have been "brought forward" into today's note. My signature on this note, however, is an attestation that I personally performed the exam, history, and/or decision-making noted today, and, unless otherwise indicated, the interactions with patient, family, and staff as well as the review of records all occurred today. I also attest that the listed assessment and stated plan reflect my best clinical judgment today based on the combination of historical information, prior notes, and today's exam/ interactions. When time spent is documented, it refers only to time spent today by the signer, or if indicated, combined time spent today by collaborating physician/nurse practitioner. Simona Warner MD Apr 25, 2017 13:41
--- NOTE | 2017-04-25 13:53 | HHI.NPPN ---
Subjective History of Present Illness 36 year old male with IVDA, AV Endocarditis, Septic emboli, Rt ICA occlusion, CVA, ARF, on CRRT/Vent Objective Data Data 04/25/17 04/26/17 19:00 07:00 Intake Total 1391 ml Output Total 0 ml Balance 1391 ml Intake IV Total 1271 ml Other 120 ml Output Urine Total 0 ml Vital Signs Date Time Temp Pulse Resp B/P (MAP) Pulse Ox O2 Delivery O2 Flow Rate FiO2 04/25/17 12:00 97.4 93 20 122/58 (79) 99 150/48 (82) 04/25/17 12:00 40 04/25/17 12:00 93 04/25/17 11:31 100 40 04/25/17 10:00 97 04/25/17 08:34 99 40 04/25/17 08:00 97.6 105 20 115/54 (74) 97 123/47 (72) 04/25/17 08:00 105 04/25/17 08:00 40 04/25/17 06:00 100 04/25/17 04:20 97 40 04/25/17 04:00 97.6 99 108/51 (70) 100 127/41 (69) 04/25/17 04:00 102 04/25/17 04:00 40 04/25/17 02:00 104 04/25/17 00:40 98 40 04/25/17 00:26 17 112/55 04/25/17 00:00 110 04/25/17 00:00 40 04/25/17 00:00 99.3 108 28 116/58 (77) 97 04/24/17 22:00 110 04/24/17 21:45 96 40 04/24/17 20:00 40 04/24/17 20:00 107 04/24/17 20:00 99.3 107 30 128/58 (81) 100 102/70 (81) 04/24/17 18:48 114/56 04/24/17 18:40 93/37 04/24/17 18:30 106 88/34 04/24/17 18:20 105 71/34 04/24/17 18:10 105 108/44 04/24/17 18:00 107 110/41 04/24/17 18:00 107 04/24/17 17:45 108 99/31 04/24/17 17:00 113 92/55 04/24/17 16:09 120/34 04/24/17 16:04 96 40 04/24/17 16:00 40 04/24/17 16:00 101.0 109 121/28 (59) 96 04/24/17 16:00 109 04/24/17 15:33 101.0 110 26 138/31 94 04/24/17 15:30 111 144/31 04/24/17 15:15 101.0 112 27 148/32 04/24/17 15:00 112 150/29 (69) 100 04/24/17 15:00 112 150/29 04/24/17 14:30 111 142/41 04/24/17 14:00 114 04/24/17 14:00 114 135/35 (68) 99 04/24/17 14:00 114 135/35 -: 04/25/17 0150 04/25/17 0150 Microbiology 04/25/17 Aerobic Blood Culture, Received Pending 04/25/17 Anaerobic Blood Culture, Received Pending Physical Exam General Appearance: Well Developed Neck Neck Exam: Trachea Midline Neck Remarks intubated Pulmonary Resp Exam: Rhonchi, Decreased Bases Cardiology CV Exam: Regular Gastrointestinal/Abdomen GI Exam: Soft, Non-Tender, Bowel Sounds Hypoactive Extremeties Extremities Exam: Trace Edema Assessment/Plan Problem List: (1) Acute kidney injury ICD Codes: N17.9 - Acute kidney failure, unspecified Status: Acute Plan: This is likely due to acute tubular necrosis from septic shock started CRRT yesterday, Acidosis has improved Continue to observe His prognosis is poor due to multiple strokes of concern is the right massive ischemic stroke with occlusion of right internal carotid artery His father is a MD and decided to with hold CRRT and aggressive care possible withdrawal planned for tomorrow Nephrology to sign off (2) Septic shock ICD Codes: A41.9 - Sepsis, unspecified organism; R65.21 - Severe sepsis with septic shock Plan: Patient is co-managed with critical care (3) Hyperkalemia ICD Codes: E87.5 - Hyperkalemia Plan: CRRT will be stopped on family request (4) Lactic acid acidosis ICD Codes: E87.2 - Acidosis Plan: As above (5) Transaminitis ICD Codes: R74.0 - Nonspecific elevation of levels of transaminase and lactic acid dehydrogenase [LDH] Plan: Due to shock/ sepsis Chelsea Jaimes MD Apr 25, 2017 13:53
--- NOTE | 2017-04-25 17:45 | MG ---
cc: RAGHU BAEZA Lab No: Date: 04/24/2017 Age: Sex: M Race: TEST NUMBER [id number] TECHNIQUE This is a 17 channel EEG. DESCRIPTION The background rhythm reveals generalized slowing in the theta frequency at 6 Hz. Amplitude is roughly 20-30 microvolts. There are no lateralizing features. There are no epileptiform discharges present. Photic stimulation does not elicit a driving response. INTERPRETATION Abnormal study consistent with a mild encephalopathy. MD CELINE Dillon/KK /4:59 PM /5:45 PM
[2017-04-25] MEDS: VASOPRESSIN INJ 40 UNITS in DEXTROSE 5% IN WATER 100ML INJ 98 ML IV SCH ×4 (18:22→23:18)
[2017-04-25 23:42] LABS: CKMB 33.1 NG/ML (0.5-3.6)
[2017-04-26] VITALS (11 sets, daily range): BP systolic 117–172; BP diastolic 28–65; PULSE 112–128; RESP 20; TEMP 102.9–107.5; O2SAT 97–100
[2017-04-26] MEDS: RESP: ALBUTEROL 2.5 MG/IPRATROPIUM 0.5 MG NEB (SCH) INH ×3 (00:15→08:12)
[2017-04-26] MEDS: SODIUM BICARBONATE 8.4% INJ 100 MEQ in DEXTROSE 5% IN WATE 1000ML INJ 1,000 ML IV SCH ×2 (00:22)
[2017-04-26 01:28] LABS: BLOOD GAS BASE EXCESS 6.7 mmol/L (-2-2); BLOOD GAS CARBOXYHEMOGLOBIN 1.5 % (0-4); BLOOD GAS HCO3 30 mmol/L (22-26); BLOOD GAS METHEMOGLOBIN 0.7 % (0-2); BLOOD GAS O2 HGB SATURATION 90 % (90-100); BLOOD GAS OXYGEN CONTENT 9.7 Vol % (12.0-20.0); BLOOD GAS PCO2 41 mmHg (38-42); BLOOD GAS PO2 67 mmHG (61-120); BLOOD GAS TOTAL HGB 7.6 G/DL (12.0-16.0); CRITICAL VALUE NO; DRAW SITE ALINE; FIO2 80 %; OXYGEN DEVICE VENTILATOR; STAT NO; TEMP CORR TO 98.6; ULNAR PULSE PRESENT; VENT SETTINGS PRVC20/550/+8/0.9
[2017-04-26] MEDS: CHLORHEXIDINE GLUCONATE 2 % 1 PACK (2 CLOTHS)(taper/protocol) TOPICAL SCH (04:00)
[2017-04-26] MEDS: CHLORHEXIDINE GLUCONATE 2 % 1 PACK (2 CLOTHS) TOP SCH (04:00)
[2017-04-26] MEDS: levETIRAcetam INJ 250 MG in SODIUM CHLORIDE 0.9% INJ 100 ML IV SCH (04:19)
[2017-04-26 05:19] LABS: INTERNATIONAL NORMALIZED RATIO 4.7 RATIO
[2017-04-26] MEDS: MANNITOL 12.5 GM/50 ML VIAL IV SCH (05:23)
[2017-04-26 06:11] LABS: VANCOMYCIN TROUGH 17.8 MCG/ML (5.0-10.0)
--- NOTE | 2017-04-26 07:17 | HHI.CCPN ---
Subjective Remarks/Hospital Course This is a 36-year-old male. He admission 04/23/2017. Past mesentery history is defined as prior IV drug use, Mycobacterium diagnosis untreated and bilateral lower extremity cellulitis. Today he presents to [place] ED in acute hypercapnic hypoxic respiratory distress. According to records, prior to intubation patient was on nonrebreather with saturations in the mid 80s. 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 Pt has been having abdominal pain as well with fever, vomiting. Has been having bilateral lower extremity edema for 2 weeks. Pt has been on Bactrim and clindamycin for a foot infection. Patient was intubated with a 7.5 ET tube after receiving 20 mg etomidate 100 mg succinylcholine. Patient has significant respiratory and anion gap metabolic acidosis on his ABG. Chest x-ray showed bilateral upper lobe infiltrates versus pneumonia versus edema versus other. Ultrasound bilateral lower extremities revealed no DVT. CT thorax currently ordered along with head, abdomen and pelvis. Patient had a significant leukocytosis of 37,000. Anemia with a hemoglobin 10. Also pertinent, Patient elevated creatinine around 2.2. Elevated potassium 5.7. Elevated transaminases. With an AST in the 1400s ALT in the 500s. Low sodium. Elevated troponin. EKG and T echocardiogram is currently pending. Patient did received piperacillin/tazobactam and vancomycin in the ED. Subjective 04/24: Noted imaging overnight. MRI brain today revealed right ICA occlusion, right parietal lobe mass/abscess with hemorrhage, right frontal locate right cerebellar and right triple masses noted. There is a 4 mm shift right to left due to edema. Patient also likely has valvular endocarditis, lactic acidosis, acute kidney injury currently oliguric and acute liver failure. 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 Discussed with Dr. Gautam. 04/25 Patient is sedated with Diprivan, Versed and Fentanyl drips, Levophed down 4 mics. On CCRT and bicarb drip. Patient was hypoglycemic this morning with BS 20 given 1 amp D50. He was noted to have unequal pupil size CT brain ordered however after discussion with patient's father Dr. Maza he would like to hold off on it Lactic acid 12.6.. 04/26 Patient remains intubated off sedation unresponsive. On Vasopressin 0.04 mics, Levo 2 mics and bicarb drip. Spiked fever with T 103.6 early this morning. CRRT and blood work d/c yesterday per patient's dad (Dr. Figueroa) request. For withdrawal life support today and transition to comfort care. Objective Vital Signs Date Time Temp Pulse Resp B/P (MAP) Pulse Ox O2 Delivery O2 Flow Rate FiO2 04/26/17 06:00 123 04/26/17 06:00 179/47 04/26/17 04:51 100 100 04/26/17 04:00 103.6 04/26/17 00:00 20 04/23/17 18:05 Ventilator Intake and Output 04/26/17 04/26/17 04/27/17 08:00 16:00 00:00 Intake Total 1202.5 ml Output Total 75 ml Balance 1127.5 ml Result Diagram: 04/25/17 0150 04/26/17 0500 Other Results Last Impressions Chest X-Ray 04/25/17 0600 Signed Impressions: Service Date/Time: Tuesday, April 25, 2017 03:57 - CONCLUSION: Some improvement in the aeration of the lungs bilaterally. Donovan Pierce MD Carotid Artery Ultrasound 04/24/17 0000 Signed Impressions: Service Date/Time: Monday, April 24, 2017 12:33 - CONCLUSION: 1. No sonographic or Doppler findings of a hemodynamically significant stenosis in the cervical vessels. No significant plaquing. 2. However, both internal carotid and vertebral artery waveforms show high resistance. This can be seen with distal occlusion or increased intracranial pressures. CTA of the cervical vessels could be performed for further characterization. Nam Amaya MD Brain MRI 04/24/17 0000 Signed Impressions: Service Date/Time: Monday, April 24, 2017 10:27 - CONCLUSION: 1. 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 2. Left parietal lobe infarct containing petechial hemorrhage 3. Scattered deep white matter infarcts in the left frontal lobe. 4. Peripheral left cerebellar infarct 5. Right cerebral mass effect with mild shift. Jd Covington MD Lower Extremity Ultrasound 04/23/17 0000 Signed Impressions: Service Date/Time: Sunday, April 23, 2017 16:26 - CONCLUSION: No DVT is identified within either lower extremity. Lucian Cai MD Head CT 04/23/17 0000 Signed Impressions: Service Date/Time: Sunday, April 23, 2017 21:50 - CONCLUSION: Abnormal area of low density in the left parietal high convexity primarily in the subcortical white matter. It most likely represents an area of vasogenic edema but cytotoxic edema associated with ischemia could have a similar appearance. When patient condition permits consider further characterization with MRI. Lucian Cai MD Chest CT 04/23/17 Signed Impressions: Service Date/Time: Sunday, April 23, 2017 21:54 - CONCLUSION: 1. Severe airspace consolidation bilaterally in a distribution favoring severe pulmonary edema as the etiology. 2. Moderate size right and small left pleural effusion. Lucian Cai MD Abdomen/Pelvis CT 04/23/17 Signed Impressions: Service Date/Time: Sunday, April 23, 2017 21:54 - CONCLUSION: 1. No acute finding is identified within the abdomen or pelvis on this noncontrast examination. 2. There are expected changes associated with the right femoral venous line including surrounding inflammation and mild hemorrhage. 3. Mild hepatomegaly. 4. Please refer to chest CT report for description of the supradiaphragmatic findings. Lucian Cai MD Imaging Last Impressions Chest X-Ray 04/25/17 0600 Signed Impressions: Service Date/Time: Tuesday, April 25, 2017 03:57 - CONCLUSION: Some improvement in the aeration of the lungs bilaterally. Donovan Pierce MD Carotid Artery Ultrasound 04/24/17 Signed Impressions: Service Date/Time: Monday, April 24, 2017 12:33 - CONCLUSION: 1. No sonographic or Doppler findings of a hemodynamically significant stenosis in the cervical vessels. No significant plaquing. 2. However, both internal carotid and vertebral artery waveforms show high resistance. This can be seen with distal occlusion or increased intracranial pressures. CTA of the cervical vessels could be performed for further characterization. Nam Amaya MD Brain MRI 04/24/17 Signed Impressions: Service Date/Time: Monday, April 24, 2017 10:27 - CONCLUSION: 1. 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 2. Left parietal lobe infarct containing petechial hemorrhage 3. Scattered deep white matter infarcts in the left frontal lobe. 4. Peripheral left cerebellar infarct 5. Right cerebral mass effect with mild shift. Jd Covington MD Lower Extremity Ultrasound 04/23/17 Signed Impressions: Service Date/Time: Sunday, April 23, 2017 16:26 - CONCLUSION: No DVT is identified within either lower extremity. Lucian Cai MD Head CT 04/23/17 Signed Impressions: Service Date/Time: Sunday, April 23, 2017 21:50 - CONCLUSION: Abnormal area of low density in the left parietal high convexity primarily in the subcortical white matter. It most likely represents an area of vasogenic edema but cytotoxic edema associated with ischemia could have a similar appearance. When patient condition permits consider further characterization with MRI. Lucian Cai MD Chest CT 04/23/17 Signed Impressions: Service Date/Time: Sunday, April 23, 2017 21:54 - CONCLUSION: 1. Severe airspace consolidation bilaterally in a distribution favoring severe pulmonary edema as the etiology. 2. Moderate size right and small left pleural effusion. Lucian Cai MD Abdomen/Pelvis CT 04/23/17 Signed Impressions: Service Date/Time: Sunday, April 23, 2017 21:54 - CONCLUSION: 1. No acute finding is identified within the abdomen or pelvis on this noncontrast examination. 2. There are expected changes associated with the right femoral venous line including surrounding inflammation and mild hemorrhage. 3. Mild hepatomegaly. 4. Please refer to chest CT report for description of the supradiaphragmatic findings. Lucian Cai MD Objective Remarks GENERAL: 36-year-old male, critically ill currently orotracheally intubated SKIN: Cool left lower extremity. Signs of septic emboli with petechial hemorrhage bilateral feet left greater than right. HEAD: Atraumatic. Normocephalic. EYES: Pupils equal and round about 2 mm bilaterally, non reactive. No scleral icterus. No injection or drainage. ENT: No nasal bleeding or discharge. Mucous membranes pink and moist. Oropharynx without erythema NECK: Trachea midline. No JVD. CARDIOVASCULAR: Tachycardic, RR. S1, S2. RESPIRATORY: B/l equal air entry GASTROINTESTINAL: Abdomen soft, non-tender, nondistended. Hypoactive bowel sounds appreciated MUSCULOSKELETAL: Extremities with 1+ bilateral lower extremity below the knee edema. No obvious deformities. Noted septic emboli changes bilateral lower extremities/livedo reticularis NEUROLOGICAL: Off sedation, unresponsive, no corneal/gag reflex. not withdrawing to pain to deep noxious stimuli A/P Assessment and Plan Neuro/Psych: Acute toxic metabolic encephalopathy Right ICA occlusion Left parietal lobe mass Off sedation unresponsive CT brain revealed cerebral edema in the left parietal lobe. MRI brain revealed right ICA occlusion with a 4 mm shift right to left, left parietal lobe hemorrhage/abscess/infarct with changes likely embolic infarcts in the left frontal lobe and left cerebellar and right cerebral regions. Neurosurgery is following. Patient's father -Dr. Maza wants to hold off on any neurosurgical intervention at this time( decompressive hemicraniectomy) On levetiracetam 250 mg IV twice a day.. There are no optimal medications for seizure prophylaxis with hepatic and renal failure Urine drug screen, revealed positive amphetamines, opiates and benzodiazepines on thiamine, folate and multivitamin with possible prior history of EtOH use. 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 Status post 5 L crystalloid in ED IVF D5W+2 amps bicarb @75ml/hr On Levophed and Vasopressin keep MAP>65mmHg Serial lactic acid trend- Lactic acid trending down Echo showed EF 55-60%, Vegetations on Aortic valve, Severe AR Resp: Acute hypoxic hypercapnic respiratory failure PRVC 20/550/ Ventilator bundle Albuterol/ipratropium aerosols every 6 hours with albuterol aerosols every 2 hours as needed for dyspnea Spontaneous breathing trials when clinically indicated CXR yesterday some improvements in aerations of lungs b/l GI: Elevated transaminases- davidley 2nd Hepatic shock Hypoalbuminemia OG tube to LIWS Lansoprazole for GI prophylaxis Docusate sodium/senna 1 tablet twice a day for bowel regimen Follow-up on CT abdomen/pelvis revealed no acute intra-abdominal findings Endo: Sliding-scale insulin with Accu-Cheks to maintain euglycemia Novulon r every 6 hours/low regimen TSH was normal Renal: Acute kidney injury currently oliguric Status post 5 L crystalloid in the ED. CT abdomen/pelvis no hydronephrosis Monitor renal function, I/O's, avoid nephrotoxins Nephrology is following. Off CRRT per dad's request. Heme: Leukocytosis Normocytic anemia Elevated INR Low fibrinogen Likely all secondary to severe sepsis/hepatic failure Monitor CBC, coags Vitamin K 10 milligrams IV 1 now. Kcentra 2500 units now and cryoprecipitate 1 04/24. ID: History of Mycobacterium exposure? Severe sepsis with history of IV drug use Enterococcus, GPC bacteremia On Dapto, Cefepime, Teflaro, Flagyl. ID is following. Monitor CK's Received 1 dose of vancomycin and piperacillin/tazobactam in ED urine pneumococcal and Legionella antigens negative BC from 04/24: GPC MSK: PT evaluate and treat Dopplers bilateral extremity is negative for DVT these are likely embolic from valvular Access - Utilize right femoral CVL placed in ED. Prophylaxis -GI -lansoprazole - DVT - SCD/holding pharmacological prophylaxis elevated INR Poor prognosis given MODS. Discussed with Dr. Gautam Plan to proceed with withdrawal life support and transition to comfort care today Level 1 Maryanne Sy MD Apr 26, 2017 07:17
[2017-04-26 07:24] LABS: CKMB 23.2 NG/ML (0.5-3.6)
[2017-04-26] MEDS: THIAMINE INJ 100 MG in SODIUM CHLORIDE 0.9% INJ 100 ML IV SCH (09:00)
[2017-04-26] MEDS: ARTIFICIAL TEARS OPTH SOLN 15 ML BTL EACH EYE SCH (09:00)
[2017-04-26] MEDS: MULTIVITAMIN TAB PO SCH (09:00)
[2017-04-26] MEDS: DOCUSATE SODIUM 50 MG/SENNA 8.6 MG TAB PO SCH (09:00)
[2017-04-26] MEDS: FOLIC ACID 1 MG TAB PO SCH (09:00)
[2017-04-26] MEDS: LANSOPRAZOLE SOLUTAB 30 MG TAB G-TUBE SCH (09:06)
[2017-04-26] MEDS: CHLORHEXIDINE 0.12% (ORAL KIT) 15 ML CUP MT SCH (09:10)
[2017-04-26] MEDS: SODIUM CHLORIDE 0.9% FLUSH 10 ML FLUSH IV FLUSH SCH ×2 (09:10→09:11)
[2017-04-26] MEDS: NOREPINEPHRINE 4 MG/D5W 250 ML IV PRN (09:29)
--- NOTE | 2017-04-26 10:50 | HHI.PR ---
Addendum to Inpatient Note Addendum Reason: Additional Documentation Additional Information Per francisco Ohara: Terminal withdrawal being considered today. Will sign off please call back if any change in clinical condition or plans adan since CK is continuing to rise. Kristi Red MD Apr 26, 2017 10:50
[2017-04-26] MEDS ORDERED: HYDROmorphone HCL PF 4 MG/ML VIAL IV PUSH ONE (11:00)
[2017-04-26] MEDS ORDERED: LORazepam 2 MG/ML VIAL IV PUSH ONE ×2 (11:00→11:30)
[2017-04-26] MEDS ORDERED: HYOSCYAMINE 0.5 MG/ML AMP IV PUSH ONE (11:00)
[2017-04-26] MEDS ORDERED: HYDROmorphone HCL PF 2 MG/ML VIAL IV PUSH ONE (11:30)
[2017-04-26] MEDS ORDERED: ACETAMINOPHEN 650 MG SUPP RECTAL PRN (11:30)
[2017-04-26] MEDS ORDERED: FUROSEMIDE 20 MG/2 ML VIAL IV PUSH PRN (11:30)
[2017-04-26] MEDS ORDERED: BISACODYL 10 MG SUPP RECTAL PRN (11:30)
[2017-04-26] MEDS ORDERED: HYDROmorphone HCL PF 4 MG/ML VIAL IV PUSH PRN (11:30)
[2017-04-26] MEDS ORDERED: HYOSCYAMINE 0.5 MG/ML AMP IV PUSH PRN (11:30)
[2017-04-26] MEDS ORDERED: LORazepam 2 MG/ML VIAL IV PUSH PRN ×3 (11:30)
[2017-04-26] MEDS ORDERED: HYDROmorphone HCL PF 2 MG/ML VIAL IV PUSH PRN (11:30)
[2017-04-26] MEDS ORDERED: CEFEPIME INJ 2,000 MG in SODIUM CHLORIDE 0.9% INJ 100 ML IV SCH (12:00)
[2017-04-26] MEDS ORDERED: HYDROmorphone HCL PF 4 MG/ML VIAL IV PUSH SCH (12:00)
[2017-04-26] MEDS ORDERED: LORazepam 2 MG/ML VIAL IV PUSH SCH (12:00)
--- NOTE | 2017-04-26 14:08 | OTSOAPIP ---
EILEEN BERGER REPORTS PATIENT BEING REMOVED FROM SERVICE TODAY. Therapist: Genna Pierre OTR/L Signature on file
--- NOTE | 2017-04-26 14:45 | HHI.HCPN ---
Reason for visit a. To assist with evaluation and management of symptoms including: Dyspnea , encephalopathy b. To assist medical decision maker(s) with: better understanding of current medical conditions; weighing benefits/burdens of medical treatment options; making medical treatment decisions. . Subjective/Interval History INTERVAL NOTE: The patient remains unresponsive off sedation. His temperature has been as high as 107 today. Family is gathering, anticipating withdrawal of life support to allow natural . . Family/friend interactions I discussed the patient with his father by telephone and then later in the room. He has elected to withdraw life support to allow natural today; additional family members are to be present by noon. . Advance Directives Living Will: Never completed Health Care Surrogate: Never completed Durable Power of Author'S Agent: Never completed Advance Directive Specifics Significant change in goals: Father requesting withdrawal of life support today . Objective Vital Signs Date Time Temp Pulse Resp B/P (MAP) Pulse Ox O2 Delivery O2 Flow Rate FiO2 04/26/17 12:00 122 20 120/53 (75) 100 139/40 (73) 04/26/17 12:00 100 04/26/17 12:00 122 04/26/17 11:29 100 100 04/26/17 10:00 128 04/26/17 10:00 106.8 128 20 155/29 (71) 100 124/28 (60) 04/26/17 09:29 129 153/32 04/26/17 08:12 100 100 04/26/17 08:00 100 04/26/17 08:00 126 04/26/17 08:00 107.5 126 20 117/52 (73) 100 152/42 (78) 04/26/17 06:00 123 04/26/17 06:00 123 179/47 04/26/17 05:30 121 178/34 04/26/17 05:15 123 184/39 04/26/17 05:00 123 261/261 04/26/17 04:51 100 100 04/26/17 04:00 103.6 120 140/59 (86) 100 172/41 (84) 04/26/17 04:00 100 04/26/17 04:00 120 04/26/17 03:30 119 179/38 04/26/17 03:15 119 180/39 04/26/17 02:45 117 180/43 04/26/17 02:00 116 04/26/17 01:45 116 164/33 04/26/17 00:16 97 80 04/26/17 00:00 80 04/26/17 00:00 102.9 112 20 140/65 (90) 99 162/45 (84) 04/26/17 00:00 112 04/25/17 23:18 111 166/37 04/25/17 22:58 110 167/38 04/25/17 22:00 108 04/25/17 20:08 100 40 04/25/17 20:00 102.6 103 20 127/59 (81) 95 156/42 (80) 04/25/17 20:00 103 04/25/17 20:00 40 04/25/17 18:23 99 155/38 04/25/17 18:22 96 85/33 04/25/17 18:00 100 04/25/17 16:00 40 04/25/17 16:00 96 04/25/17 16:00 97.6 96 20 124/60 (81) 100 152/46 (81) 04/25/17 15:26 100 40 Intake & Output 04/26/17 04/26/17 07:00 19:00 Intake Total 1405.0 ml 513 ml Output Total 75 ml Balance 1330.0 ml 513 ml Intake IV Total 1405.0 ml 513 ml Output Urine Total 75 ml Physical Exam CONSTITUTIONAL/GENERAL: This is an adequately nourished patient, in no apparent distress; on the ventilator in IMC, sedated.. TUBES/LINES/DRAINS: Endotracheal tube, fast catheter in the right neck, art line EYES: Pupils about 3 or 4 mm each, somewhat irregularly-shaped, and not reactive to light. No scleral icterus. No injection or drainage. Fundi not examined. CARDIOVASCULAR: Regular rate and rhythm with grade 2 systolic murmur. No JVD. Peripheral pulses symmetric. RESPIRATORY/CHEST: Symmetric, unlabored respirations. A few scattered rales bilateral. GASTROINTESTINAL: Abdomen soft, nondistended. No hepato-splenomegaly, or palpable masses. No guarding. Bowel sounds present. GENITOURINARY: Without palpable bladder distension. Hutchins catheter in place. MUSCULOSKELETAL: Extremities without clubbing, cyanosis, or edema. No joint tenderness or effusion noted. No calf tenderness. No mottling or clubbing. NEUROLOGICAL: Unresponsive to voice, touch, or pain PSYCHIATRIC: Unable to evaluate due to clinical condition . Diagnostic Tests Laboratory Laboratory Tests Test 04/23/17 15:45 04/23/17 16:13 04/23/17 17:20 04/23/17 17:31 White Blood Count 37.5 TH/MM3 (4.0-11.0) Red Blood Count 3.83 MIL/MM3 (4.50-5.90) Hemoglobin 9.9 GM/DL (13.0-17.0) Hematocrit 31.8 % (39.0-51.0) Mean Corpuscular Volume 83.2 FL (80.0-100.0) Mean Corpuscular Hemoglobin 25.9 PG (27.0-34.0) Mean Corpuscular Hemoglobin Concent 31.1 % (32.0-36.0) Red Cell Distribution Width 16.2 % (11.6-17.2) Platelet Count 206 TH/MM3 (150-450) Mean Platelet Volume 10.1 FL (7.0-11.0) Neutrophils (%) (Auto) 83.6 % (16.0-70.0) Lymphocytes (%) (Auto) 10.8 % (9.0-44.0) Monocytes (%) (Auto) 4.6 % (0.0-8.0) Eosinophils (%) (Auto) 0.2 % (0.0-4.0) Basophils (%) (Auto) 0.8 % (0.0-2.0) Neutrophils # (Auto) 31.4 TH/MM3 (1.8-7.7) Lymphocytes # (Auto) 4.1 TH/MM3 (1.0-4.8) Monocytes # (Auto) 1.7 TH/MM3 (0-0.9) Eosinophils # (Auto) 0.1 TH/MM3 (0-0.4) Basophils # (Auto) 0.3 TH/MM3 (0-0.2) CBC Comment AUTO DIFF Differential Total Cells Counted 100 Neutrophils % (Manual) 83 % (16-70) Band Neutrophils % 2 % (0-6) Lymphocytes % 10 % (9-44) Monocytes % 3 % (0-8) Neutrophils # (Manual) 32.6 TH/MM3 (1.8-7.7) Myelocytes 2 % (0-0) Nucleated Red Blood Cells 1 /100 WBC (0-0) Differential Comment FINAL DIFF MANUAL Platelet Estimate NORMAL (NORMAL) Platelet Morphology Comment NORMAL (NORMAL) [place] Cells 1+ (NORMAL) Keratocytes 1+ (NORMAL) Prothrombin Time 20.7 SEC (9.8-11.6) Prothromb Time International Ratio 1.8 RATIO Activated Partial Thromboplast Time 29.6 SEC (24.3-30.1) Fibrinogen 59 mg/dL (227-377) Urine Color YELLOW (YELLW/STRAW) Urine Turbidity HAZY (CLEAR) Urine pH 5.0 (5.0-8.5) Urine Specific [place] 1.018 (1.002-1.035) Urine Protein 30 mg/dL (NEG-TRACE) Urine Glucose (UA) 70 mg/dL (NEG) Urine Ketones NEG mg/dL (NEG) Urine Occult Blood MOD (NEG) Urine Nitrite NEG (NEG) Urine Bilirubin NEG (NEG) Urine Urobilinogen LESS THAN 2.0 MG/DL (LESS Urine Leukocyte Esterase NEG (NEG) Urine WBC 1 /hpf (0-5) Urine Amorphous Sediment RARE Urine Bacteria RARE /hpf (NONE) Urine Hyaline Casts 4 /lpf (RARE) Urine Granular Casts 9 /lpf (NONE) Urine Mucus FEW /lpf (OCC) Microscopic Urinalysis Comment CULT NOT INDICATED Urine Eosinophils NONE SEEN /HPF (NONE SEEN) Urine Random Creatinine 123.5 MG/DL Urine Random Sodium 7 MEQ/L Lactic Acid Level 13.7 mmol/L (0.4-2.0) 9.0 mmol/L (0.4-2.0) Blood Gas Puncture Site LT RADIAL Blood Gas Patient Temperature 98.6 Blood Gas HCO3 11 mmol/L (22-26) Blood Gas Base Excess -15.7 mmol/L (-2-2) Blood Gas Oxygen Saturation 97 % (90-100) Arterial Blood pH 7.19 (7.380-7.420) Arterial Blood Partial Pressure CO2 30 mmHg (38-42) Arterial Blood Partial Pressure O2 184 mmHG (61-120) Arterial Blood Oxygen Content 13.0 Vol % (12.0-20.0) Arterial Blood Carboxyhemoglobin 0.9 % (0-4) Arterial Blood Methemoglobin 0.4 % (0-2) Blood Gas Hemoglobin 9.2 G/DL (12.0-16.0) Oxygen Delivery Device VENTILATOR Blood Gas Ventilator Setting AC 14/550/5+ Blood Gas Inspired Oxygen 100 % Blood Urea Nitrogen 35 MG/DL (7-18) Creatinine 2.25 MG/DL (0.60-1.30) Random Glucose 105 MG/DL (74-106) Total Protein 6.8 GM/DL (6.4-8.2) Albumin 1.8 GM/DL (3.4-5.0) Calcium Level 7.3 MG/DL (8.5-10.1) Alkaline Phosphatase 139 U/L (45-117) Aspartate Amino Transf (AST/SGOT) 1455 U/L (15-37) Alanine Aminotransferase (ALT/SGPT) 493 U/L (12-78) Total Bilirubin 0.9 MG/DL (0.2-1.0) Sodium Level 127 MEQ/L (136-145) Potassium Level 5.6 MEQ/L (3.5-5.1) Chloride Level 93 MEQ/L (98-107) Carbon Dioxide Level 16.0 MEQ/L (21.0-32.0) Anion Gap 18 MEQ/L (5-15) Estimat Glomerular Filtration Rate 33 ML/MIN (>89) Protein Corrected Calcium 7.5 MG/DL (8.5-10.1) Troponin I 5.29 NG/ML (0.02-0.05) Salicylates Level LESS THAN 1.7 MG/DL Test 04/23/17 20:30 04/23/17 22:15 04/24/17 04:00 04/24/17 05:20 Lactic Acid Level 7.2 mmol/L (0.4-2.0) 12.7 mmol/L (0.4-2.0) Urine Opiates Screen POS (NEG) Urine Barbiturates Screen NEG (NEG) Urine Amphetamines Screen POS (NEG) Urine Benzodiazepines Screen POS (NEG) Urine Cocaine Screen NEG (NEG) Urine Cannabinoids Screen NEG (NEG) Potassium Level 5.4 MEQ/L (3.5-5.1) 6.3 MEQ/L (3.5-5.1) Phosphorus Level 8.2 MG/DL (2.5-4.9) 9.0 MG/DL (2.5-4.9) Magnesium Level 2.6 MG/DL (1.5-2.5) 2.4 MG/DL (1.5-2.5) Ammonia 19 MCMOL/L (11-32) Total Creatine Kinase 1689 U/L (39-308) Creatine Kinase MB 15.7 NG/ML (0.5-3.6) Creatine Kinase MB % 0.9 % (0.0-4.0) Troponin I 4.60 NG/ML (0.02-0.05) 4.28 NG/ML (0.02-0.05) Amylase Level 136 U/L (25-115) Lipase 181 U/L (73-393) Thyroid Stimulating Hormone 3rd Gen 0.854 uIU/ML (0.358-3.740) Acetaminophen Level LESS THAN 2.0 MCG/ML Ethyl Alcohol Level LESS THAN 3 MG/DL (0-5) B-Hydroxybutyrate 0.16 MMOL/L (0.00-0.39) White Blood Count 23.3 TH/MM3 (4.0-11.0) Red Blood Count 3.01 MIL/MM3 (4.50-5.90) Hemoglobin 8.0 GM/DL (13.0-17.0) Hematocrit 24.7 % (39.0-51.0) Mean Corpuscular Volume 82.1 FL (80.0-100.0) Mean Corpuscular Hemoglobin 26.5 PG (27.0-34.0) Mean Corpuscular Hemoglobin Concent 32.3 % (32.0-36.0) Red Cell Distribution Width 16.0 % (11.6-17.2) Platelet Count 135 TH/MM3 (150-450) Mean Platelet Volume 9.6 FL (7.0-11.0) Neutrophils (%) (Auto) 86.2 % (16.0-70.0) Lymphocytes (%) (Auto) 7.6 % (9.0-44.0) Monocytes (%) (Auto) 5.9 % (0.0-8.0) Eosinophils (%) (Auto) 0.0 % (0.0-4.0) Basophils (%) (Auto) 0.3 % (0.0-2.0) Neutrophils # (Auto) 20.0 TH/MM3 (1.8-7.7) Lymphocytes # (Auto) 1.8 TH/MM3 (1.0-4.8) Monocytes # (Auto) 1.4 TH/MM3 (0-0.9) Eosinophils # (Auto) 0.0 TH/MM3 (0-0.4) Basophils # (Auto) 0.1 TH/MM3 (0-0.2) CBC Comment AUTO DIFF Differential Total Cells Counted 100 Neutrophils % (Manual) 88 % (16-70) Band Neutrophils % 2 % (0-6) Lymphocytes % 3 % (9-44) Monocytes % 4 % (0-8) Neutrophils # (Manual) 21.7 TH/MM3 (1.8-7.7) Myelocytes 3 % (0-0) Differential Comment FINAL DIFF MANUAL Platelet Estimate LOW (NORMAL) Platelet Morphology Comment NORMAL (NORMAL) Ovalocytes 1+ (NORMAL) [place] Cells 1+ (NORMAL) Prothrombin Time 27.1 SEC (9.8-11.6) Prothromb Time International Ratio 2.4 RATIO Activated Partial Thromboplast Time 38.0 SEC (24.3-30.1) Blood Urea Nitrogen 47 MG/DL (7-18) Creatinine 3.09 MG/DL (0.60-1.30) Random Glucose 78 MG/DL (74-106) Total Protein 5.0 GM/DL (6.4-8.2) Albumin 1.2 GM/DL (3.4-5.0) Calcium Level 5.7 MG/DL (8.5-10.1) Alkaline Phosphatase 103 U/L (45-117) Aspartate Amino Transf (AST/SGOT) 5358 U/L (15-37) Alanine Aminotransferase (ALT/SGPT) 1668 U/L (12-78) Total Bilirubin 1.3 MG/DL (0.2-1.0) Sodium Level 134 MEQ/L (136-145) Chloride Level 99 MEQ/L (98-107) Carbon Dioxide Level 14.6 MEQ/L (21.0-32.0) Anion Gap 20 MEQ/L (5-15) Estimat Glomerular Filtration Rate 23 ML/MIN (>89) Protein Corrected Calcium 6.6 MG/DL (8.5-10.1) Hepatitis A IgM Antibody NEGATIVE (NEGATIVE) Hepatitis B Surface Antigen NEGATIVE (NEGATIVE) Hepatitis B Core IgM Antibody NEGATIVE (NEGATIVE) Hepatitis C Antibody NEGATIVE (NEGATIVE) HIV (1&2) Antibody NEGATIVE (NEGATIVE) Blood Gas Puncture Site RT FEMORAL Blood Gas Patient Temperature 98.6 Blood Gas HCO3 8 mmol/L (22-26) Blood Gas Base Excess -18.6 mmol/L (-2-2) Blood Gas Oxygen Saturation 95 % (90-100) Arterial Blood pH 7.21 (7.380-7.420) Arterial Blood Partial Pressure CO2 21 mmHg (38-42) Arterial Blood Partial Pressure O2 134 mmHg (61-120) Arterial Blood Oxygen Content 11.5 Vol % (12.0-20.0) Arterial Blood Carboxyhemoglobin 0.4 % (0-4) Arterial Blood Methemoglobin 1.2 % (0-2) Blood Gas Hemoglobin 8.4 G/DL (12.0-16.0) Oxygen Delivery Device VENTILATOR Blood Gas Ventilator Setting PRVC/AC Blood Gas Inspired Oxygen 40 % Test 04/24/17 09:30 04/24/17 12:00 04/24/17 13:00 04/24/17 15:00 Potassium Level 5.7 MEQ/L (3.5-5.1) 5.2 MEQ/L (3.5-5.1) Procalcitonin 21.44 ng/mL (0.00-0.08) Prothrombin Time 24.1 SEC (9.8-11.6) 24.9 SEC (9.8-11.6) Prothromb Time International Ratio 2.1 RATIO 2.2 RATIO Activated Partial Thromboplast Time 35.9 SEC (24.3-30.1) 38.0 SEC (24.3-30.1) Fibrinogen 177 mg/dL (227-377) 200 mg/dL (227-377) M. tuberculosis Complex DNA (PCR) NOT DETECTED (NOT DETECT) Blood Gas Puncture Site ART LINE Blood Gas Patient Temperature 98.6 Blood Gas HCO3 15 mmol/L (22-26) Blood Gas Base Excess -9.2 mmol/L (-2-2) Blood Gas Oxygen Saturation 92 % (90-100) Arterial Blood pH 7.37 (7.380-7.420) Arterial Blood Partial Pressure CO2 27 mmHg (38-42) Arterial Blood Partial Pressure O2 81 mmHg (61-120) Arterial Blood Oxygen Content 11.6 Vol % (12.0-20.0) Arterial Blood Carboxyhemoglobin 1.0 % (0-4) Arterial Blood Methemoglobin 1.1 % (0-2) Blood Gas Hemoglobin 8.9 G/DL (12.0-16.0) Oxygen Delivery Device VENTILATOR Blood Gas Ventilator Setting [facility]/AC 550/20 Blood Gas Inspired Oxygen 40 % White Blood Count 24.7 TH/MM3 (4.0-11.0) Red Blood Count 3.16 MIL/MM3 (4.50-5.90) Hemoglobin 8.3 GM/DL (13.0-17.0) Hematocrit 25.2 % (39.0-51.0) Mean Corpuscular Volume 80.0 FL (80.0-100.0) Mean Corpuscular Hemoglobin 26.2 PG (27.0-34.0) Mean Corpuscular Hemoglobin Concent 32.8 % (32.0-36.0) Red Cell Distribution Width 15.7 % (11.6-17.2) Platelet Count 109 TH/MM3 (150-450) Mean Platelet Volume 10.2 FL (7.0-11.0) Blood Urea Nitrogen 63 MG/DL (7-18) Creatinine 3.92 MG/DL (0.60-1.30) Random Glucose 163 MG/DL (74-106) Total Protein 5.4 GM/DL (6.4-8.2) Calcium Level 5.9 MG/DL (8.5-10.1) Phosphorus Level 9.1 MG/DL (2.5-4.9) Magnesium Level 2.6 MG/DL (1.5-2.5) Sodium Level 134 MEQ/L (136-145) Chloride Level 93 MEQ/L (98-107) Carbon Dioxide Level 20.2 MEQ/L (21.0-32.0) Anion Gap 21 MEQ/L (5-15) Estimat Glomerular Filtration Rate 18 ML/MIN (>89) Protein Corrected Calcium 6.6 MG/DL (8.5-10.1) Test 04/24/17 16:30 04/24/17 18:15 04/24/17 20:00 04/24/17 23:19 Lactic Acid Level 10.5 mmol/L (0.4-2.0) Activated Partial Thromboplast Time 37.3 SEC (24.3-30.1) 42.0 SEC (24.3-30.1) Sodium Level 138 MEQ/L (136-145) Serum Osmolality 307 MOSM/KG (275-295) Test 04/24/17 23:30 04/25/17 01:50 04/25/17 01:55 04/25/17 05:00 Activated Partial Thromboplast Time 41.8 SEC (24.3-30.1) 41.1 SEC (24.3-30.1) 47.8 SEC (24.3-30.1) 42.7 SEC (24.3-30.1) White Blood Count 22.1 TH/MM3 (4.0-11.0) Red Blood Count 3.06 MIL/MM3 (4.50-5.90) Hemoglobin 7.8 GM/DL (13.0-17.0) Hematocrit 24.3 % (39.0-51.0) Mean Corpuscular Volume 79.5 FL (80.0-100.0) Mean Corpuscular Hemoglobin 25.5 PG (27.0-34.0) Mean Corpuscular Hemoglobin Concent 32.1 % (32.0-36.0) Red Cell Distribution Width 15.7 % (11.6-17.2) Platelet Count 109 TH/MM3 (150-450) Mean Platelet Volume 9.6 FL (7.0-11.0) Neutrophils (%) (Auto) 90.4 % (16.0-70.0) Lymphocytes (%) (Auto) 5.0 % (9.0-44.0) Monocytes (%) (Auto) 4.4 % (0.0-8.0) Eosinophils (%) (Auto) 0.0 % (0.0-4.0) Basophils (%) (Auto) 0.2 % (0.0-2.0) Neutrophils # (Auto) 19.9 TH/MM3 (1.8-7.7) Lymphocytes # (Auto) 1.1 TH/MM3 (1.0-4.8) Monocytes # (Auto) 1.0 TH/MM3 (0-0.9) Eosinophils # (Auto) 0.0 TH/MM3 (0-0.4) Basophils # (Auto) 0.0 TH/MM3 (0-0.2) CBC Comment AUTO DIFF Differential Comment AUTO DIFF CONFIRMED Prothrombin Time 26.1 SEC (9.8-11.6) Prothromb Time International Ratio 2.3 RATIO Fibrinogen 133 mg/dL (227-377) Blood Urea Nitrogen 58 MG/DL (7-18) Creatinine 3.98 MG/DL (0.60-1.30) Random Glucose 77 MG/DL (74-106) Total Protein 5.5 GM/DL (6.4-8.2) Albumin 1.7 GM/DL (3.4-5.0) Calcium Level LESS THAN 5.0 MG/DL Phosphorus Level 8.5 MG/DL (2.5-4.9) Magnesium Level 2.2 MG/DL (1.5-2.5) Alkaline Phosphatase 176 U/L (45-117) Aspartate Amino Transf (AST/SGOT) 86255 U/L (15-37) Alanine Aminotransferase (ALT/SGPT) 4685 U/L (12-78) Total Bilirubin 3.1 MG/DL (0.2-1.0) Sodium Level 137 MEQ/L (136-145) Potassium Level 4.3 MEQ/L (3.5-5.1) Chloride Level 92 MEQ/L (98-107) Carbon Dioxide Level 23.0 MEQ/L (21.0-32.0) Anion Gap 22 MEQ/L (5-15) Estimat Glomerular Filtration Rate 17 ML/MIN (>89) Serum Osmolality 311 MOSM/KG (275-295) Lactic Acid Level 12.6 mmol/L (0.4-2.0) Protein Corrected Calcium 5.6 MG/DL (8.5-10.1) Ammonia 34 MCMOL/L (11-32) Total Creatine Kinase 5015 U/L (39-308) Creatine Kinase MB 30.9 NG/ML (0.5-3.6) Creatine Kinase MB % 0.6 % (0.0-4.0) Test 04/25/17 05:39 04/25/17 08:10 04/25/17 09:00 04/25/17 10:00 Blood Gas Puncture Site ART LINE Blood Gas Patient Temperature 98.6 Blood Gas HCO3 19 mmol/L (22-26) Blood Gas Base Excess -3.9 mmol/L (-2-2) Blood Gas Oxygen Saturation 95 % (90-100) Arterial Blood pH 7.45 (7.380-7.420) Arterial Blood Partial Pressure CO2 28 mmHg (38-42) Arterial Blood Partial Pressure O2 113 mmHg (61-120) Arterial Blood Oxygen Content 11.3 Vol % (12.0-20.0) Arterial Blood Carboxyhemoglobin 1.2 % (0-4) Arterial Blood Methemoglobin 1.4 % (0-2) Blood Gas Hemoglobin 8.3 G/DL (12.0-16.0) Oxygen Delivery Device VENTILATOR Blood Gas Ventilator Setting PRVC/AC Blood Gas Inspired Oxygen 40 % Activated Partial Thromboplast Time 42.5 SEC (24.3-30.1) 56.5 SEC (24.3-30.1) 42.9 SEC (24.3-30.1) Test 04/25/17 11:00 04/25/17 11:30 04/25/17 12:12 04/25/17 21:45 Activated Partial Thromboplast Time 43.4 SEC (24.3-30.1) 56.9 SEC (24.3-30.1) Lactic Acid Level 10.5 mmol/L (0.4-2.0) 5.2 mmol/L (0.4-2.0) Sodium Level 132 MEQ/L (136-145) Serum Osmolality 305 MOSM/KG (275-295) Total Creatine Kinase 6857 U/L (39-308) Creatine Kinase MB 33.1 NG/ML (0.5-3.6) Creatine Kinase MB % 0.5 % (0.0-4.0) Lipase 1313 U/L (73-393) Test 04/26/17 00:15 04/26/17 00:42 04/26/17 05:00 Blood Gas Puncture Site CLARE Blood Gas Patient Temperature 98.6 Blood Gas HCO3 30 mmol/L (22-26) Blood Gas Base Excess 6.7 mmol/L (-2-2) Blood Gas Oxygen Saturation 90 % (90-100) Arterial Blood pH 7.49 (7.380-7.420) Arterial Blood Partial Pressure CO2 41 mmHg (38-42) Arterial Blood Partial Pressure O2 67 mmHG (61-120) Arterial Blood Oxygen Content 9.7 Vol % (12.0-20.0) Arterial Blood Carboxyhemoglobin 1.5 % (0-4) Arterial Blood Methemoglobin 0.7 % (0-2) Blood Gas Hemoglobin 7.6 G/DL (12.0-16.0) Oxygen Delivery Device VENTILATOR Blood Gas Ventilator Setting PRVC20/550/+8/0.9 Blood Gas Inspired Oxygen 80 % Sodium Level 131 MEQ/L (136-145) 131 MEQ/L (136-145) Serum Osmolality 301 MOSM/KG (275-295) 304 MOSM/KG (275-295) Lactic Acid Level 4.6 mmol/L (0.4-2.0) 4.3 mmol/L (0.4-2.0) Prothrombin Time 55.0 SEC (9.8-11.6) Prothromb Time International Ratio 4.7 RATIO Total Creatine Kinase 32404 U/L (39-308) Creatine Kinase MB 23.2 NG/ML (0.5-3.6) Creatine Kinase MB % 0.2 % (0.0-4.0) Vancomycin Level Trough 17.8 MCG/ML (5.0-10.0) Result Diagram: 04/25/17 0150 04/26/17 0500 Microbiology Microbiology Date/Time Source Procedure Growth Status 04/25/17 05:30 Blood Peripheral Aerobic Blood Culture - Preliminary Staph Sp Coagulase Negative Resulted 04/25/17 05:30 Blood Peripheral Anaerobic Blood Culture - Preliminary NO GROWTH IN 1 DAY Resulted 04/24/17 11:51 Blood Peripheral Aerobic Blood Culture - Final Enterococcus Faecalis Complete 04/24/17 11:51 Anaerobic Blood Culture - Final Enterococcus Faecalis Complete 04/23/17 15:50 Blood Peripheral Aerobic Blood Culture - Final Enterococcus Faecalis Complete 04/23/17 15:50 Anaerobic Blood Culture - Final Enterococcus Faecalis Complete 04/23/17 15:45 Blood Peripheral Aerobic Blood Culture - Final Enterococcus Faecalis Complete 04/23/17 15:45 Anaerobic Blood Culture - Final Enterococcus Faecalis Complete 04/24/17 12:00 Sputum Endotracheal Acid Fast Stain - Final NO ACID FAST BACILLI SEEN Resulted 04/24/17 12:00 Sputum Endotracheal Mycobacterial Culture Pending Resulted 04/23/17 22:20 Sputum Endotracheal Gram Stain - Final Complete 04/23/17 22:20 Sputum Endotracheal Sputum Culture - Final MODERATE GROWTH NORMAL RESPIRATORY LUKASZ Complete 04/23/17 20:30 Urine Catheterized Urine Legionella Antigen - Final PRESUMPTIVE NEGATIVE FOR LEGIONELLA P... Complete 04/23/17 20:30 Urine Catheterized Urine Streptococcus pneumoniae Antigen (M - Final PRESUMPTIVE NEGATIVE FOR STREPTOCOCCU... Complete Procedures INTUBATION 04/23/17 Vas catheter 04/24/17 . Assessment and Plan Disease Oriented Problem List: (1) multisystem organ failure (neurologic, respiratory, hepatic, renal) (2) multiple ischemic strokes (3) endocarditis, aortic valve, with apparent emboli (4) history of IV drug abuse (5) history of positive PPD and cavitary lung lesion, not visible on current CT scan (6) sepsis (7) anemia Symptom Scale: (1) pain 0-10 Scale: Unable to quantify (2) encephalopathy 0-10 Scale: Unable to quantify Pertinent Non-Medical Issues Psychosocial: Born in [place], grew up here, IV substance abuse much of his life. , one 12-year-old son. Spiritual: He is not spiritual or amish Legal: The patient lacks capacity for decision-making and he will not regain that capacity. The patient is unmarried, has no adult children, and his only living parent is his father; the healthcare proxy decision-maker is thus his father. Ethical issues impacting care: None . Important Contacts Father: Dr. Anup Gautam [phone] . Prognosis This patient is terminal, with devastating brain injury as well as failure of lungs, liver, kidneys. . Code Status: No Code Plan * DO NOT RESUSCITATE * DECISION-MAKING: The patient is unmarried, has no adult children, and his only living parent is his father; the healthcare proxy decision-maker is thus his father. * GOALS: The patient's father, Dr. Anup Gautam, has now requested withdrawal of life support to allow natural today * SYMPTOMS: The patient's encephalopathy is profound and not treatable. It is difficult to say if the patient has any pain or discomfort at this time, but he has no signs of discomfort at this time * Anticipatory guidance provided, orders written for withdrawal of life support * Palliative Care will continue to follow the patient during this hospitalization. . Time Spent Total Floor Time (mins): 48 Face to Face Time (mins): 25 >50% Counseling/Coord of Care: Yes (d/w Dr. Hartmann and with RN) Attestation To help prompt me to consider important information that might be impacting today's encounter and assessment, information from prior notes written by myself or my colleagues may have been "brought forward" into today's note. My signature on this note, however, is an attestation that I personally performed the exam, history, and/or decision-making noted today, and, unless otherwise indicated, the interactions with patient, family, and staff as well as the review of records all occurred today. I also attest that the listed assessment and stated plan reflect my best clinical judgment today based on the combination of historical information, prior notes, and today's exam/ interactions. When time spent is documented, it refers only to time spent today by the signer, or if indicated, combined time spent today by collaborating physician/nurse practitioner. Simona Warner MD Apr 26, 2017 14:44
[2017-04-28 07:51] LABS: C PNEUMO IGA <1:16 (<1:16); C PNEUMO IGM <1:10 (<1:10)
== END 2017-04-26 13:25 | disposition expired | DRG 208 ==
LOC: NEPC 15:14 → NEDA 17:17 → HIME 18:05
PROVIDERS: ADMIT Internal Medicine Critical Care Medicine; ATTEND Internal Medicine Critical Care Medicine
PROC: 5A1945Z Respiratory Ventilation, 24-96 Consecutive Hours (ICD-10-PCS; principal; 2017-04-23)
PROC: 0BH17EZ Insertion of Endotracheal Airway into Trachea, Via Natural or Artificial Opening (ICD-10-PCS; 2017-04-23)
PROC: 06HY33Z Insertion of Infusion Device into Lower Vein, Percutaneous Approach (ICD-10-PCS; 2017-04-23)
PROC: 04HY32Z Insertion of Monitoring Device into Lower Artery, Percutaneous Approach (ICD-10-PCS; 2017-04-24)
PROC: 30233K1 Transfusion of Nonautologous Frozen Plasma into Peripheral Vein, Percutaneous Approach (ICD-10-PCS; 2017-04-24)
PROC: 30233M1 Transfusion of Nonautologous Plasma Cryoprecipitate into Peripheral Vein, Percutaneous Approach (ICD-10-PCS; 2017-04-24)
PROC: 05HM33Z Insertion of Infusion Device into Right Internal Jugular Vein, Percutaneous Approach (ICD-10-PCS; 2017-04-24)
PROC: 5A1D70Z Performance of Urinary Filtration, Intermittent, Less than 6 Hours Per Day (ICD-10-PCS; 2017-04-24)
DX: J96.01 Acute respiratory failure with hypoxia (principal); K72.00 Acute and subacute hepatic failure without coma; I26.90 Septic pulmonary embolism without acute cor pulmonale; G93.6 Cerebral edema; A41.81 Sepsis due to Enterococcus; I33.9 Acute and subacute endocarditis, unspecified; J69.0 Pneumonitis due to inhalation of food and vomit; D68.8 Other specified coagulation defects; E87.2 Acidosis; G92 Toxic encephalopathy; N17.0 Acute kidney failure with tubular necrosis; R65.21 Severe sepsis with septic shock; G04.90 Encephalitis and encephalomyelitis, unspecified; I63.131 Cerebral infarction due to embolism of right carotid artery; I24.8 Other forms of acute ischemic heart disease; E87.1 Hypo-osmolality and hyponatremia; I76 Septic arterial embolism; E88.09 Other disorders of plasma-protein metabolism, not elsewhere classified; F17.210 Nicotine dependence, cigarettes, uncomplicated; J96.02 Acute respiratory failure with hypercapnia; D64.9 Anemia, unspecified; F19.10 Other psychoactive substance abuse, uncomplicated; R74.0 Nonspecific elevation of levels of transaminase and lactic acid dehydrogenase [LDH]; E87.5 Hyperkalemia; R00.0 Tachycardia, unspecified; R76.11 Nonspecific reaction to tuberculin skin test without active tuberculosis; F11.10 Opioid abuse, uncomplicated; Z66 Do not resuscitate; Z51.5 Encounter for palliative care; B95.8 Unspecified staphylococcus as the cause of diseases classified elsewhere; E16.2 Hypoglycemia, unspecified; L08.9 Local infection of the skin and subcutaneous tissue, unspecified
CPT/HCPCS: 31500; 36430; 36556; 36600; 36620; 51702; 70450; 70551; 71010; 71250; 74176; 76937; 80048; 80053; 80074; 80202; 80307; 81001; 82010; 82140; 82150; 82550; 82552; 82570; 82805; 82948; 83605; 83690; 83735; 83930; 84100; 84132; 84145; 84155; 84295; 84300; 84443; 84484; 85007; 85025; 85027; 85384; 85610; 85730; 86631; 86632; 86703; 86738; 86900; 86901; 86927; 86965; 87015; 87040; 87070; 87077; 87116; 87186; 87205; 87206; 87449; 87556; 87641; 87798; 93005; 93306; 93880; 93970; 94002; 94003; 94640; 94664; 95819; 96365; 96366; 96368; C1769; C9132; J0330; J0456; J0610; J0692; J0712; J0878; J1170; J1644; J1815; J1953; J1980; J2060; J2150; J2250; J2543; J2720; J3010; J3370; J3411; J3430; J7030; J7040; J7050; J7070; J7189; P9017